=== PATIENT | male | born 1955 | race Caucasian/White ===

== ENCOUNTER 2024-04-23 14:05 | Outpatient (RCR) | payer MEDICARE, BC, SELFPAY | END 2024-08-21 23:59 | disposition home or self-care (01) | PROVIDERS: Visit Provider Orthopaedic Surgery | DX: M16.11 Unilateral primary osteoarthritis, right hip (principal); Z96.641 Presence of right artificial hip joint; M25.551 Pain in right hip; Z51.89 Encounter for other specified aftercare | CPT/HCPCS: 97110; 97162 ==

== ENCOUNTER 2024-04-24 09:47 | Outpatient (CLI) | payer MEDICARE, BC, SELFPAY | END 2024-04-24 09:48 | disposition home or self-care (01) | LOC: RAD 09:48 | PROVIDERS: Visit Provider Physician Assistant | DX: R01.1 Cardiac murmur, unspecified (principal); I35.0 Nonrheumatic aortic (valve) stenosis; I34.0 Nonrheumatic mitral (valve) insufficiency; I07.1 Rheumatic tricuspid insufficiency | CPT/HCPCS: 93306 ==

== ENCOUNTER 2024-04-30 06:58 | Day surgery (SDC) | payer MEDICARE, BC, SELFPAY ==
[2024-04-30] VITALS (15 sets, daily range): BP systolic 96–132; BP diastolic 53–84; PULSE 69–82; RESP 12–16; TEMP 36.3–37.1; O2SAT 92–96; BMI 38.0
--- OUTSIDE RECORDS SUMMARY | 2024-04-30 07:04 | XMS_ITS | Encounter Summary ---
Author Organization [facility] Address [address] [place] [address] Care Team Providers Care Roof Bolter Name Role Phone Claire Jimenez P.A.-C., P.A. Primary Care Provider Reason for Referral * Outpatient (Routine) - Closed Specialty Diagnoses / Procedures Referred By Lucinda franco Referred To Contact Diagnoses Preoperative Exam Procedures ECG 12 Lead Claire Jimenez MPAS, P.A.-C., P.A. [address] [place] [phone] [facility] Referral ID Status Reason Start Date Expiration Date Visits Re quested Visits Authorized [id number] Closed 04/15/2024 04/15/2025 1 1 Reason for Visit * Outpatient (Routine) - Closed Specialty Diagnoses / Procedures Referred By Lucinda franco Referred To Contact Diagnoses Preoperative Exam Procedures ECG 12 Lead Claire Jimenez MPAS, P.A.-C., P.A. [address] [place] [phone] [facility] Region Referral ID Status Reason Start Date Expiration Date Visits Re quested Visits Authorized [id number] Closed 04/15/2024 04/15/2025 1 1 Encounter Details Date Type Department Care Team (Latest Contact Info) Description 04/15/2024 4:40 PM CDT - 04/15/2024 11:59 PM CDT Hospital Encounter Department of Radiology in [place], [place] [address] [place] [phone] Claire Jimenez MPAS, P.A.-C., P.A. [address] [place] [phone] Preoperative Exam Discharge Disposition: Home or Self Care Social History Tobacco Use Types Packs/Day Years Used Date Smoking Tobacco: Never Smokeless Tobacco: Never Alcohol Use Standard Drinks/Week Comments Yes 2 (1 standard drink = 0.6 oz pur e alcohol) [facility] Utilities Answer Date Recorded In the past 12 months has [employer], oil, or water [employer] threatened to shut off services in your home? No 02/03/2024 Humiliation, Afraid, Rape, and Kick questionnair e Answer Date Recorded Within the last year, have y ou been afraid of your partner or ex-partner? No 10/27/2022 Within the last year, have y ou been humiliated or emotionally abused in other ways by your partner or ex-partner? No Within the last year, have y ou been kicked, hit, slapped, or otherwise physically hurt by your partner or ex-partner? No 10/27/2022 Within the last year, have y ou been raped or forced to have any kind of sexual activity by your partner or ex-partner? No 10/27/2022 Social Connection and Isolat ion Panel [NHANES] Answer Date Recorded In a typical week, how many times do you talk on the phone with family, friends, or neighbors? Three times a week 10/27/2022 How often do you get togethe r with friends or relatives? Once a week 10/27/2022 How often do you attend [facility] or adventism services? More than 4 times per year 10/27/2022 Do you belong to any clubs o r organizations such as samaritan groups, unions, fraternal or athletic groups, or school groups? Yes 10/27/2022 How often do you attend meet ings of the clubs or organizations you belong to? More than 4 times per year 10/27/2022 Are you , , di vorced, , never , or living with a partner? 10/27/2022 AUDIT-C Answer Date Recorded Q1: How often do you have a drink containing alc ohol? 2-4 times a month 10/27/2022 Q2: How many drinks containi ng alcohol do you have on a typical day when you are drinking? 1 or 2 10/27/2022 Q3: How often do you have si x or more drinks on one occasion? Never 10/27/2022 Overall Financial Resource Strain (CARDIA) Answe r Date Recorded How hard is it for you to pa y for the very basics like food, housing, medical care, and heating? Not hard at all 10/27/2022 PHQ-2 Answer Date Recorded PHQ-2 Score 2 04/09/2024 [facility] of Occupat ional Health - Occupational Stress Questionnaire Answer Date Recorded Do you feel stress - tense, restless, nervous, or anxious, or unable to sleep at night because your mind is troubled all the time - these days? To some extent 10/27/2022 Exercise Vital Sign Answer Date Recorde d On average, how many days pe r week do you engage in moderate to strenuous exercise (like a brisk walk)? 0 days 02/03/2024 On average, how many minutes do you engage in exercise at this level? 0 min 02/03/2024 Hunger Vital Sign Answer Date Recorded Within the past 12 months, y ou worried that your food would run out before you got the money to buy more. Never true 02/03/20 24 Within the past 12 months, t he food you bought just didn't last and you didn't have money to get more. Never true 02/03/2024 PRAPARE - Transportation Answer Date Re corded In the past 12 months, has l ack of transportation kept you from medical appointments or from getting medications? No 09/2023 In the past 12 months, has l ack of transportation kept you from meetings, work, or from getting things needed for daily living? No 02/03/2024 Nutrition Answer Date Recorded On average, how many serving s of fruits and vegetables do you eat per day (serving size is equal to 1 cup or approximately the size of a tennis ball)? 0-2 02/03/2024 Dental Answer Date Recorded Dental: Regular Dentist No 04/29/20 Employment Answer Date Recorded Employment status Employed and actively working without restrictions 02/03/2024 Housing Stability Answer Date Recorded What is your living situation today? I have a [facility] place to live 02/03/2024 Education Answer Date Recorded What is the highest level of school you have completed or the highest degree you have received? 12th grade 04/29/2022 Sex and Gender Information Value Date Recorded Sex Assigned at Male 04/29/2022 3:19 PM CDT Gender Identity Male 04/29/2022 3:19 PM CDT Sexual Orientation Straight 04/29/2022 3: 19 PM CDT documented as of this encounter Medications at Time of Discharge Medication Sig Dispensed Refills Start Date End Date calcium carbonate 650 mg calcium (1,625 mg) tablet Take 600 mg by mouth daily. cholecalciferol, vitamin D3, (cholecalciferol) 25 mcg (1,000 Unit) tablet Take 25 mcg by mouth daily. DME CPAPIndications:Apnea Sleep Obstructive DME Order 1 each 04/16/2024 rosuvastatin (Crestor) 10 mg tabletIndications:Hyperl ipidemia Take 1 tablet (10 mg total) by mouth daily. 90 tablet 3 04/16/2024 tamsulosin (FLOMAX) 0.4 mg 24 hr capsule Take 1 capsule (0.4 mg total) by mouth daily as needed (stent pain). 30 capsule 6 01/18/2024 UNABLE TO FIND Take 1 each by mouth daily. Med Name: RAMOS REYNA documented as of this encounter Plan of Treatment Upcoming Encounters Date Type Department Care Team (Latest Contact Info) Description 05/08/2024 4:00 PM CDT Office Visit Department of Family Medicine, [facility], in [place], [place] [address] [place] [phone] Claire Jimenez MPAS, P.A.-C., P.A. [address] [place] [phone] 05/10/2024 11:30 AM CDT Comprehensive Visit Department of Physical Medicine and Rehabilitation in [place] [address] [address] [place] [phone] Claire Jimenez MPAS, P.A.-C., P.A. [address] [place] [phone] Micaela Monae P.T. [address] [place] [phone] 07/10/2024 9:30 AM CUSTOMER SUPPORT ENGINEER Appointment Department of Cardiovascular Diseases in [place] [address] [address] [facility] [place] [phone] Claire Jimenez MPAS, P.A.-C., P.A. [address] [place] [phone] documented as of this encounter Procedures Procedure Name Priority Date/Time Associated Diagnosis Comments ECG Routine 04/15/2024 4:28 PM CDT Preoperative Exam documented in this encounter Results * ECG 12 Lead (04/15/2024 4:28 PM CDT) Ventricular Rate ECG/Min 82 BPM MUSE AZ Interval 198 ms MUSE QRSD Interval 82 ms MUSE QT Interval 388 ms MUSE QTC Interval 453 ms MUSE P Sapphire 69 degrees MUSE R Sapphire 31 degrees MUSE T Wave Sapphire 69 degrees MUSE 04/15/2024 4:28 PM CDT 04/15/2024 5:04 PM CDT Impressions MUSE - 04/15/2024 5:04 PM CDT Normal sinus rhythm Nonspecific ST and T wave abnormality No previous ECGs available Reviewed by DONTE Fink Narrative Procedure Note Juan Francisco Malik M.D., Ph.D. - 04/15/2024 IMPRESSION: Normal sinus rhythm Nonspecific ST and T wave abnormality No previous ECGs available Reviewed by DONTE Fink Claire PATEL P.A.-C., P.A. ECG ORDERABLES MUSE NA documented in this encounter Visit Diagnoses Diagnosis Preoperative Exam documented in this encounter Care Teams Roof Bolter Relationship Specialty Start Date End Date Claire Jimenez MPAS, P.A.Hebert., P.A. [address] [place] [phone] PCP - General Family Medicine 04/01/24 documented as of this encounter
--- OUTSIDE RECORDS SUMMARY | 2024-04-30 07:04 | XMS_ITS ---
Author Organization [facility] Address [address] [place] [address] Care Team Providers Care Optometric Assistant Name Role Phone Claire Jimenez, P.A.-C., P.A. Primary Care Provider Active Problems Problem Noted Date Diagnosed Date Stenosis Aortic Valve Acquired 04/29/2024 Overview (04/29/2024): 04/2024: new murmur heard on exam, echo confirmed mild aortic stenosis. 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 on 12/12/2022 Screening Cancer Colon 05/03/2022 Overview (05/03/2022): Added automatically from request for surgery [id number] Current Oncology Plans No current plan information found. Past Plans Hem/Onc Therapy Plan 1 Plan Name Start Date Discontinue Date Treatment Medications Discontinue Reason Plan Provider Leuprolide Acetate Every 24 Weeks 12/13/2022 03/24/2024 No medications scheduled. Amendment Change Michael Kingsley, TIMOTHY, C.N.P., D.N.P. Radiation Treatments * Plan Last Treated On Elapsed Days Fractions Treated Prescribed Fraction Dose Prescribed Total Dose [id number] 02 04/04/2023 36 26 of 26 270 cGy 7,020 cGy Reference Point Last Treated On Elapsed Days Session Dose Total Dose [id number] 04/04/2023 36 270 cGy 7,020 cGy Lifetime Dose Tracking * Chemical Lifetime Dose Automatic Entry Manual Entr y Radiation 33.8 mGy 33.8 mGy 0 mGy Fluoro Time 3.706 minutes 3.706 minutes 0 minutes Resolved Problems Problem Noted Date Diagnosed Date Resolved Date Tumor Prostate 10/27/2022 12/12/2022 Overview (10/27/2022): Added automatically from request for surgery [id number]
--- OUTSIDE RECORDS SUMMARY | 2024-04-30 07:04 | XMS_ITS | Encounter Summary ---
Author Organization [facility] Address [address] [place] [address] Care Team Providers Care Camper Assembler Name Role Phone No Contact, Pcp Primary Care Provider Unavailabl e Encounter Details Date Type Department Care Team (Late st Contact Info) Description 03/24/2024 Orders Only Department of Radiation Oncology in [place], [place] [address] [place] [phone] Demetri Dick M.D. [address] [place] [phone] Social History Tobacco Use Types Packs/Day Years Used Date Smoking Tobacco: Never Smokeless Tobacco: Never Alcohol Use Standard Drinks/Week Comments Yes 2 (1 standard drink = 0.6 oz pur e alcohol) [facility] Utilities Answer Date Recorded In the past 12 months has [facility] [employer], gas, oil, or water [employer] threatened to shut off services in your [...] week 10/27/2022 How often do you attend chur or jain services? More than 4 times per year 10/27/2022 Do you belong to any clubs o r organizations such as jewish groups, unions, fraternal or athletic groups, or [...] 10/27/2022 PHQ-2 Answer Date Recorded PHQ-2 Score 0 10/27/2022 [facility] of Occupat ional Health - Occupational Stress [...] Date Recorded Dental: Regular Dentist No 04/29/20 22 Employment Answer Date Recorded Employment status Employed and actively working without restrictions 02/03/2024 Housing Stability Answer Date Recorded What is your living situation today? I have a [facility] place to live 02/03/2024 Education Answer [...] PM CDT documented as of this encounter Plan of Treatment Upcoming Encounters Date Type Department Care Team (Latest Contact Info) Description 05/08/2024 4:00 PM CDT Office Visit Department of Family Medicine, [facility], in [place], [place] [address] [place] [phone] Claire Jimenez MPAS, P.A.-C., P.A. [address] [place] [phone] 05/10/2024 11:30 AM CDT Comprehensive Visit Department of Physical Medicine and Rehabilitation in [address] [phone] Claire Jimenez MPAS, P.A.-C., P.A. [address] [place] [phone] Micaela Monae P.T. [address] [place] [phone] 07/10/2024 9:30 AM POWERHOUSE HELPER Appointment Department of Cardiovascular Diseases in [address] [phone] Claire Jimenez MPAS, P.A.-C., P.A. [address] [place] [phone] documented as of this encounter Visit Diagnoses Not on filedocumented in this encounter Care Teams Camper Assembler Relationship Specialty Start Date End Date No Contact, Pcp PCP - General Family Medicine 07/31/19 03/31/24 documented as of this encounter
--- OUTSIDE RECORDS SUMMARY | 2024-04-30 07:04 | XMS_ITS | Encounter Summary ---
Author Organization [facility] Address [address] [place] [address] Care Team Providers Care Social Media Executive Name Role Phone Claire Jimenez P.A.-C., P.A. Primary Care Provider Reason for Visit * Reason Onset Date Comments Results 04/25/2024 ECG Encounter Details Date Type Department Care Team (Late st Contact Info) Description 04/25/2024 Clinical Communication Department of Family Medicine, [facility], in [place], [place] [address] [place] [phone] Claire Jimenez MPAS, P.A.-C., P.A. [address] [place] [phone] Results (ECG) Social History Tobacco Use Types Packs/Day Years Used Date Smoking Tobacco: Never Smokeless Tobacco: Never Alcohol Use Standard Drinks/Week Comments Yes 2 (1 standard drink = 0.6 oz pur e alcohol) [facility] Utilities Answer Date Recorded In the past 12 months has e electric, gas, oil, or water company threatened to shut off services in your [...] How often do you attend chur or sabianism services? More than 4 times per year 10/27/2022 Do you belong to any clubs o r organizations such as restorationist groups, unions, fraternal or athletic groups, or [...] Answer Date Recorded PHQ-2 Score 2 04/09/2024 [facility] [place] [facility] of Occupat ional Health - Occupational Stress [...] your living situation today? I have a [facility] place to live 02/03/2024 Education Answer [...] CDT Office Visit Department of Family Medicine, [facility], in [address] [phone] Claire Jimenez MPAS, P.A.-C., P.A. [address] [place] [address], [place] [phone] 05/10/2024 11:30 AM CDT Comprehensive Visit Department of Physical Medicine and Rehabilitation in [address] [place] [phone] Claire Jimenez MPAS, P.A.-C., P.A. [address] [place] [address], [place] [phone] Micaela Monae P.T. [address] [place] [phone] 07/10/2024 9:30 AM CONTINUOUS PILLOWCASE CUTTER Appointment Department of Cardiovascular Diseases in [address] [place] [phone] Claire Jimenez MPAS, P.A.-C., P.A. [address] [place] [phone] documented as of this encounter Visit Diagnoses Not on filedocumented in this encounter Care Teams Social Media Executive Relationship Specialty Start Date End Date Claire Jimenez MPAS, P.A.-C., P.A. [address] [place] [phone] PCP - General Family Medicine 04/01/24 documented as of this encounter
--- OUTSIDE RECORDS SUMMARY | 2024-04-30 07:04 | XMS_ITS | Encounter Summary ---
Author Organization [facility] Address [address] [place] [address] Care Team Providers Care Enforcement Safety Officer Name Role Phone Claire Jimenez P.A.-C., P.A. Primary Care Provider Encounter Details Date Type Department Care Team (Latest Contact Info) Description 04/15/2024 4:25 PM CDT - 04/15/2024 4:39 PM CDT Hospital Encounter Department of Laboratory Medicine in [place], [place] [address] [place] [phone] Claire Jimenez MPAS, P.A.-C., P.A. [address] [place] [phone] Preoperative Exam; Screening Lipid; Encounter For Screening For Cardiovascular Disorders; Screening Examination Diabetes Mellitus Discharge Disposition: Home or Self Care Social History Tobacco Use Types Packs/Day Years Used Date Smoking Tobacco: Never Smokeless Tobacco: Never Alcohol Use Standard Drinks/Week Comments Yes 2 (1 standard drink = 0.6 oz pur e alcohol) [facility] Utilities Answer Date Recorded In the past 12 months has [employer] electric, gas, oil, or water company threatened [...] week 10/27/2022 How often do you attend [facility] or sikh services? More than 4 times per year 10/27/2022 Do you belong to any clubs o r organizations such as jain groups, unions, fraternal or athletic groups, or [...] Answer Date Recorded PHQ-2 Score 2 04/09/2024 [facility] of Occupat ional Health - Occupational Stress [...] your living situation today? I have a [facility] place to live 02/03/2024 Education Answer [...] CDT Office Visit Department of Family Medicine, [facility], in [address] [phone] Claire Jimenez MPAS P.A.-C., P.A. [address] [place] [phone] 05/10/2024 11:30 AM CDT Comprehensive Visit Department of Physical Medicine and Rehabilitation in [address] [phone] Claire Jimenez MPAS, Yoel.A.-C., P.A. [address] [place] [phone] Micaela Monae P.T. [address] [place] [phone] 07/10/2024 9:30 AM BLOW MOLDER Appointment Department of Cardiovascular Diseases in [address] [phone] Claire Jimenez MPAS P.A.-C., P.A. [address] [place] [phone] documented as of this encounter Procedures Procedure Name Priority Date/Time Associated Diagnosis Comments LIPID PANEL, S Routine 04/15/2024 4:33 PM CDT Screening Lipid Encounter For Screening For Cardiovascular Disorders NT-PRO B-TYPE NATRIURETIC PEPTIDE (BNP), S Routine 04/15/2024 4:33 PM CDT Preoperative Exam CBC WITH DIFFERENTIAL, B Routine 04/15/2024 4:33 PM CDT Preoperative Exam HEMOGLOBIN A1C, B Routine 04/15/2024 4:3 3 PM CDT Screening Examination Diabetes Mellitus BASIC METABOLIC PANEL, S/P Routine 04/15/2024 4:33 PM CDT Preoperative Exam documented in this encounter Results * NT-Pro B-Type Natriuretic Peptide (BNP) (04/15/2024 4:33 PM CDT) NT-Pro BNP 89 <=540 pg/mL 04/15/2024 5:13 PM CDT [facility] Comment: NT-proBNP values less than 300 pg/mL have a 99% negative predictive value for excluding acute congestive heart failure. A cutoff of 1200 pg/mL for patients with an eGFR<60 yields a diagnostic sensitivity and specificity of 89% and 72% for acute congestive heart failure. A diagnostic NT-proBNP cutoff of 900 pg/mL has been suggested in adults 50-75 years of age in the absence of renal failure. Blood (Blood, Venous) 04/15/2024 4:33 PM CDT 04/15/2024 4:36 PM CDT Claire PATEL, P.A.-C., P.A. LAB BLOOD ADD-ON [facility] [address] [place] [address], [facility] [place] [address] [place] [phone] * (ABNORMAL) Hemoglobin A1c (04/15/2024 4:33 PM CDT) Hemoglobin A1c, B 6.0(H) 4.2 - 5.6 % 04/15/2024 5:01 PM CDT RDW Comment: Hemoglobin A1c values of 5.7-6.4 percent indicate an increased risk for developing diabetes mellitus. In diabetic patients, HbA1c goals should be discussed with healthcare provider. Blood (Blood, Venous) 04/15/2024 4:33 PM CDT 04/15/2024 4:36 PM CDT Claire PATEL, P.A.-C., P.A. LAB BLOOD ADD-ON [facility] [address] [place] [address], [facility] [place] [address] [place] [phone] * (ABNORMAL) Lipid Panel (04/15/2024 4:33 PM CDT) Triglycerides 333(H) mg/dL 04/15/2024 5:00 PM CDT RDW Comment: ----REFERENCE VALUE---- Normal: <150 mg/dL Borderline High: 150-199 mg/dL High: 200-499 mg/dL Very High: > or =500 mg/dL Cholesterol, Total 233(H) mg/dL 2023 5:00 PM CDT RDW Comment: ----REFERENCE VALUE---- Desirable: < 200 mg/dL Borderline High: 200 - 239 mg/dL High: > or = 240 mg/dL Cholesterol, LDL, Calculated 136(H) mg/dL 04/15/2024 5:00 PM CDT RDW Comment: ----REFERENCE VALUE---- Desirable: <100 mg/dL Above Desirable: 100-129 mg/dL Borderline High: 130-159 mg/dL High: 160-189 mg/dL Very High: >=190 mg/dL ----ADDITIONAL INFORMATION---- LDL cholesterol calculated using the Mcdermott/NIH equation. Cholesterol, HDL 37(L) >=40 mg/dL 04/15/20 5:00 PM CDT [facility] Cholesterol, Non-HDL, Calculated 196(H) mg/dL 04/15/2024 5:00 PM CDT [facility] Comment: ----REFERENCE VALUE---- Desirable: <130 mg/dL Above Desirable: 130-159 mg/dL Borderline High: 160-189 mg/dL High: 190-219 mg/dL Very High: > or =220 mg/dL Fasting (8 HR or more) No 04/15/2024 4:33 PM CDT [facility] Blood (Blood, Venous) 04/15/2024 4:33 PM CDT 04/15/2024 4:36 PM CDT Claire PATEL, P.A.-C., P.A. LAB BLOOD ADD-ON [facility] [address] [place] [address], [facility] [place] [address] [place] [phone] * Basic Metabolic Panel (04/15/2024 4:33 PM CDT) Potassium, P 4.5 3.6 - 5.2 mmol/L 04/15/2024 5:00 PM CDT [facility] Sodium, P 136 135 - 145 mmol/L 04/15/2024 5:00 PM CDT [facility] Chloride, P 100 98 - 107 mmol/L 04/15/2024 5:00 PM CDT [facility] Bicarbonate, P 25 22 - 29 mmol/L 04/15/2024 5:00 PM CDT [facility] Anion Gap, P 11 7 - 15 04/15/2024 5:00 PM CDT [facility] BUN (Blood Urea Nitrogen), P 18 8 - 24 mg/dL 04/15/2024 5:00 PM CDT [facility] Creatinine 1.16 0.74 - 1.35 mg/dL 04/15/2024 5:00 PM CDT [facility] Estimated GFR (eGFR) 68 >=60 mL/min/BSA 04/15/2024 5:00 PM CDT [facility] Comment: Estimated GFR calculated using the 2020 CKD_EPI creatinine equation. Calcium, Total, P 10.1 8.8 - 10.2 mg/dL 04/15/2024 5:00 PM CDT [facility] Glucose, P 98 70 - 140 mg/dL 04/15/2024 5:00 PM CDT [facility] Blood (Blood, Venous) 04/15/2024 4:33 PM CDT 04/15/2024 4:36 PM CDT Claire PATEL, P.A.-C., P.A. LAB BLOOD ADD-ON [facility] [address] [place] [address], [facility] [place] [address] [place] [address] * (ABNORMAL) CBC with Differential, Blood (04/15/2024 4:33 PM CDT) Hemoglobin 14.5 13.2 - 16.6 g/dL 04/15/2024 4:46 PM CDT [facility] Hematocrit 43.1 38.3 - 48.6 % 04/15/2024 4:46 PM CDT [facility] Erythrocytes 4.89 4.35 - 5.65 x10(12)/L 04/15/2024 4:46 PM CDT [facility] MCV 88.1 78.2 - 97.9 fL 04/15/2024 4:46 PM CDT [facility] RBC Distrib Width 13.0 11.8 - 14.5 % 04/15/2024 4:46 PM CDT [facility] Platelet Count 227 135 - 317 x10(9)/L 04/15/2024 4:46 PM CDT [facility] Leukocytes 5.4 3.4 - 9.6 x10(9)/L 04/15/2024 4:46 PM CDT [facility] Neutrophils 3.75 1.56 - 6.45 x10(9)/L 04/15/2024 4:46 PM CDT [facility] Lymphocytes 0.78(L) 0.95 - 3.07 x10(9)/L 04/15/2024 4:46 PM CDT [facility] Monocytes 0.65 0.26 - 0.81 x10(9)/L 04/15/2024 4:46 PM CDT [facility] Eosinophils 0.18 0.03 - 0.48 x10(9)/L 04/15/2024 4:46 PM CDT [facility] Basophils 0.04 0.01 - 0.08 x10(9)/L 04/15/2024 4:46 PM CDT [facility] Blood (Blood, Venous) 04/15/2024 4:33 PM CDT 04/15/2024 4:36 PM CDT Claire PATEL P.A.-C., P.A. LAB BLOOD ADD-ON [facility] [address] [place] [address], [facility] [place] [address] [place] [phone] documented in this encounter Visit Diagnoses Diagnosis Preoperative Exam Screening Lipid Encounter For Screening For Cardiovascular Disorders Screening Examination Diabetes Mellitus documented in this encounter Care Teams Enforcement Safety Officer Relationship Specialty Start Date End Date Claire Jimenez MPAS, P.A.-C., P.A. [address] [place] [address] [place] [phone] PCP - General Family Medicine 04/01/24 documented as of this encounter
--- OUTSIDE RECORDS SUMMARY | 2024-04-30 07:04 | XMS_ITS | Encounter Summary ---
Author Organization [facility] Address [address] [place] [address] Care Team Providers Care Interior Assemblies Installer Name Role Phone Claire Jimenez P.A.-C., P.A. Primary Care Provider Encounter Details Date Type Department Care Team (Late st Contact Info) Description 04/19/2024 Clinical Communication Department of Family Medicine, [facility], in [place], [place] [address] [place] [phone] Claire Jimenez MPAS, P.A.-C., P.A. [address] [place] [phone] Social History Tobacco Use Types Packs/Day Years Used Date Smoking Tobacco: Never Smokeless Tobacco: Never Alcohol Use Standard Drinks/Week Comments Yes 2 (1 standard drink = 0.6 oz pur e alcohol) [facility] Utilities Answer Date Recorded In the [...] 10/27/2022 How often do you attend chur ch or adventist services? More than 4 times per year 10/27/2022 Do you belong to any clubs o r organizations such as latter-day groups, unions, fraternal or athletic groups, or [...] Answer Date Recorded PHQ-2 Score 2 04/09/2024 [facility] of Occupat ional Health - [...] your living situation today? I have a [facility] place to live 02/03/2024 Education [...] PM CDT documented as of this encounter Miscellaneous Notes * Telephone Encounter - Linnea Mariano L.P.N. - 04/19/2024 1:17 PM CDT refaxed documented in this encounter Plan of Treatment Upcoming Encounters Date Type Department Care Team (Latest Contact Info) Description 05/08/2024 4:00 PM CDT Office Visit Department of Family Medicine, [facility], [facility] [address] [place] [phone] Claire Jimenez MPAS, P.A.-C., P.A. [address] [place] [phone] 05/10/2024 11:30 AM CDT Comprehensive Visit Department of Physical Medicine and Rehabilitation in [address] [place] [phone] Claire Jimenez MPAS, P.A.-C., P.A. [address] [place] [phone] Micaela Monae P.T. [address] [place] [phone] 07/10/2024 9:30 AM SELLING UNDERWRITER Appointment Department of Cardiovascular Diseases in [address] [place] [phone] Claire Jimenez MPAS, P.A.-C., P.A. [address] [place] [phone] documented as of this encounter Visit Diagnoses Not on filedocumented in this encounter Care Teams Interior Assemblies Installer Relationship Specialty Start Date End Date Claire Jimenez MPAS, P.A.-C., P.A. [address] [place] [phone] PCP - General Family Medicine 04/01/24 documented as of this encounter
--- OUTSIDE RECORDS SUMMARY | 2024-04-30 07:04 | XMS_ITS | Encounter Summary ---
Author Organization [facility] Address [address] [place] [address] Care Team Providers Care Drapery Counselor Name Role Phone Claire Jimenez, P.A.-C., P.A. Primary Care Provider Reason for Visit * Reason Onset Date Comments Follow-up Orders 04/17/2024 Pre-op for Righ t Hip Total Arthroplasty Encounter Details Date Type Department Care Team (Latest Contact Info) Description 04/17/2024 Clinical Communication Department of Family Medicine, [facility], in [place], [place] [address] [place] [phone] Laura Segundo, RDavidN. Follow-up Orders (Pre-op for Right Hip Total Arthroplasty) Social History Tobacco Use Types Packs/Day Years Used Date Smoking Tobacco: Never Smokeless Tobacco: Never Alcohol Use Standard Drinks/Week Comments Yes 2 (1 standard drink = 0.6 oz pur e alcohol) [facility] Utilities Answer Date Recorded In the past 12 months has th e electric, gas, oil, or water company [...] often do you attend chur ch or restoration services? More than 4 times per year 10/27/2022 Do you belong to any clubs o r organizations such as druze groups, unions, fraternal or athletic groups, or [...] Answer Date Recorded PHQ-2 Score 2 04/09/2024 [employer] [facility] of Occupat ional Health - Occupational Stress [...] your living situation today? I have a [facility] place to live 02/03/2024 Education Answer [...] encounter Miscellaneous Notes * Telephone Encounter - Laura Segundo, R.N. - 04/17/2024 8:43 AM CDT PLAN The following information was provided: Contacted [facility] (CASANDRA on file) operations scheduler for Dr. Hansen as patient is scheduled for right total hip arthroplasty on 04/30/24. Patient was in clinic on 04/15/24 for preop clearance and PCP found new diagnosis of heart murmur and recommends a echocardiogram for further evaluation before he can be cleared for surgery. RN let operations scheduler know that the patient is scheduledfor echocardiogram on 07/10/24 and it will be up to surgeon's discretion if wanting to proceed with planned surgery given his new heart murmur. RN will electronically fax 04/15/24 note to surgery team at: [phone] (done). Information/Education: not applicable The following references were used: provider Claire Jimenez PA-C * Telephone Encounter - Laura Segundo R.N. - 04/17/2024 8:38 AM CDT ----- Message from Claire Jimenez P.A.-C., P.A. sent at 04/16/2024 6:12 PM CDT ----- Hi, Patient has new diagnosis of heart murmur and I recommend a echocardiogram for further evaluation before he can be cleared for surgery. Would you be able to contact his surgical team with [facility] [place] to inform them. It will be up to surgeon's discretion if wanting to proceed with planned surgery given his new heart murmur, I believe it is mild aortic stenosis. No other concerns besides his new heart murmur for proceeding with surgery. But recommend heart ultrasound prior to surgery. Surgery Team: Dr. Yoni Lutz MD [facility] [place] and [facility] [place], [place] Thank you, Claire documented in this encounter Plan of Treatment Upcoming Encounters Date Type Department Care Team (Latest Contact Info) Description 05/08/2024 4:00 PM CDT Office Visit Department of Family Medicine, [facility], in [address] [phone] Claire Jimenez MPAS, PIzzy., P.A. [address] [place] [address], [place] [phone] 05/10/2024 11:30 AM CDT Comprehensive Visit Department of Physical Medicine and Rehabilitation in [address] [place] [phone] Claire Jimenez MPAS, P.A.-C., P.A. [address] [place] [address], [place] [phone] Micaela Monae P.T. [address] [place] [phone] 07/10/2024 9:30 AM BUSINESS DEVELOPER Appointment Department of Cardiovascular Diseases in [address] [place] [phone] Claire Jimenez MPAS, P.A.-C., P.A. [address] [place] [phone] documented as of this encounter Visit Diagnoses Not on filedocumented in this encounter Care Teams Drapery Counselor Relationship Specialty Start Date End Date Claire Jimenez MPAS, P.A.-C., P.A. [address] [place] [phone] PCP - General Family Medicine 04/01/24 documented as of this encounter
--- OUTSIDE RECORDS SUMMARY | 2024-04-30 07:04 | XMS_ITS | Encounter Summary ---
Author Organization [facility] Address [address] [place] [address] Care Team Providers Care Event Planning Manager Name Role Phone Claire Jimenez P.A.-C., P.A. Primary Care Provider Reason for Visit * Reason Onset Date Comments Communication 04/29/2024 Encounter Details Date Type Department Care Team (Late st Contact Info) Description 04/29/2024 Clinical Communication Department of Family Medicine, [facility], in [place], [place] [address] [place] [phone] Claire Jimenez MPAS, P.A.-C., P.A. [address] [place] [phone] Communication Social History Tobacco Use Types Packs/Day Years Used Date Smoking Tobacco: Never Smokeless Tobacco: Never Alcohol Use Standard Drinks/Week Comments Yes 2 (1 standard drink = 0.6 oz pur e alcohol) [facility] Utilities Answer Date Recorded In the [...] often do you attend chur ch or moravian services? More than 4 times per year 10/27/2022 Do you belong to any clubs o r organizations such as mandaeism groups, unions, fraternal or athletic groups, or [...] Answer Date Recorded PHQ-2 Score 2 04/09/2024 [facility] of Occupat ional Health - Occupational Stress [...] your living situation today? I have a [facility] place to live 02/03/2024 Education [...] encounter Miscellaneous Notes * Telephone Encounter - Mildred Mart L.P.N. - 04/29/2024 2:24 PM CDT This has been faxed as requested documented in this encounter Plan of Treatment Upcoming Encounters Date Type Department Care Team (Latest Contact Info) Description 05/08/2024 4:00 PM CDT Office Visit Department of Family Medicine, [facility], in [address] [place] [phone] Claire Jimenez MPAS, P.A.-C., P.A. [address] [place] [address], [place] [phone] 05/10/2024 11:30 AM CDT Comprehensive Visit Department of Physical Medicine and Rehabilitation in [address] [place] [phone] Claire Jimenez MPAS, P.A.-C., P.A. [address] [place] [phone] Micaela Monae P.T. [address] [place] [phone] 07/10/2024 9:30 AM TRAFFIC COUNTER Appointment Department of Cardiovascular Diseases in [address] [place] [phone] Claire Jimenez MPAS, P.A.-C., P.A. [address] [place] [phone] documented as of this encounter Visit Diagnoses Not on filedocumented in this encounter Care Teams Event Planning Manager Relationship Specialty Start Date End Date Claire Jimenez MPAS, P.A.-C., P.A. [address] [place] [phone] PCP - General Family Medicine 04/01/24 documented as of this encounter
--- OUTSIDE RECORDS SUMMARY | 2024-04-30 07:04 | XMS_ITS ---
Author Organization [facility] Address [address] [place] [address] Care Team Providers Care Herpetologist Name Role Phone Unavailable Unavailable Unavailable Surgery Details Not on file Complications Check Surgery Details section. Procedure Estimated Blood Loss Check Surgery Details section. Procedure Findings Check Surgery Details section. Procedure Specimens Taken Check Surgery Details section.
--- OUTSIDE RECORDS SUMMARY | 2024-04-30 07:04 | XMS_ITS | Referral Summary ---
Author Organization [facility] Address [address] [place] [address] Care Team Providers Care Animal Care Supervisor Name Role Phone Claire Jimenez P.A.-C., P.A. Primary Care Provider Source Comments Patient records contain information from all sites at [facility]. For routine questions regarding patient records, call [phone] during business hours, M-F 8:00 AM - 5:00 PM Central Time. Record requests for emergency care only can be directed to [phone] at any time.[facility] Encounters Date Type Department Care Team Description 04/29/2024 Clinical Communication Department of [facility], [facility], [address] [phone] Claire Jimenez MPAS, P.A.-C., P.A. Communication 04/25/2024 Clinical Communication Department of [facility], [facility], [address] [phone] Claire Jimenez MPAS, P.A.-C., P.A. Results (ECG) 04/19/2024 Clinical Communication Department of [facility], [facility], [address] [phone] Claire Jimenez MPAS, P.A.-C., P.A. 04/17/2024 Clinical Communication Department of [facility], [facility], [address] [phone] Laura Segundo R.N. Follow-up Orders (Pre-op for Right Hip Total Arthroplasty) 04/16/2024 Clinical Communication Department of [facility], [facility], [address] [phone] Claire Jimenez MPAS, P.A.-C., P.A. Order Request 04/15/2024 4:40 PM CDT - 04/15/2024 11:59 PM CDT Hospital Encounter Department of Radiology in [address] [phone] Claire Jimenez MPAS, P.A.-C., P.A. Preoperative Exam Discharge Disposition: Home or Self Care 04/15/2024 4:25 PM CDT - 04/15/2024 4:39 PM CDT Hospital Encounter Department of Laboratory Medicine in [address] [phone] Claire Jimenez MPAS, P.A.-C., P.A. Preoperative Exam; Screening Lipid; Encounter For Screening For Cardiovascular Disorders; Screening Examination Diabetes Mellitus Discharge Disposition: Home or Self Care 04/15/2024 2:15 PM CDT Office Visit Department of [facility], [address] [phone] Claire Jimenez MPAS, P.A.-C., P.A. Preoperative Exam (Primary Dx); Primary Osteoarthritis Hip Right; Apnea Sleep Obstructive; Murmur Heart; Primary Malignant Neoplasm Of Prostate (HCC); Hyperlipidemia; Encounter For Screening For Cardiovascular Disorders; PreDiabetes; Stenosis Aortic Valve Acquired Discharge Disposition: Home or Self Care 04/09/2024 Orders Only [facility] Claire Jimenez MPAS, Mike, P.A. 03/24/2024 Orders Only Department of Radiation Oncology in [place], [place] [address] [place] [phone] Demetri Dick M.D. 03/04/2024 Orders Only Department of Radiation Oncology in [place], [place] [address] [place] [phone] Michael Kingsley APRN, C.N.P., D.N.P. Primary Malignant Neoplasm Of Prostate (HCC) (Primary Dx) 03/04/2024 Orders Only Department of Radiation Oncology in [place], [place] [address] [place] [phone] Michael Kingsley APRN, C.N.P., D.N.P. Primary Malignant Neoplasm Of Prostate (HCC) (Primary Dx) 03/01/2024 9:12 AM CDT - 03/01/2024 11:59 PM CDT Hospital Encounter Department of Laboratory Medicine in [address] [phone] Michael Kingsley APRN, C.N.P., D.N.P. Primary Malignant Neoplasm Of Prostate (HCC) Discharge Disposition: Home or Self Care 02/29/2024 Orders Only Department of Radiation Oncology in [address] [phone] Michael Kingsley APRN, C.N.P., D.N.P. Primary Malignant Neoplasm Of Prostate (HCC) (Primary Dx) 02/27/2024 Clinical Communication Department of Radiation Oncology in [place], [place] [address] [place] [phone] Michael Kingsley APRN, C.N.P., D.N.P. 02/12/2024 Orders Only Department of Urology in [address] [phone] Ashlee Fitzpatrick R.N. 02/09/2024 1:25 PM CDT Ancillary Procedure Department of General Surgery 02/09/2024 1:01 PM CDT - 02/09/2024 2:04 PM CDT Surgery Outpatient Procedure Center in [place], [place] [address] [place] [phone] Sylvia Toscano D.O. EXCHANGE URETERAL STENT 02/09/2024 1:55 PM CDT Anesthesia Event Outpatient Procedure Center in [address] [phone] Niya Gastelum APRN, CRNA Dodd, Sarah E, M.D. 02/09/2024 12:20 PM CDT - 02/09/2024 4:32 PM CDT Hospital Encounter Outpatient Procedure Center in [address] [phone] Sylvia Toscano D.O. Discharge Disposition: Home or Self Care 02/08/2024 10:30 AM CDT Office Visit Department of Urology in [address] [phone] Nanda Fu P.A.-C. Obstruction Ureter (Primary Dx) 02/07/2024 12:15 PM CDT Clinical Communication Virtual Review in [address] [phone] Pre-visit Intake 01/30/2024 Clinical Communication Department of Urology in [address] [phone] Liz Ortez from Last 3 Months Allergies No known active allergies Medications Medication Sig Dispensed Refills Start Date End Date Status cholecalciferol, vitamin D3, (cholecalciferol) 25 mcg (1,000 Unit) tablet Take 25 mcg by mouth daily. Active calcium carbonate 650 mg calcium (1,625 mg) tablet Take 600 mg by mouth daily. Active UNABLE TO FIND Take 1 each by mouth daily. Med Name: RAMOS REYNA Active tamsulosin (FLOMAX) 0.4 mg 24 hr capsule Take 1 capsule (0.4 mg total) by mouth daily as needed (stent pain). 30 capsule 6 01/18/2024 Active DME CPAPIndications:Ap mata Sleep Obstructive DME Order 1 each 04/16/2024 Active rosuvastatin (Crestor) 10 mg tabletIndications: Hyperlipidemia Take 1 tablet (10 mg total) by mouth daily. 90 tablet 3 04/16/2024 Active tamsulosin (FLOMAX) 0.4 mg 24 hr capsule take 1 capsule by mouth every day 90 capsule 2 07/14/2023 04/15/2024 Discontinued (Therapy completed) albuterol 90 mcg/actuation inhalerIndications :Infection Respiratory Lower Inhale 2 puffs every 4 (four) hours as needed for wheezing. 18 g 09/03/2023 04/15/2024 Discontinued (Therapy completed) trospium (SANCTURA) 20 mg tablet Take 1 tablet (20 mg total) by mouth 2 (two) times a day as needed (Bladder spasms). 60 tablet 6 09/07/2023 04/15/2024 Discontinued (Therapy completed) Active Problems Problem Noted Date Diagnosed Date [...] (05/03/2022): Added automatically from request for surgery [id number] Resolved Problems Problem Noted Date Diagnosed Date Resolved Date Tumor Prostate 10/27/2022 12/12/2022 Overview (10/27/2022): Added automatically from request for surgery [id number] Immunizations Name Administration Dates Next Due Tdap 08/13/2012 Social History Tobacco Use Types Packs/Day Years Used Date Smoking Tobacco: Never Smokeless Tobacco: Never Alcohol Use Standard Drinks/Week Comments Yes 2 (1 standard drink = 0.6 oz pur e alcohol) [facility] Utilities Answer Date Recorded In [...] How often do you attend chur or mu-ism services? More than 4 times per year 10/27/2022 Do you belong to any clubs o r organizations such as advent groups, unions, fraternal or athletic groups, or [...] Answer Date Recorded PHQ-2 Score 2 04/09/2024 [facility] Occupat ional [facility] - Occupational Stress Questionnaire Answer Date Recorded [...] your living situation today? I have a [facility] place to live 02/03/2024 Education Answer Date Recorded What is the highest level of school you have completed or the highest degree you have received? 12th grade 04/29/2022 Sex and Gender Information Value Date Recorded Sex Assigned at Male 04/29/2022 3:19 PM CDT Gender Identity Male 04/29/2022 3:19 PM CDT Sexual Orientation Straight 04/29/2022 3: 19 PM CDT Last Filed Vital Signs Vital Sign Reading Time Taken Comments Blood Pressure 147/84 04/15/2024 2:25 PM CDT Pulse 78 04/15/2024 2:25 PM CDT Temperature 36.4 ??C (97.5 ??F) 04/15/2024 2:16 PM CD T Respiratory Rate 19 02/09/2024 4:10 PM CDT Oxygen Saturation 94% 02/09/2024 4:10 PM CDT Inhaled Oxygen Concentration - - Weight 122 kg (269 lb 10 oz) 04/15/2024 2:16 PM CDT Height 179.1 cm (5' 10.51) 04/15/2024 2:16 PM C DT Body Mass Index 38.13 04/15/2024 2:16 PM CDT Plan of Treatment Upcoming Encounters Date Type Department Care Team (Latest Contact Info) Description 05/08/2024 4:00 PM CDT Office Visit Department of Family Medicine, [facility], in [address] [phone] Claire Jimenez MPAS, P.Le.-C., P.A. [address] [place] [phone] 05/10/2024 11:30 AM CDT Comprehensive Visit Department of Physical Medicine and Rehabilitation in [address] [phone] Claire Jimenez MPAS, P.A.-C., P.A. [address] [place] [phone] Micaela Monae P.T. [address] [place] [phone] 07/10/2024 9:30 AM MANAGER BEHAVIORAL Appointment Department of Cardiovascular Diseases in [address] [place] [phone] TonyClaire AMANDA Shafer, P.A.-C., P.A. [address] [place] [phone] Medical Devices Implanted Type Area Cake Knocker Device Identifier Shelf Expiration Date Model / Serial / Lot Hardware E.G. Pins/Screws/ Rods Hardware e.g. pins/screws /rods Right: Hip Marker Tissue Biomarc Kv 1x5 - [id number] Implanted:Qt y: 4 on 02/09/2023 by Mayra Rodriguez M.D. at [facility] Imaging Marker Circumferen tial: Prostate [facility] [id number] 07/14/2027 [id number] / / [id number] Stnt Uret Ps Imj W/O Gw 7fx26 - [id number] Implanted:Qt y: 1 on 02/09/2024 by Sola Perez M.D., M.S. at [facility] Ureteral Stent Right: Ureter Coloplast [id number] 06/27/2025 [id number] / [id number] Explanted Type Area Cake Knocker Device Identifier Shelf Expiration Date Model / Serial / Lot Stnt Uret Inl 6fx26 - [id number] Implanted:Qty : 1 on 11/14/2022 by Sylvia Toscano D.O. at [facility] Explanted:Qty : 1 on 02/21/2023 by Sarah Hernandez M.D. at [facility] Ureteral Stent Right: Ureter [employer].Bard [id number] 04/19/2027 [id number] / / [id number] Stnt Uret Ps Imj W/O Gw 6fx26 - [id number] Implanted:Qty : 1 on 02/21/2023 by Sarah [facility] M.D. at [facility] Explanted:Qty : 1 on 09/07/2023 by Sia Duque M.D. at [facility] Ureteral Stent Right: Ureter Coloplast [id number] 09/28/2024 [facility] / / [id number] Stnt Uret Psh Imj W/O Gw 6fx26 - [id number] Implanted:Qty : 1 on 09/07/2023 by Sia Duque M.D. at [facility] Explanted:Qty : 1 on 02/09/2024 by Sola Perez M.D., M.S. at [facility] Post/[facility] Ureteral Stent Right: Ureter Coloplast [id number] 10/05/2024 [facility] / / [id number] Procedures Procedure Name Priority Date/Time Associated Diagnosis Comments NT-PRO B-TYPE NATRIURETIC PEPTIDE (BNP), S Routine 04/15/2024 4:33 PM CDT Preoperative Exam HEMOGLOBIN A1C, B Routine 04/15/2024 4:3 3 PM CDT Screening Examination Diabetes Mellitus LIPID PANEL, S Routine 04/15/2024 4:33 PM CDT Screening Lipid Encounter For Screening For Cardiovascular Disorders BASIC METABOLIC PANEL, S/P Routine 04/15/2024 4:33 PM CDT Preoperative Exam CBC WITH DIFFERENTIAL, B Routine 04/15/2024 4:33 PM CDT Preoperative Exam ECG Routine 04/15/2024 4:28 PM CDT Preoperative Exam PROSTATE-SPECIFIC AG (PSA) DIAGNOSTIC, S Routine 03/01/2024 9:17 AM CDT Primary Malignant Neoplasm Of Prostate (HCC) [place] FLUORO LESS THAN 1 HOUR RAD - Routine (most inpatients and all outpatients) 02/09/2024 3:21 PM CDT RETROGRADE PYELOGRAM 02/09/2024 1:45 PM CDT 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 SURGERY IMAGE EXAM Routine 02/09/2024 1: 25 PM CDT COLONOSCOPY 07/21/2022 11:07 AM MANAGER BEHAVIORAL from Last 3 Months or Most Recently Relevant to Health Maintenance Results * (ABNORMAL) Lipid Panel (04/15/2024 4:33 PM CDT) Triglycerides 333(H) mg/dL 04/15/2024 5:00 PM CDT [facility] Comment: ----REFERENCE VALUE---- Normal: <150 mg/dL Borderline High: 150-199 mg/dL High: 200-499 mg/dL Very High: > or =500 mg/dL Cholesterol, Total 233(H) mg/dL 2023 5:00 PM CDT [facility] Comment: ----REFERENCE VALUE---- Desirable: < 200 mg/dL Borderline High: 200 - 239 mg/dL High: > or = 240 mg/dL Cholesterol, LDL, Calculated 136(H) mg/dL 04/15/2024 5:00 PM CDT [facility] Comment: ----REFERENCE VALUE---- Desirable: <100 mg/dL Above [...] Claire PATEL P.A.-C., P.A. LAB BLOOD ADD-ON Performing Organization Address [facility]/ZIP Co de Phone Number [facility] [address] [address], [facility] [place] [address] * NT-Pro B-Type Natriuretic Peptide (BNP) (04/15/2024 [...] Claire PATEL P.A.-C., P.A. LAB BLOOD ADD-ON Performing Organization Address City/[facility]/ZIP Co de Phone Number [facility] [address] [address], [facility] [place] [address] * (ABNORMAL) CBC with Differential, Blood (04/15/2024 [...] Claire PATEL, P.A.-C., P.A. LAB BLOOD ADD-ON [facility] [address] [place], [place] [address], [facility] in [place] [address], [place] [phone] * (ABNORMAL) Hemoglobin A1c (04/15/2024 4:33 PM CDT) Hemoglobin A1c, B 6.0(H) 4.2 - 5.6 % 04/15/2024 5:01 PM CDT [facility] Comment: Hemoglobin A1c values of 5.7-6.4 percent indicate an increased risk for developing diabetes mellitus. In diabetic patients, HbA1c goals should be discussed with healthcare provider. Blood (Blood, Venous) 04/15/2024 4:33 PM CDT 04/15/2024 4:36 PM CDT Claire Hollis Tony PATEL, P.A.-C., P.A. LAB BLOOD ADD-ON [facility] [address] [place] [address], [facility] in [place] [address] [facility] [place] [address] * Basic Metabolic Panel (04/15/2024 4:33 PM [...] PM CDT 04/15/2024 4:36 PM CDT Claire Shafer Tony PATEL P.A.-C., P.A. LAB BLOOD ADD-ON Performing Organization Address City/[facility] Co de Phone Number [facility] [address] [place] [address], [facility] in [place] [address] [place] [address] * ECG 12 Lead (04/15/2024 4:28 PM CDT) Ventricular Rate ECG/Min [address] Interval 198 ms MUSE QRSD Interval 82 ms MUSE QT Interval 388 ms MUSE QTC Interval 453 ms MUSE P Davis 69 degrees MUSE R Davis 31 degrees MUSE T Wave Davis 69 degrees MUSE 04/15/2024 4:28 PM CDT [...] ECGs available Reviewed by DONTE Fink Claire Hollis Tony PATEL P.A.-C., P.A. ECG ORDERABLES Performing Organization Address City/[facility] Co de Phone Number MUSE NA * PSA (Prostate-Specific Antigen), Diagnostic (03/01/2024 9:17 AM CDT) Prostate-Specific Ag <0.10 <=6.5 ng/mL 03/01/2024 9:59 AM CDT [facility] Comment: ----ADDITIONAL INFORMATION---- The testing method is an electrochemiluminescence assay manufactured by [employer] and performed on the Modular or Tacos system. Values obtained with different assay methods or kits may be different and cannot be used interchangeably. Test results cannot be interpreted as absolute evidence for the presence or absence of malignant disease. Blood (Blood, Venous) 03/01/2024 9:17 AM CDT 03/01/2024 9:27 AM CDT Michael Kingsley APRN, C.N.P., D.N.P. LAB B LOOD ADD-ON Performing Organization Address [facility] de Phone Number [facility] [address] [place] [address], [facility] in [place] [address] [place] [phone] * [place] Fluoro Less Than 1 Hour (02/09/2024 3:21 PM CDT) Narrative [id number] - 02/09/2024 3:22 PM CDT This exam does not require a radiologist review or interpretation. Please refer to the patient's medical record on this date for clinical details. Nanda Fu P.A.-C. IMG FLUOROSCOPY PROCEDURES Performing Organization Address [facility] de Phone Number [phone] NA * BLADDER-Surgery Image Exam (02/09/2024 1:25 PM CDT) 02/09/2024 1:21 PM CDT Narrative IIMS - 02/09/2024 2:48 PM CDT This order has been created and auto-finalized to support the import of images acquired without order. The clinical documentation to support these images can be found on the encounter that produced images. Provider Not In System IMG NON RAD IMAGI NG PROCEDURES Performing Organization Address [facility] de Phone Number IIMS NA * COLONOSCOPY (07/21/2022 11:07 AM MANAGER BEHAVIORAL) Narrative Procedure Note Jass Macias M.D. - 07/21/2022 11:07 AM CST [facility] - Organ GI Patient Name: Breezy Paz Procedure Date: 07/21/2022 11:07 AM Date of : 1955 Age: 67 Gender: Male Procedure: Colonoscopy Providers: Jass Macias MD, Jose Rafael Wiseman (Ordering Provider) Referring Provider: Jose Rafael Wiseman Pre-op Diagnoses: Screening for colorectal malignant neoplasm Post-op Diagnoses: - Two 2 to 3 mm polyps in the descending colon, removed with a cold snare. Resected and retrieved. - Diverticulosis in the sigmoid colon. - The examination was otherwise normal on direct and retroflexionviews. Recommendation: - Repeat colonoscopy in 5 years because the bowel preparation was suboptimal and for surveillance. - Need additional prep. Findings: The perianal and digital rectal examinations were normal. Two sessile polyps were found in the descending colon. The polypswere 2 to 3 mm in size. These polyps were removed with a cold snare.Resection and retrieval were complete. Multiple small-mouthed diverticula were found in the sigmoid colon. The exam was otherwise without abnormality on direct and retroflexion views. Medicines: Monitored Anesthesia Care Estimated Blood Loss: Estimated blood loss: none. Complications: No immediate complications. Procedure Details: The patient was seen, evaluated, and history reviewed. Airway and heart and lung exams were performed and were satisfactory for plannedsedation care. The risks, benefits and alternatives for the procedure and sedation were discussed andinformed consent was obtained. A procedural pause was conducted in the presence of assisting personnelto verify the correct patient identity and procedureto be performed. Throughout the procedure, the patient's blood pressure, pulse, and oxygen saturations were monitored continuously. The Colonoscope was introduced under directvision through the anus and advanced to the ileocecal valve. The colonoscopy was performed without difficulty. The patient tolerated the procedure well. The quality of the bowel preparation was evaluated using the BBPS (Lamar BowelPreparation Scale) with scores of: Right Colon = 2 (minoramount of residual staining, small fragments of stool and/or opaque liquid, but mucosa seen well), Transverse Colon = 2 (minor amount of residual staining, small fragments of stool and/or opaque liquid, but mucosa seen well) and Left Colon = 2 (minor amount of residual staining, smallfragments of stool and/or opaque liquid, but mucosa seen well). The total BBPS score equals 6. The qualityof the bowel preparation was fair. Sedation: FLACO Macias MD 07/21/2022 11:09:11 AM This report has been signed electronically. Number of Addenda: 0 Note Initiated On: 07/21/2022 11:07 AM Jose Rafael PATEL, P.A.-C., P.A. GI PROCEDURE ORDERABLES from Last 3 Months or Most Recently Relevant to Health Maintenance Advance Directives For more information, please contact: [phone] Documents on File Type Date Recorded Patient Nailing Machine Feeder Expl anation Advance Directives 03/13/2023 1:42 PM Abel HUDSONOA/ADVOCATE/AGENT/ COMPUTER ENGINEERING TECHNICIAN/SURROG ATE * Full Code (Latest Code Status on File) Date Activated Date Inactivated Comments 11/14/2022 7:04 AM 11/14/2022 1:06 PM Question Answer Comments Full Code: Not Discussed Due to: Patient not available * Full Code Date Activated Date Inactivated Comments 07/21/2022 11:42 AM 07/21/2022 1:46 PM Question Answer Comments Full Code: Discussed Healthcare Agents on File Name Relationship Healthcare Agent Relationship Communication Abel Gilmore Health Care Agent [email or web address] [email or web address] First Alternate Health Care Agent Care Teams Animal Care Supervisor Relationship Specialty Start Date End Date Claire Jimenez MPAS, PDrea.AdelaidaC., P.A. [address] [place] [phone] PCP - General Family Medicine 04/01/24
--- OUTSIDE RECORDS SUMMARY | 2024-04-30 07:04 | XMS_ITS | Encounter Summary ---
Author Organization [facility] Address [address] [place] [address] Care Team Providers Care Security Operations Center Analyst Name Role Phone Claire Jimenez P.A.-C., P.A. Primary Care Provider Reason for Referral * Outpatient (Routine) - Authorized Specialty Diagnoses / Procedures Referred By Lucinda t Referred To Contact Cardiovascular Diseases Diagnoses Murmur Heart Claire Jimenez MPAS, P.A.-C., P.A. [address] [place] [address] [facility] [address] [place] [address] Referral ID Status Reason Start Date Expiration Date Visits Requested Visits Authorized [id number] Authorized Patient Preference 04/18/2024 10/18/2025 1 1 Reason for Visit * Reason Onset Date Comments Order Request 04/16/2024 Encounter Details Date Type Department Care Team (Late st Contact Info) Description 04/16/2024 Clinical Communication Department of Family Medicine, [facility], in [address] [place] [phone] Claire Jimenez MPAS, P.A.-C., P.A. [address] [facility] [place] [phone] Order Request Social History Tobacco Use Types Packs/Day Years Used Date Smoking Tobacco: Never Smokeless Tobacco: Never Alcohol Use Standard Drinks/Week Comments Yes 2 (1 standard drink = 0.6 oz pur e alcohol) [facility] Utilities Answer Date Recorded In the past [...] often do you attend chur ch or caodaism services? More than 4 times per year 10/27/2022 Do you belong to any clubs o r organizations such as rastafari groups, unions, fraternal or athletic groups, or [...] Answer Date Recorded PHQ-2 Score 2 04/09/2024 [facility] of Occupat ional Health - Occupational Stress [...] encounter Miscellaneous Notes * Telephone Encounter - Sylvia Montiel L.P.N. - 04/18/2024 6:32 PM CDT Routed echocardiogram referral to number provided. No current orders for US. * Telephone Encounter - Heydi Walker L.P.NDavid - 04/18/2024 11:01 AM CDT Routed to fax number given. documented in this encounter Plan of Treatment Upcoming Encounters Date Type Department Care Team (Latest Contact Info) Description 05/08/2024 4:00 PM CDT Office Visit Department of Family Medicine, [facility], in [address] [phone] Claire Jimenez MPAS, P.A.-C., P.A. [address] [place] [phone] 05/10/2024 11:30 AM CDT Comprehensive Visit Department of Physical Medicine and Rehabilitation in [address] [phone] Claire Jimenez MPAS, P.A.-C., P.A. [address] [place] [phone] Micaela Monae P.T. [address] [place] [phone] 07/10/2024 9:30 AM SHIPPER RECEIVER Appointment Department of Cardiovascular Diseases in [place], [place] [address] [place] [phone] Claire Jimenez MPAS, P.A.-C., P.A. [address] [place] [phone] documented as of this encounter Visit Diagnoses Diagnosis Murmur Heart- Primary documented in this encounter Care Teams Security Operations Center Analyst Relationship Specialty Start Date End Date Claire Jimenez MPAS, P.A.-C., P.A. [address] [place] [phone] PCP - General Family Medicine 04/01/24 documented as of this encounter
--- OUTSIDE RECORDS SUMMARY | 2024-04-30 07:04 | XMS_ITS | Encounter Summary ---
Author Organization [facility] Address [address] [place] [address] Care Team Providers Care Trench Shovel Operator Name Role Phone Claire Jimenez P.A.-C., P.A. Primary Care Provider Reason for Referral * Outpatient (Routine) - Authorized Specialty Diagnoses / Procedures Referred By Contac t Referred To Contact Claire Jimenez MPAS, P.A.-C., P.A. [address] [place] [address] [facility] Region Referral ID Status Reason Start Date Expiration Date V isits Requested Visits Authorized [id number] Authorized 04/09/2024 10/09/2025 1 1 Scheduling Instructions Nurse AWV Do not schedule prior to due date to ensure insurance coverage Visit: Medicare Annual Wellness Never done. Encounter Details Date Type Department Care Team (Late st Contact Info) Description 04/09/2024 Orders Only [facility] Claire Jimenez MPAS, P.A.-C., P.A. [address] [place] [phone] Social History Tobacco Use Types Packs/Day Years Used Date Smoking Tobacco: Never Smokeless Tobacco: Never Alcohol Use Standard Drinks/Week Comments Yes 2 (1 standard drink = 0.6 oz pur e alcohol) [facility] Utilities Answer Date Recorded In the past [...] How often do you attend chur or mormonism services? More than 4 times per year 10/27/2022 Do you belong to any clubs o r organizations such as hindu groups, unions, fraternal or athletic groups, or [...] [facility] [place] [facility] - Occupational Stress Questionnaire Answer Date Recorded [...] Department of Family Medicine, [facility], in [address] [phone] Claire Jimenez MPAS P.A.-C., P.A. [address] [place] [phone] 05/10/2024 11:30 AM CDT Comprehensive Visit Department of Physical Medicine and Rehabilitation in [address] [phone] Claire Jimenez MPAS, P.A.-C., P.A. [address] [place] [phone] Micaela Monae P.T. [address] [place] [phone] 07/10/2024 9:30 AM APPLICATION PERFORMANCE ENGINEER Appointment Department of Cardiovascular Diseases in [address] [phone] Claire Jimenez MPAS P.A.-C., P.A. [address] [place] [phone] Scheduled Referrals Name Type Priority Associated Diagnoses Orde r Schedule Primary Care nurse visit (clinic) - [facility] Region; Medicare Annual Wellness Outpatient Referral Routine Expected: 05/07/2024, Expires: 10/06/2024 documented as of this encounter Visit Diagnoses Not on filedocumented in this encounter Care Teams Trench Shovel Operator Relationship Specialty Start Date End Date Claire Jimenez MPAS, PIzzy., P.A. [address] [place] [phone] PCP - General Family Medicine 04/01/24 documented as of this encounter
--- OUTSIDE RECORDS SUMMARY | 2024-04-30 07:04 | XMS_ITS | Encounter Summary ---
Author Organization [facility] Address [address] [place] [address] Care Team Providers Care Health Information Assistant Name Role Phone Claire Jimenez P.A.-C., P.A. Primary Care Provider Reason for Referral * Outpatient (Routine) - Closed Specialty Diagnoses / Procedures Referred By Lucinda franco Referred To Contact Diagnoses Preoperative Exam Procedures ECG 12 Lead Claire Jimenez MPAS, P.A.-C., P.A. [address] [place] [phone] [facility] Region Referral ID Status Reason Start Date Expiration Date Visits Re quested Visits Authorized [id number] Closed 04/15/2024 04/15/2025 1 1 Reason for Visit * Reason Comments Pre-op Exam Hip surgery * Appointment Request (Routine) - Closed Specialty Diagnoses / Procedures Referred By Lucinda franco Referred To Contact Family Medicine Referral ID Status Reason Start Date Expiration Date Visits Re quested Visits Authorized [id number] Closed 04/01/2024 04/01/2025 1 1 Encounter Details Date Type Department Care Team (Latest Contact Info) Description 04/15/2024 2:15 PM CDT Office Visit Department of Family Medicine, [facility], in [place], [place] [address] [place] [phone] Claire Jimenez MPAS, PDrea.-C., P.A. [address] [place] [phone] Preoperative Exam (Primary Dx); Primary Osteoarthritis Hip Right; Apnea Sleep Obstructive; Murmur Heart; Primary Malignant Neoplasm Of Prostate (HCC); Hyperlipidemia; Encounter For Screening For Cardiovascular Disorders; PreDiabetes; Stenosis Aortic Valve Acquired Discharge Disposition: Home or Self Care Social History Tobacco Use Types Packs/Day Years Used Date Smoking Tobacco: Never Smokeless Tobacco: Never Alcohol Use Standard Drinks/Week Comments Yes 2 (1 standard drink = 0.6 oz pur e alcohol) [facility] [employer] Answer Date Recorded In the past 12 months has [employer], oil, or water [employer] threatened to shut off services in your [...] week 10/27/2022 How often do you attend [facility] or orthodox services? More than 4 times per year 10/27/2022 Do you belong to any clubs o r organizations such as restorationism groups, unions, fraternal or athletic groups, or [...] Answer Date Recorded PHQ-2 Score 2 04/09/2024 [facility] of Occupat ional [facility] - Occupational Stress Questionnaire Answer [...] your living situation today? I have a [facility] to live 02/03/2024 Education [...] PM CDT documented as of this encounter Last Filed Vital Signs Vital Sign Reading Time Taken Comments Blood Pressure 147/84 04/15/2024 2:25 PM CDT Pulse 78 04/15/2024 2:25 PM CDT Temperature 36.4 ??C (97.5 ??F) 04/15/2024 2:16 PM CD T Respiratory Rate - - Oxygen Saturation - - Inhaled Oxygen Concentration - - Weight 122 kg (269 lb 10 oz) 04/15/2024 2:16 PM CDT Height 179.1 cm (5' 10.51) 04/15/2024 2:16 PM C DT Body Mass Index 38.13 04/15/2024 2:16 PM CDT documented in this encounter Patient Instructions * Patient Instructions* Claire Jimenez P.A.-Bouchra., P.A. - 04/15/2024 2:15 PM CDT BLOOD WORK TODAY EKG AT RADIOLOGY TODAY SCHEDULE HEART ULTRASOUND LOOK INTO CPAP - CORNER HOME MEDICAL MEDICATIONS: - CAN TAKE TAMSULOSIN DAY OF PROCEDURE IF TAKING ASPIRIN/NSAIDs: Stop aspirin/NSAIDs (ibuprofen/ aleve) 1 week before procedure and resume 1 day after the procedure unless instructed otherwise. IF TAKING SUPPLEMENTS: Stop all supplements 1 week prior to procedure and may resume 1 day afterthe procedure unless instructed otherwise. VACCINES: - DUE FOR TETANUS SHOT AT A PHARMACY Thank you for allowing me to participate in your care. Please take medication as prescribed. Returnto the clinic/ER if symptoms worsen or fail to improve; or if they change. Please complete your health maintenance, or discuss this with your primary care provider and receive your annual exam if notdone so already! Please call the clinic at [phone] or send portal message if future questions or concerns arise. Claire Jimenez P.A.-C., P.A. [address] [place] [address] [facility] DR. YONI LUTZ MD [address] [place] [address] documented in this encounter Progress Notes * Claire Jimenez MPAS, P.A.-C., P.A. - 04/15/2024 2:15 PM CDT SUBJECTIVE Breezy Paz [phone] DATE OF SURGERY: 04/30/2024 Surgeon: Dr. Yoni Lutz MD [facility] [place], [place] DATE OF EXAM: 04/15/24 TYPE OF SURGERY: Right Hip Total Arthroplasty CHIEF COMPLAINT/REASON FOR VISIT Preoperative consultation. HISTORY OF PRESENT ILLNESS Breezy Paz is a pleasant 69 y.o. male, with a history of right hip osteoarthritis, sleepapnea, hx of malignant neoplasm of prostate, hydronephrosis with ureteral stricture/stent, and Goutthat presents to the clinic today for comprehensive preoperative exam. Patient is a Jehovah Witness and signed advanced directive concerning blood products REVIEW OF SYSTEMS There is no history of difficulty with anesthesia, bleeding tendencies, blood clots, congestive heart failure, heart valve disease, heart arrhythmias, chest pain or dyspnea. The patient is able to climb a flight of stairs without any chest pain, dyspnea or extreme fatigue. Patient denies any recentillness. No fevers or signs of upper respiratory tract infection. Review of systems is otherwise negative with the exceptions of the positives/negatives listed above. MEDICAL HISTORY Patient Active Problem List Diagnosis Screening Cancer Colon Primary Malignant Neoplasm Of Prostate (HCC) Hydronephrosis With Ureteral Stricture Not Elsewhere Classified Obstruction Ureter Apnea Sleep Obstructive Gout Osteoarthritis SURGICAL HISTORY Past Surgical History: Procedure Laterality Date BIOPSY TRANSPERINEAL PROSTATE N/A 11/14/2022 Procedure: BIOPSY TRANSPERINEAL PROSTATE.; Surgeon: Sylvia Toscano D.O.; Location: [facility] OR COLONOSCOPY N/A 07/21/2022 Polyps. Procedure: COLONOSCOPY-a; Surgeon: Jass Macias M.D.; Location: [facility] CYSTOSCOPY RIGID N/A 11/14/2022 Procedure: CYSTOSCOPY RIGID.; Surgeon: Sylvia Toscano D.O.; Location: [facility] OR CYSTOURETHROSCOPY WITH PLACEMENT URETERAL STENT Right 11/14/2022 Procedure: CYSTOURETHROSCOPY WITH PLACEMENT URETERAL STENT; Surgeon: Sylvia Toscano D.O.; Location: [facility] OR EXCHANGE URETERAL STENT Right 02/21/2023 Procedure: EXCHANGE URETERAL STENT; Surgeon: Sylvia Toscano D.O.; Location: [facility] OR EXCHANGE URETERAL STENT Right 09/07/2023 Procedure: EXCHANGE URETERAL STENT, Kim.; Surgeon: Michael Molina M.D.; Location: [facility] OR EXCHANGE URETERAL STENT Right 02/09/2024 Procedure: EXCHANGE URETERAL STENT; Surgeon: Sylvia Toscano D.O.; Location: [facility] OR OTHER SURGICAL HISTORY 2007 Plate placed on right hip RETROGRADE PYELOGRAM Right 11/14/2022 Procedure: RETROGRADE PYELOGRAM.; Surgeon: Sylvia Toscano D.O.; Location: [facility] OR RETROGRADE PYELOGRAM Right 09/07/2023 Procedure: RETROGRADE PYELOGRAM; Surgeon: Michael Molina M.D.; Location: [facility] OR RETROGRADE PYELOGRAM Right 02/09/2024 Procedure: RETROGRADE PYELOGRAM; Surgeon: Sylvia Toscano D.O.; Location: [facility] OR ALLERGIES/CONTRAINDICATIONS No Known Allergies CURRENT MEDICATIONS Current Outpatient Medications on File Prior to Visit Medication Sig Dispense Refill calcium carbonate 650 mg calcium (1,625 mg) tablet Take 600 mg by mouth daily. cholecalciferol, vitamin D3, (cholecalciferol) 25 mcg (1,000 Unit) tablet Take 25 mcg by mouth daily. tamsulosin (FLOMAX) 0.4 mg 24 hr capsule Take 1 capsule (0.4 mg total) by mouth daily as needed (stent pain). 30 capsule 6 UNABLE TO FIND Take 1 each by mouth daily. Med Name: RAMOS REYNA [DISCONTINUED] albuterol 90 mcg/actuation inhaler Inhale 2 puffs every 4 (four) hours as needed forwheezing. 18 g 0 [DISCONTINUED] tamsulosin (FLOMAX) 0.4 mg 24 hr capsule take 1 capsule by mouth every day 90 capsule 2 [DISCONTINUED] trospium (SANCTURA) 20 mg tablet Take 1 tablet (20 mg total) by mouth 2 (two) times a day as needed (Bladder spasms). 60 tablet 6 No current facility-administered medications on file prior to visit. SOCIAL HISTORY Social History Social History Narrative Not on file FAMILY HISTORY No family history of difficulty with anesthesia, bleeding tendencies or blood clotting disorders. OBJECTIVE VITAL SIGNS Vitals: 04/15/24 1425 BP: 147/84 Pulse: 78 Temp: Stop Bang (WILLA) Total Score: PHYSICAL EXAMINATION General: Awake, alert and oriented x3, comfortable. Affect normal. HEENT: Pupils equal, round, reactive to light. Extraocular movements intact. Conjunctivae not injected. External auditory canals are clear. Nasopharynx without erythema. No tonsillar hypertrophy or exudate. Mucous membranes are moist. Dentition and gums intact. Neck supple without lymphadenopathy. M allampati score IV Heart: Regular rate and rhythm. Systolic murmur heard over the right sternal border Lungs: Clear to auscultation bilaterally. Extremities: Warm and well perfused. Mild edema bilateral extremities without pitting. Skin: No erythema or rashes. No open sores or ulcers. DIAGNOSTICS Recent Results (from the past 72 hour(s)) CBC with Differential, Blood Collection Time: 04/15/24 4:33 PM Result Value Hemoglobin 14.5 Hematocrit 43.1 Erythrocytes 4.89 MCV 88.1 RBC Distrib Width 13.0 Platelet Count 227 Leukocytes 5.4 Neutrophils 3.75 Lymphocytes 0.78 (L) Monocytes 0.65 Eosinophils 0.18 Basophils 0.04 Basic Metabolic Panel Collection Time: 04/15/24 4:33 PM Result Value Potassium, P 4.5 Sodium, P 136 Chloride, P 100 Bicarbonate, P 25 Anion Gap, P 11 BUN (Blood Urea Nitrogen), P 18 Creatinine 1.16 Estimated GFR (eGFR) 68 Calcium, Total, P 10.1 Glucose, P 98 Lipid Panel Collection Time: 04/15/24 4:33 PM Result Value Triglycerides 333 (H) Cholesterol, Total 233 (H) Cholesterol, LDL, Calculated 136 (H) Cholesterol, HDL 37 (L) Cholesterol, Non-HDL, Calculated 196 (H) Fasting (8 HR or more) No Hemoglobin A1c Collection Time: 04/15/24 4:33 PM Result Value Hemoglobin A1c, B 6.0 (H) NT-Pro B-Type Natriuretic Peptide (BNP) Collection Time: 04/15/24 4:33 PM Result Value NT-Pro BNP 89 ASSESSMENT / PLAN IMPRESSION/REPORT/PLAN: #1 Preoperative Exam - CBC with Differential, Blood; Future; Expected date: 04/15/2024 - Basic Metabolic Panel; Future; Expected date: 04/15/2024 - ECG 12 Lead; Future; Expected date: 04/15/2024 - NT-Pro B-Type Natriuretic Peptide (BNP); Future; Expected date: 04/15/2024 #2 Primary Osteoarthritis Hip Right - CBC, BMP, Pro-BNP, and EKG normal - new systolic heart murmur heard over right sternal border - cannot approve patient for planned surgery until we obtain echocardiogram of new heart murmur heard on exam - my team will reach out to surgeon for additional advice, pending surgeon's advice if he still wants to proceed with planned hip replacement given new heart murmur heard on exam Avoid NSAIDS and supplements 1 week prior to surgery Can take Flomax day of surgery CASANDRA form completed to contact surgeon's team concerning pre-op exam Patient is a Jehovah Witness and signed advanced directive concerning blood products #3 Apnea Sleep Obstructive - DME Medical Justification: CPAP - DME CPAP; DME Order, DME No Print - patient notes his CPAP stopped working November 2023 and has not been using it the last several months - new prescription ordered and faxed to [facility] in [place] - sleep study on 05/05/2004 showed mild sleep apnea, sleep study document in document viewer to review #4 Murmur Heart - Echo Transthoracic (TTE); Future; Expected date: 04/15/2024 -new murmur heard over right sternal border - believe aortic stenosis - I recommend heart US before patient can be cleared for surgery - my team will reach out to surgeon for additional advice, pending surgeon's advice if he still wants to proceed with planned hip replacement given new heart murmur heard on exam #5 Primary Malignant Neoplasm Of Prostate (HCC) -continues to follow with urology with stent replacement every 6 months #6 Hyperlipidemia #7 Encounter For Screening For Cardiovascular Disorders - LDL 136 - recommend starting on statin - recommend start stain Crestor 10mg and recheck labs of lipid/ hepatic function in 3 months The 10-year ASCVD risk score (Emma GUTIÉRREZ, et al., 2019) is: 27.3% Values used to calculate the score: Age: 69 years Sex: Male Is Non- : No Diabetic: No Tobacco smoker: No Systolic Blood Pressure: 147 mmHg Is BP treated: No HDL Cholesterol: 37 mg/dL Total Cholesterol: 233 mg/dL #8 Prediabetes - Hemoglobin A1c; Future; Expected date: 04/15/2024 - prediabetes with hemoglobin A1C at 6.0% - lifestyle changes and recheck in 1 year Other orders - Lipid Panel; Future; Expected date: 04/15/2024 *Addendum: - Patient completed echocardiogram due to new diagnosis of heart murmur at [facility] (results available on document viewer for review) - EF of 52% - It noted mild aortic stenosis and they recommend repeat echo in 3 to 5 years - patient is cleared for planned surgery due to above echocardiogram results and based on my physical evaluation at patient's appointment Patient's questions were answered and they voiced understanding of the diagnoses and treatment plan. Patient/caregiver was instructed to contact the clinic if symptoms fail to improve as discussed, worsen, or change. Patient/caregiver was in agreement with the care plan and all questions were answered. Patient left in no acute distress. Patient informed to call the clinic or send portal message if future questions or concerns arise. Appreciate Breezy Paz letting me be a part of their care today. Claire Jimenez P.A.-C., P.A. documented in this encounter Plan of Treatment Upcoming Encounters Date Type Department Care Team (Latest Contact Info) Description 05/08/2024 4:00 PM CDT Office Visit Department of Family Medicine, [facility], in [address] [place] [phone] Claire Jimenez MPAS, P.A.-C., P.A. [address] [place] [phone] 05/10/2024 11:30 AM CDT Comprehensive Visit Department of Physical Medicine and Rehabilitation in [address] [place] [phone] Claire Jimenez MPAS, P.Le.-C., P.A. [address] [place] [phone] Micaela Monae P.T. [address] [place] [phone] 07/10/2024 9:30 AM PLACEMENT OFFICER Appointment Department of Cardiovascular Diseases in [address] [place] [phone] Claire Jimenez MPAS, P.A.-C., P.A. [address] [place] [phone] Scheduled Orders Name Type Priority Associated Diagnoses Orde r Schedule Lipid Panel Lab Routine Hyperlipidemia Expected: 07/17/2024 (Approximate), Expires: 04/16/2025 Hepatic Function Panel Lab Routine Hyperlipidemia Expected: 07/17/2024 (Approximate), Expires: 04/16/2025 documented as of this encounter Results * NT-Pro B-Type Natriuretic [...] 4:33 PM CDT 04/15/2024 4:36 PM CDT Joslyn Henry.Hebert., P.A. LAB BLOOD ADD-ON Performing Organization Address [facility] de Phone Number [facility] [address] [place] [id number], [facility] in [address] [phone] * (ABNORMAL) Hemoglobin A1c (04/15/2024 4:33 PM CDT) Hemoglobin A1c, B 6.0(H) 4.2 - 5.6 % 04/15/2024 5:01 PM CDT RDW[facility] Comment: Hemoglobin A1c values of 5.7-6.4 percent indicate an increased risk for developing diabetes mellitus. In diabetic patients, HbA1c goals should be discussed with healthcare provider. Blood (Blood, Venous) 04/15/2024 4:33 PM CDT 04/15/2024 4:36 PM CDT Joslyn Henry.AdelaidaC., P.A. LAB BLOOD ADD-ON Performing Organization Address [facility] Co de Phone Number [facility] [address] [place] [phone], [facility] in [address] [phone] * (ABNORMAL) Lipid Panel (04/15/2024 4:33 PM [...] Claire PATEL, P.A.-C., P.A. LAB BLOOD ADD-ON [facility] [address] [place] [address], [facility] in [place] [address] [place] [address] * Basic Metabolic Panel (04/15/2024 4:33 PM [...] Claire PATEL, P.A.-C., P.A. LAB BLOOD ADD-ON [facility] [address] [place] [address], [facility] in [place] [address] [phone] * (ABNORMAL) CBC with Differential, Blood (04/15/2024 [...] Claire PATEL, P.A.-C., P.A. LAB BLOOD ADD-ON [facility] [address] [address], [facility] in [place] [address] [phone] * ECG 12 Lead (04/15/2024 4:28 PM CDT) Ventricular Rate ECG/Min 82 BPM MUSE VT Interval 198 ms MUSE QRSD Interval 82 ms MUSE QT Interval 388 ms MUSE QTC Interval 453 ms MUSE P [place] 69 degrees MUSE R [place] 31 degrees MUSE T Wave [place] 69 degrees MUSE 04/15/2024 4:28 PM CDT [...] in this encounter Visit Diagnoses Diagnosis Preoperative Exam- Primary Primary Osteoarthritis Hip Right Apnea Sleep Obstructive Murmur Heart Primary Malignant Neoplasm Of Prostate (HCC) Hyperlipidemia Encounter For Screening For Cardiovascular Disorders PreDiabetes Stenosis Aortic Valve Acquired Preoperative Exam documented in this encounter Care Teams Health Information Assistant Relationship Specialty Start Date End Date Claire Jimenez MPAS, P.A.-C., P.A. [address] [place] [phone] PCP - General Family Medicine 04/01/24 documented as of this encounter
--- OUTSIDE RECORDS SUMMARY | 2024-04-30 07:04 | XMS_ITS | Clinical Summary ---
Author Organization [facility] Address [address] [place] [address] Care Team Providers Care Marketing Assistant Manager Name Role Phone Claire Jimenez, P.A.-C., P.A. Primary Care Provider Source Comments Patient records contain information from all sites at [facility]. For routine questions regarding patient records, call [phone] during business hours, M-F 8:00 AM - 5:00 PM Central Time. Record requests for emergency care only can be directed to [phone] at any time.[facility] Allergies No known active allergies Medications Medication Sig Dispensed Refills Start Date End Date Status cholecalciferol, vitamin D3, (cholecalciferol) 25 mcg (1,000 Unit) tablet Take 25 mcg by mouth daily. Active calcium carbonate 650 mg calcium (1,625 mg) tablet Take 600 mg by mouth daily. Active UNABLE TO FIND Take 1 each by mouth daily. Med Name: BEASLEY MARIBELL Active tamsulosin (FLOMAX) 0.4 mg 24 hr [...] (05/03/2022): Added automatically from request for surgery [id number] Resolved Problems Problem Noted Date Diagnosed Date Resolved Date Tumor Prostate 10/27/2022 12/12/2022 Overview (10/27/2022): Added automatically from request for surgery [id number] Encounters Date Type Department Care Team Description 04/29/2024 Clinical Communication Department of Family Medicine, [facility], in [place], [place] [address] [place] [phone] Claire Jimenez MPAS, P.A.-C., P.A. Communication 04/25/2024 Clinical Communication Department of [facility], [facility], [address] [place] [address] Claire Jimenez MPAS, P.A.-C., P.A. Results (ECG) 04/19/2024 Clinical Communication Department of [facility], [facility], in [address] [place] [address] Claire Jimenez MPAS, P.A.-C., P.A. 04/17/2024 Clinical Communication Department of [facility], [facility], [address] [place] [phone] Laura Segundo, RToshia. Follow-up Orders (Pre-op for Right Hip Total Arthroplasty) 04/16/2024 Clinical Communication Department of [facility], [facility], in [address] [place] [address] Claire Jimenez MPAS, P.A.-C., P.A. Order Request 04/15/2024 4:40 PM CDT - 04/15/2024 11:59 PM CDT Hospital Encounter Department of Radiology in [address] [place] [phone] Claire Jimenez MPAS, P.A.-C., P.A. Preoperative Exam Discharge Disposition: Home or Self Care 04/15/2024 4:25 PM CDT - 04/15/2024 4:39 PM CDT Hospital Encounter Department of Laboratory Medicine in [address] [place] [phone] Claire Jimenez MPAS, P.A.-C., P.A. Preoperative Exam; Screening Lipid; Encounter For Screening For Cardiovascular Disorders; Screening Examination Diabetes Mellitus Discharge Disposition: Home or Self Care 04/15/2024 2:15 PM CDT Office Visit Department of Family Medicine, [facility], in [address] [phone] Claire Jimenez MPAS, P.A.AdelaidaC., P.A. Preoperative Exam (Primary Dx); Primary Osteoarthritis Hip Right; Apnea Sleep Obstructive; Murmur Heart; Primary Malignant Neoplasm Of Prostate (HCC); Hyperlipidemia; Encounter For Screening For Cardiovascular Disorders; PreDiabetes; Stenosis Aortic Valve Acquired Discharge Disposition: Home or Self Care 04/09/2024 Orders Only [facility] Claire Jimenez MPAS PDrea.AdelaidaC., P.A. 03/24/2024 Orders Only Department of Radiation Oncology in [place], [place] [address] [place] [phone] Demetri Dick M.D. 03/04/2024 Orders Only Department of Radiation Oncology in [place], [place] [address] [place] [phone] Michael Kingsley APRN C.N.P., D.N.P. Primary Malignant Neoplasm Of Prostate (HCC) (Primary Dx) 03/04/2024 Orders Only Department of Radiation Oncology in [place], [place] [address] [place] [phone] Michael Kingsley APRN, C.N.P., D.N.P. Primary Malignant Neoplasm Of Prostate (HCC) (Primary Dx) 03/01/2024 9:12 AM CDT - 03/01/2024 11:59 PM CDT Hospital Encounter Department of Laboratory Medicine in [address] [phone] Michael Kingsley APRN, C.N.P., D.N.P. Primary Malignant Neoplasm Of Prostate (HCC) Discharge Disposition: Home or Self Care 02/29/2024 Orders Only Department of Radiation Oncology in [place], [place] [address] [place] [address] Michael Kingsley APRN, C.N.P., D.N.P. Primary Malignant Neoplasm Of Prostate (HCC) (Primary Dx) 02/27/2024 Clinical Communication Department of Radiation Oncology in [address] [phone] Michael Kingsley APRN, C.N.P., D.N.P. 02/12/2024 Orders Only Department of Urology in [address] [phone] Ashlee Fitzpatrick R.N. 02/09/2024 1:55 PM CDT Anesthesia Event Outpatient Procedure Center in [address] [phone] Niya Gastelum APRN, CRNA Dodd, Sarah E, M.D. 02/09/2024 1:25 PM CDT Ancillary Procedure Department of General Surgery 02/09/2024 1:01 PM CDT - 02/09/2024 2:04 PM CDT Surgery Outpatient Procedure Center in [address] [phone] Sylvia Toscano D.O. EXCHANGE URETERAL STENT 02/09/2024 12:20 PM CDT - 02/09/2024 4:32 PM CDT Hospital Encounter Outpatient Procedure Center in [address] [phone] Sylvia Toscano D.O. Discharge Disposition: Home or Self Care 02/08/2024 10:30 AM CDT Office Visit Department of Urology in [address] [phone] Nanda Fu P.A.-C. Obstruction Ureter (Primary Dx) 02/07/2024 12:15 PM CDT Clinical Communication Virtual Review in [address] [phone] Pre-visit Intake 01/30/2024 Clinical Communication Department of Urology in [address] [phone] Liz Ortez from Last 3 Months Immunizations Name Administration Dates Next Due Tdap 08/13/2012 Family History Medical History Relation Name Comments Coronary artery disease Father Marcin Diabetes Father Marcin Kidney disease Father Marcin Other cancer Father Marcin Bladder cancer Relation Name Status Comments Father Marcin Social History Tobacco Use Types Packs/Day Years Used Date Smoking Tobacco: Never Smokeless Tobacco: Never Alcohol Use Standard Drinks/Week Comments Yes 2 (1 standard drink = 0.6 oz pur e alcohol) [facility] Utilities Answer Date Recorded In the past 12 months has e [facility], [employer], oil, or water moziy threatened to shut off services in your [...] week 10/27/2022 How often do you attend [facility] or jehovah's witness services? More than 4 times per year 10/27/2022 Do you belong to any clubs o r organizations such as hinduism groups, unions, fraternal or athletic groups, or [...] Answer Date Recorded PHQ-2 Score 2 04/09/2024 [facility] - Occupational Stress Questionnaire Answer [...] your living situation today? I have a [facility] place to live 02/03/2024 Education Answer Date [...] CDT Office Visit Department of Family Medicine, [facility], in [address] [phone] Claire Jimenez MPAS, P.A.-C., P.A. [address] [place] [address] 05/10/2024 11:30 AM CDT Comprehensive Visit Department of Physical Medicine and Rehabilitation in [address] [phone] Claire Jimenez MPAS, P.A.-C., P.A. 1 [place] [address] Micaela Monae P.T. [address] [place] [phone] 07/10/2024 9:30 AM REINSURANCE CLAIM ANALYST Appointment Department of Cardiovascular Diseases in [place], [place] [address] [facility] [place] [address] Claire Jimenez MPAS, P.A.-C., P.A. [address] [facility] [place] [address] Health Maintenance Due Date Last Done Comments CT Colonography 1955 Cologuard 1955 Hepatitis C Screening 1955 Visit: Medicare Annual Wellness 1954 Pneumococcal vaccine (65+ years) (1 of 2 - PCV) 02/26/1960 Zoster Vaccines (1 of 2) 1973 DTaP,Tdap,and Td Vaccines (2 - Td or Tdap) 08/13/2022 08/13/2012 COVID-19 Vaccine ( - season) 2023 08/12/2021, 11/04/2020, 09/24/2020 Influenza Vaccine (#1) 2024 05/19/2021 Fasting Glucose for Diabetes Screening 04/15/2025 04/15/2024, 04/15/2024, 08/11/2023, Additional history exists Visit: Annual, age 65+ (or Medicare and <65) 04/15/2025 04/15/2024 Colonoscopy 07/21/2027 07/21/2022 Colorectal Cancer Surveillance 07/21/2027 Lipid (Cholesterol) Screening 04/15/2029 04/15/2024, 05/05/2022 Fall Risk Screen (Annual) Completed 02/09/2024 Depression Screening (Annual PHQ-2) Completed 04/15/2024, 04/09/2024 HPV Vaccines Aged Out No longer eligi ble based on patient's age to complete this topic Medical Devices Implanted Type Area Brace Maker Device Identifier Shelf Expiration Date Model / Serial / Lot Hardware E.G. Pins/Screws/ Rods Hardware e.g. pins/screws /rods Right: Hip Marker Tissue Biom[employer] Kv 1x5 - [id number] Implanted:Qt y: 4 on 02/09/2023 by Mayra Rodriguez M.D. at [facility] Imaging Marker Circumferen tial: [facility] [id number] 07/14/2027 [id number] / / [id number] Stnt Uret Psh Imj W/O Gw 7fx26 - [id number] Implanted:Qt y: 1 on 02/09/2024 by Sola Perez M.D., M.S. at [facility] Ureteral Stent Right: Ureter Coloplast [id number] 06/27/2025 [facility] / [id number] Explanted Type Area Brace Maker Device Identifier Shelf Expiration Date Model / Serial / Lot Stnt Uret Inl 6fx26 - [id number] Implanted:Qty : 1 on 11/14/2022 by Sylvia Toscano D.O. at [facility] Explanted:Qty : 1 on 02/21/2023 by Sarah Hernanedz M.D. at [facility] Ureteral Stent Right: Ureter [employer] [id number] 04/19/2027 [id number] / / [id number] Stnt Uret Psh Imj W/O Gw 6fx26 - [id number] Implanted:Qty : 1 on 02/21/2023 by Sarah Hernandez M.D. at [facility] Explanted:Qty : 1 on 09/07/2023 by Sia Duque M.D. at [facility] Ureteral Stent Right: Ureter Coloplast [id number] 09/28/2024 [facility] / / [id number] Stnt Uret Psh Imj W/O Gw 6fx26 - [id number] Implanted:Qty : 1 on 09/07/2023 by Sia Duque M.D. at [facility] Explanted:Qty : 1 on 02/09/2024 by Sola Perez M.D., M.S. at [facility] Ureteral Stent Right: Ureter Coloplast [id number] 10/05/2024 [facility] / / [id number] Procedures Procedure Name Priority Date/Time Associated Diagnosis [...] Elsewhere Classified Special Needs Nanda Fu Primary. SURGERY IMAGE EXAM Routine 02/09/2024 1: 25 PM CDT COLONOSCOPY 07/21/2022 11:07 AM REINSURANCE CLAIM ANALYST from Last 3 Months or Most Recently [...] Claire PATEL, P.A.-C., P.A. LAB BLOOD ADD-ON [facility] [address] [address], [facility] [place] [address] [phone] * NT-Pro B-Type Natriuretic Peptide (BNP) (04/15/2024 4:33 PM CDT) Pathologist [facility] NT-Pro BNP 89 <=540 pg/mL 04/15/2024 5:13 [...] Claire PATEL, P.A.-C., P.A. LAB BLOOD ADD-ON [facility] [address] [place] [address], [facility] [place] [address] [place] [phone] * (ABNORMAL) CBC with Differential, Blood (04/15/2024 4:33 PM CDT) [facility] Hemoglobin 14.5 13.2 - 16.6 g/dL 04/15/2024 [...] PM CDT 04/15/2024 4:36 PM CDT Joslyn Herny.AdelaidaC., P.A. LAB BLOOD ADD-ON [facility] [address] [place] [address], [facility] in [address] [phone] * (ABNORMAL) Hemoglobin A1c (04/15/2024 4:33 PM [...] CDT Joslyn Henry.AdelaidaC., P.A. LAB BLOOD ADD-ON [facility] [address] [place] [address], [facility] [place] [address] [address] * Basic Metabolic Panel (04/15/2024 4:33 PM [...] Claire PATEL, P.A.-C., P.A. LAB BLOOD ADD-ON [facility] [address] [place] [address], [place] [facility] [place] [address] [place] [address] * ECG 12 Lead (04/15/2024 4:28 PM CDT) Ventricular Rate ECG/Min 82 BPM MUSE AL Interval 198 ms MUSE QRSD Interval 82 ms MUSE QT Interval 388 ms MUSE QTC Interval 453 ms MUSE P [place] 69 degrees MUSE R [place] 31 degrees MUSE T Wave [place] 69 degrees MUSE 04/15/2024 4:28 PM CDT [...] ECGs available Reviewed by DONTE Fink Claire PATEL, PDrea.-Bouchra., P.A. ECG ORDERABLES MUSE NA * PSA (Prostate-Specific Antigen), Diagnostic (03/01/2024 9:17 AM CDT) Prostate-Specific Ag <0.10 <=6.5 ng/mL 03/01/2024 9:[address] Comment: ----ADDITIONAL INFORMATION---- The testing method is [...] CDT 03/01/2024 9:27 AM CDT Michael Kingsley APRNZoila, Saulo LAB B LOOD ADD-ON Performing Organization Address [facility] de Phone Number [facility] [address] [place] [address], [facility] [place] [address] [place] [address] * FL Fluoro Less Than 1 Hour (02/09/2024 3:21 PM CDT) Narrative [id number] - 02/09/2024 3:22 PM CDT This exam does not require a radiologist review or interpretation. Please refer to the patient's medical record on this date for clinical details. Nanda Fu P.A.-C. IMG FLUOROSCOPY PROCEDURES Performing Organization Address [facility] de Phone Number [id number] NA * BLADDER-Surgery Image Exam (02/09/2024 1:25 [...] RAD IMAGI NG PROCEDURES Performing Organization Address [facility] de Phone Number IIMS NA * COLONOSCOPY (07/21/2022 11:07 AM REINSURANCE CLAIM ANALYST) Narrative Procedure Note Jass Macias M.D. - 07/21/2022 11:[address] [facility] [place] [facility] Patient Name: Breezy Paz Procedure Date: [...] bowel preparation was evaluated using the BBPS (Lincoln BowelPreparation Scale) with scores of: Right Colon [...] Initiated On: 07/21/2022 11:07 AM Jose Rafael PATEL P.A.-C., P.A. GI PROCEDURE ORDERABLES from Last 3 Months or Most Recently Relevant to Health Maintenance Advance Directives For more information, please contact: [phone] Documents on File Type Date Recorded Patient Financial Services Auditor Expl anation Advance Directives 03/13/2023 1:42 PM Abel Jones Yessi Akbar HCPOA/ADVOCATE/AGENT/ HUMAN RESOURCES COORDINATOR/SURROG ATE * Full Code (Latest Code Status on File) Date Activated Date Inactivated Comments 11/14/2022 7:04 AM 11/14/2022 1:06 PM Question Answer Comments Full Code: Not Discussed Due to: Patient not available * Full Code Date Activated Date Inactivated Comments 07/21/2022 11:42 AM 07/21/2022 1:46 PM Question Answer Comments Full Code: Discussed Healthcare Agents on File Name Relationship Healthcare Agent Relationship Communication Abel Paz Son Health Care Agent [email or web address] [employer] Alternate Health Care Agent Care Teams Marketing Assistant Manager Relationship Specialty Start Date End Date Claire Jimenez MPAS, P.A.-C., P.A. [address] [address] PCP - General Family Medicine 04/01/24
--- OUTSIDE RECORDS SUMMARY | 2024-04-30 07:05 | XMS_ITS | Encounter Summary ---
Author Organization [facility] Address [address] [place] [address] Care Team Providers Care Transmitter Supervisor Name Role Phone No Contact, Pcp Primary Care Provider Unavailabl e Encounter Details Date Type Department Care Team (Late st Contact Info) Description 02/09/2024 1:01 PM CDT - 02/09/2024 2:04 PM CDT Surgery Outpatient [facility] Center in [place], [place] [address] [place] [phone] Sylvia Toscano D.O. [address] [place] [phone] EXCHANGE URETERAL STENT Social History Tobacco Use Types Packs/Day Years Used Date Smoking Tobacco: Never Smokeless Tobacco: Never Alcohol Use Standard Drinks/Week Comments Yes 2 (1 standard drink = 0.6 oz pur e alcohol) [facility] Utilities Answer Date Recorded In the past [...] How often do you attend chur or muslim services? More than 4 times per year 10/27/2022 Do you belong to any clubs o r organizations such as jehovah's witness groups, unions, fraternal or athletic groups, or [...] Answer Date Recorded PHQ-2 Score 0 10/27/2022 [facility] [place] [place] of Occupat ional Health - Occupational Stress [...] your living situation today? I have a [facility] place to live 02/03/2024 Education Answer [...] Sign Reading Time Taken Comments Blood Pressure 142/96 02/09/2024 1:23 PM CDT Pulse 86 02/09/2024 1:23 PM CDT Temperature 36.6 ??C (97.9 ??F) 02/09/2024 1:23 PM CD T Respiratory Rate 17 02/09/2024 1:23 PM CDT Oxygen Saturation 95% 02/09/2024 1:23 PM CDT Inhaled Oxygen Concentration - - Weight 121 kg (265 lb 14 oz) 02/09/2024 1:23 PM CDT Height 179.5 cm (5' 10.67) 02/09/2024 1:23 PM C DT Body Mass Index 37.43 02/09/2024 1:23 PM CDT documented in this encounter Medications at Time of Discharge [...] by mouth daily. Med Name: RAMOS REYNA cefdinir (OMNICEF) 300 mg capsule Take 1 capsule (300 mg total) by mouth every 12 (twelve) hours for 3 doses. 3 capsule 02/08/2024 02/10/2024 albuterol 90 mcg/actuation inhalerIndications:Infe ction Respiratory Lower Inhale 2 puffs every 4 (four) hours as needed for wheezing. 18 g 09/03/2023 04/15/2024 tamsulosin (FLOMAX) 0.4 mg 24 hr capsule take 1 capsule by mouth every day 90 capsule 2 07/14/2023 04/15/2024 trospium (SANCTURA) 20 mg tablet Take 1 tablet (20 mg total) by mouth 2 (two) times a day as needed (Bladder spasms). 60 tablet 6 09/07/2023 04/15/2024 documented as of this encounter OR Notes * Op Note - Sola Perez M.D., M.S. 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 Findings 1. Limited cystoscopy showed normal anterior urethra, coapted sphincter, high riding and fixed bladder neck, normal bladder mucosa where seen with no evidence of stones within the bladder. 2. Right ureteral noted to be emanating from the right ureteral orifice with moderate stone encrustation. 3. Retrograde pyelogram showed tortuous ureter, moderate hydronephrosis, which appeared stable to increased from prior. 4. Right ureteral stent exchange, upsized diameter to 7 Fr x 26 cm. Note there is excess length to the stent and stent length could likely be shortened at next exchange. Plan: - Next stent exchange in 5-6 months to be coordinated by primary team. Consider reducing length of stent at next exchange. Complications None Operative Note Narrative After appropriate patient identification and verification of informed consent, the patient was brought into the OR and placed under monitored anesthesia care. The patient was then prepped and draped in the standard sterile fashion in the dorsal lithotomy position. After surgical pause and confirmation of antibiotic administration, we proceeded with a cystoscopy. The bladder neck was very high riding and fixed. No tumors or lesions concerning for malignancy were seen. A stent was noted to be emanating from the right ureteral orifice with moderate encrustation. The right ureteral orifice was cannulated with a sensor tip wire, this was advanced until resistance was met in the mid-ureter. Due to ureteral tortuosity, the wire was unable to be manipulated beyond the mid-ureter. A tigertail ureteral catheter was advanced over the wire to aid in straightening the ureter, and with gentle manipulation the wire was advanced into the renal pelvis. Using stent graspers the distal end of the right stent was grasped and the old stent was removed. Next, the cystoscope was backloaded over the wire, and the tigertail ureteral catheter was advancedover the wire past the area of tortuosity. A retrograde pyelogram was performed which showed dilated proximal ureter, moderate hydronephrosis, no obvious filling defects. The wire was replaced, and a 7 Yoruba by 26 cm Imajin stent was deployed in the standard fashion with good proximal curl seen on fluoroscopy and good distal curl seen in the bladder. The bladder was drained at the conclusion of procedure. The patient was awoken from anesthesia and transferred to the recovery room in stable condition. Sola Perez M.D., M.S. documented in this encounter Plan of Treatment Upcoming Encounters Date Type Department Care Team (Latest Contact Info) Description 05/08/2024 4:00 PM CDT Office Visit Department of Family Medicine, [facility], in [address] [place] [phone] Claire Jimenez MPAS, P.A.-C., P.A. [address] [place] [phone] 05/10/2024 11:30 AM CDT Comprehensive Visit Department of Physical Medicine and Rehabilitation in [address] [place] [phone] Claire Jimenez MPAS, P.A.-C., P.A. [address] [place] [phone] Micaela Monae P.T. [address] [place] [phone] 07/10/2024 9:30 AM BOAT TENDER Appointment Department of Cardiovascular Diseases in [address] [phone] Claire Jimenez MPAS, P.A.-C., P.A. [address] [place] [phone] documented as of this encounter Procedures Procedure Name Priority Date/Time Associated Diagnosis Comments FL FLUORO LESS THAN 1 HOUR RAD - Routine (most inpatients and all outpatients) 02/09/2024 3:21 PM CDT RETROGRADE PYELOGRAM 02/09/2024 1:45 PM CDT 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 EXCHANGE URETERAL STENT 02/09/2024 1:45 PM CDT Hydronephrosis With Ureteral Stricture Not Elsewhere Classified Special Needs Nanda Bernabe. documented in this encounter Results * FL Fluoro Less Than 1 Hour (02/09/2024 3:21 PM CDT) Narrative [id number] - 02/09/2024 3:22 PM CDT This exam does not require a radiologist review or interpretation. Please refer to the patient's medical record on this date for clinical details. Nanda Fu P.A.-C. IMG FLUOROSCOPY PROCEDURES [id number] NA documented in this encounter Visit Diagnoses Diagnosis Hydronephrosis With Ureteral Stricture Not Elsewhere Classified- Primary Hydronephrosis With Ureteral Stricture Not Elsewhere Classified documented in this encounter Admitting Diagnoses Diagnosis Hydronephrosis With Ureteral Stricture Not Elsewhere Classified documented in this encounter Administered Medications Inactive Administered Medications - up to 3 most recent administrations Medication Order MAR Action Action Date Dose Rate Site acetaminophen tablet 1,000 mg (TYLENOL) 1,000 mg, oral, Once, On Mon02/09/24 at 1330, For 1 dose, Pre-Op, PreOp give in preprocedural area. Given 02/09/2024 1:18 PM CDT 1,000 mg chlorhexidine 0.12 % mouthwash 15 mL (PERIDEX) 15 mL, swish & spit, Once as needed, Chlorhexidine mouthwash (Peridex) should be given if patient did not complete oral care, if completion is greater than 4 hours prior to surgery or procedure start time and they do not have the opportunity to brush their teeth now (or at this time)., Starting on Mon02/09/24 at 1310, For 1 dose, Pre-Op, Instruct patient to swish entire content of Chlorhexidine 0.12% mouthwash (PERIDEX) 15 mL cup for 30 seconds, then spit, swish & spit. If patient is at risk for aspiration, apply Chlorhexidine 0.12% mouthwash to a swab and gently swab the patient's teeth and gums. Ensure swab is not oversaturated. iohexoL 300 mg iodine/mL solution (OMNIPAQUE) As needed, Starting on Mon02/09/24 at 1432, Intra-Op Given 02/09/2024 2:32 PM CDT 10 mL Right Ureter Lactated Ringer's 20 mL/hr, intravenous, Continuous, Starting on Mon02/09/24 at 1330 New Bag 02/09/2024 2:41 PM CDT Rate/Dose Verify 02/09/2024 1:55 PM CDT 20 mL/h r New Bag 02/09/2024 1:19 PM CDT 20 mL/hr 20 mL/hr sodium chloride 0.9 % injection 10 mL 10 mL, intravenous, As needed, line care, Starting on Mon02/09/24 at 1310, Pre- Op, Peripheral Intravenous Catheter and Rapid Infusion Catheter, prior to blood sampling, post blood transfusion or post blood sampling sodium chloride 0.9 % injection 3 mL 3 mL, intravenous, As needed, line care, Starting on Mon02/09/24 at 1310, Pre-Op, Prior to and following infusion and between multiple consecutive infusions: sodium chloride 0.9 % injection sodium chloride 0.9 % injection 3 mL 3 mL, intravenous, Every 12 hours scheduled, First dose on Mon02/09/24 at 2100, Pre-Op, Peripheral Intravenous Catheter and Rapid Infusion Catheter, when no infusion to maintain patency documented in this encounter Active and Recently Administered Medications Times are shown in CDT. Scheduled Medication Order 02/07/2024 02/08/2024 02/09/2024 acetaminophen tablet 1,000 mg (TYLENOL) 1,000 mg, oral, Once, On Mon02/09/24 at 1330, For 1 dose, Pre-Op 1330 (Due) acetaminophen tablet 1,000 mg (TYLENOL) (COMPLETED) 1,000 mg, oral, Once, On Mon02/09/24 at 1330, For 1 dose, Pre-Op, PreOp give in preprocedural area. 1318 (Given - Provid er: Christina Moore R.N.) ceFAZolin injection 3 g (ANCEF) (COMPLETED) 3 g, intravenous, Once, On Mon02/09/24 at 1330, For 1 dose, Intra-Op, If needed, reconstitute vial per package insert instructions. See IVAG for administration guidelines., Drug Monitoring Program: Pharmacist to adjust medication dosing based on indication and drug clearance factors., Indications: Prophylaxis, surgical 1409 (Given - Provid er: Niya Gastelum, PRINCIPAL STATISTICAL PROGRAMMER, DIRECTOR OF MARKETING ANALYTICS) lidocaine HCL 2 % topical jelly 1 Application (GLYDO) 1 Application, urethral, Once, On Mon02/09/24 at 1330, For 1 dose, Intra-Op 1330 (Due) sodium chloride 0.9 % injection 3 mL 3 mL, intravenous, Every 12 hours scheduled, First dose on Mon02/09/24 at 2100, Pre-Op, Peripheral Intravenous Catheter and Rapid Infusion Catheter, when no infusion to maintain patency sodium chloride 0.9 % injection 3 mL 3 mL, intravenous, Every 12 hours scheduled, First dose on Mon02/09/24 at 2100, Pre-Op, Peripheral Intravenous Catheter and Rapid Infusion Catheter, when no infusion to maintain patency Continuous Medication Order 02/07/2024 02/08/2024 02/09/2024 Lactated Ringer's 20 mL/hr, intravenous, Continuous, Starting on Mon02/09/24 at 1330 1319 (New Bag - Prov ider: Christina Moore RDavidNDavid)1355 (Rate/Dose Verify - Provider: Niya Gastelum APRN, CRNA)1440 (Paused - Provider: Niya Gastelum APRN, CRNA - Comment: Switch to gravity)1441 (New Bag - Provider: Niya Gastelum APRN, CRNA)1627 (Stopped - Provider: Lourdes Gregory R.N.) PRN Medication Order 02/07/2024 02/08/2024 02/09/2024 chlorhexidine 0.12 % mouthwash 15 mL (PERIDEX) 15 mL, swish & spit, Once as needed, Chlorhexidine mouthwash (Peridex) should be given if patient did not complete oral care, if completion is greater than 4 hours prior to surgery or procedure start time and they do not have the opportunity to brush their teeth now (or at this time)., Starting on Mon02/09/24 at 1310, For 1 dose, Pre-Op, Instruct patient to swish entire content of Chlorhexidine 0.12% mouthwash (PERIDEX) 15 mL cup for 30 seconds, then spit, swish & spit. If patient is at risk for aspiration, apply Chlorhexidine 0.12% mouthwash to a swab and gently swab the patient's teeth and gums. Ensure swab is not oversaturated. iohexoL 300 mg iodine/mL solution (OMNIPAQUE) (CANCELED) As needed, Starting on Mon02/09/24 at 1432, Intra-Op 1432 (Given - Provid er: Sola Perez M.D., M.S.) sodium chloride 0.9 % injection 10 mL 10 mL, intravenous, As needed, line care, Starting on Mon02/09/24 at 1310, Pre-Op, Peripheral Intravenous Catheter and Rapid Infusion Catheter, prior to blood sampling, post blood transfusion or post blood sampling sodium chloride 0.9 % injection 10 mL 10 mL, intravenous, As needed, line care, Starting on Mon02/09/24 at 1310, Pre-Op, Peripheral Intravenous Catheter and Rapid Infusion Catheter, prior to blood sampling, post blood transfusion or post blood sampling sodium chloride 0.9 % injection 3 mL 3 mL, intravenous, As needed, line care, Starting on Mon02/09/24 at 1310, Pre-Op, Prior to and following infusion and between multiple consecutive infusions: sodium chloride 0.9 % injection sodium chloride 0.9 % injection 3 mL 3 mL, intravenous, As needed, line care, Starting on Mon02/09/24 at 1310, Pre-Op, Prior to and following infusion and between multiple consecutive infusions: sodium chloride 0.9 % injection documented in this encounter Care Teams Transmitter Supervisor Relationship Specialty Start Date End Date No Contact, Pcp PCP - General Family Medicine 07/31/19 03/31/24 documented as of this encounter
--- OUTSIDE RECORDS SUMMARY | 2024-04-30 07:05 | XMS_ITS | Encounter Summary ---
Author Organization [facility] Address [address] [place] [address] Care Team Providers Care Director Of Science Name Role Phone No Contact, Pcp Primary Care Provider Unavailabl e Encounter Details Date Type Department Care Team (Late st Contact Info) Description 02/29/2024 Orders Only Department of Radiation Oncology in [place], [place] [address] [place] [phone] Michael Kingsley, TIMOTHY, C.N.P., D.N.P. [address] [place] [phone] Primary Malignant Neoplasm Of Prostate (HCC) (Primary Dx) Social History Tobacco Use Types Packs/Day Years Used Date Smoking Tobacco: Never Smokeless Tobacco: Never Alcohol Use Standard Drinks/Week Comments Yes 2 (1 standard drink = 0.6 oz pur e alcohol) [facility] Utilities Answer Date Recorded In the [...] How often do you attend chur or confucianism services? More than 4 times per year 10/27/2022 Do you belong to any clubs o r organizations such as faith groups, unions, fraternal or athletic groups, or [...] Answer Date Recorded PHQ-2 Score 0 10/27/2022 [facility] [place] of Occupat ional Health - Occupational Stress [...] your living situation today? I [facility] [employer] [facility] to [facility] 02/03/2024 Education Answer Date [...] CDT Office Visit Department of Family Medicine, [facility], in [place], [place] [address] [place] [phone] Claire Jimenez MPAS, P.A.-C., P.A. [address] [place] [phone] 05/10/2024 11:30 AM CDT Comprehensive Visit Department of Physical Medicine and Rehabilitation in [address] [place] [phone] Claire Jimenez MPAS, P.A.-C., P.A. [address] [place] [phone] Micaela Monae P.T. [address] [place] [phone] 07/10/2024 9:30 AM TECHNICAL SUPPORT CONSULTANT Appointment Department of Cardiovascular Diseases in [address] [phone] Claire Jimenez MPAS, P.A.-C., P.A. [address] [place] [phone] documented as of this encounter Results * PSA (Prostate-Specific Antigen), Diagnostic (03/01/2024 9:17 AM CDT) [facility] Prostate-Specific Ag <0.10 <=6.5 ng/mL 03/01/2024 9:59 [...] AM CDT Michael Kingsley APRN, C.N.P., D.N.P. [facility] [address] [place] [address], [facility] in [place] [address] [place] [phone] documented in this encounter Visit Diagnoses Diagnosis Primary Malignant Neoplasm Of Prostate (HCC)- Primary documented in this encounter Care Teams Director Of Science Relationship Specialty Start Date End Date No Contact, Pcp PCP - General Family Medicine 07/31/19 03/31/24 documented as of this encounter
--- OUTSIDE RECORDS SUMMARY | 2024-04-30 07:05 | XMS_ITS | Encounter Summary ---
Author Organization [facility] Address [address] [place] [address] Care Team Providers Care Filler Mixer Name Role Phone No Contact, Pcp Primary Care Provider Unavailabl e Reason for Referral * Outpatient (Routine) - Closed Specialty Diagnoses / Procedures Referred By Lucinda franco Referred To Contact Urology Nanda Fu P.A.-C. [address] [place] [phone] [facility] Referral ID Status Reason Start Date Expiration Date Visits Re quested Visits Authorized [id number] Closed 01/18/2024 07/19/2025 1 1 Scheduling Instructions Add on my schedule at 10:30 February 07. Encounter Details Date Type Department Care Team (Late st Contact Info) Description 01/18/2024 Orders Only Department of Urology in [place], [place] [address] [place] [phone] Nanda Fu P.A.-C. 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 More than 4 times per year 10/27/2022 Do you belong to any clubs o r organizations such as yarsani groups, unions, fraternal or athletic groups, or [...] Answer Date Recorded PHQ-2 Score 0 10/27/2022 [facility] [place] of Occupat ional Health - Occupational Stress [...] Medicine, [facility], in [address] [place] [phone] Claire Jimenez MPAS P.A.-C., P.A. [address] [place] [phone] 05/10/2024 11:30 AM CDT Comprehensive Visit Department of Physical Medicine and Rehabilitation in [address] [phone] Claire Jimenez MPAS, P.A.-C., P.A. [address] [place] [phone] Micaela Monae P.T. [address] [place] [phone] 07/10/2024 9:30 AM UNIFIED COMMUNICATIONS ENGINEER Appointment Department of Cardiovascular Diseases in [address] [phone] Claire Jimenez MPAS P.A.-C., P.A. [address] [place] [phone] Scheduled Referrals Name Type Priority Associated Diagnoses Orde r Schedule Urology office visit (clinic) Outpatient Referral Routine Expected: 02/08/2024, Expires: 04/19/2025 documented as of this encounter Results * Bacterial Culture, Aerobic + Susceptibility, Urine (01/26/2024 8:15 AM CDT) Urine Culture No growth after 1 day of incubation. 01/27/2024 10:08 AM CDT ECLR Urine (Urine, Midstream) 01/26/2024 8:15 AM CDT 01/26/2024 2:29 PM CDT Comment:Specimen Source Site : Urine Nanda Fu P.A.-C. LAB MICROBIOLOGY - GENERAL ORDERABLES [facility] [address] [place] [address], [facility] in [address] [address] documented in this encounter Visit Diagnoses Diagnosis Hydronephrosis With Ureteral Stricture Not Elsewhere Classified- Primary documented in this encounter Care Teams Filler Mixer Relationship Specialty Start Date End Date No Contact, Pcp PCP - General Family Medicine 07/31/19 03/31/24 documented as of this encounter
--- OUTSIDE RECORDS SUMMARY | 2024-04-30 07:05 | XMS_ITS | Encounter Summary ---
Author Organization [facility] Address [address] [place] [address] Care Team Providers Care Solar Sales Estimator Name Role Phone No Contact, Pcp Primary Care Provider Unavailabl e Reason for Visit * Reason Onset Date Comments Pre-visit Intake 02/07/2024 Encounter Details Date Type Department Care Team (Latest Contact Info) Description 02/07/2024 12:15 PM CDT Clinical Communication Virtual Review in [place], [place] [address] [place] [phone] Pre-visit Intake Social History Tobacco Use Types Packs/Day Years Used Date Smoking Tobacco: Never Smokeless Tobacco: Never Alcohol Use Standard Drinks/Week Comments Yes 2 (1 standard drink = 0.6 oz pur e alcohol) [facility] Utilities Answer Date Recorded In the past 12 months has [employer], gas, oil, or water [employer] threatened to shut off services in your [...] How often do you attend chur or voodoo services? More than 4 times per year 10/27/2022 Do you belong to any clubs o r organizations such as orthodoxy groups, unions, fraternal or athletic groups, or [...] Answer Date Recorded PHQ-2 Score 0 10/27/2022 [facility] [place] of Occupat ional Health - Occupational Stress [...] living situation today? I have a [facility] place to live 02/03/2024 Education Answer [...] CDT Office Visit Department of Family Medicine, [facility], in [address] [phone] Claire Jimenez MPAS, P.A.-C., P.A. [address] [place] [phone] 05/10/2024 11:30 AM CDT Comprehensive Visit Department of Physical Medicine and Rehabilitation in [address] [place] [phone] Claire Jimenez MPAS, P.A.-C., P.A. [address] [place] [phone] Micaela Monae P.T. [address] [place] [phone] 07/10/2024 9:30 AM BRAINER Appointment Department of Cardiovascular Diseases in [address] [place] [phone] Claire Jimenez MPAS, P.A.-C., P.A. [address] [place] [phone] documented as of this encounter Visit Diagnoses Not on filedocumented in this encounter Care Teams Solar Sales Estimator Relationship Specialty Start Date End Date No Contact, Pcp PCP - General Family Medicine 07/31/19 03/31/24 documented as of this encounter
--- OUTSIDE RECORDS SUMMARY | 2024-04-30 07:05 | XMS_ITS | Encounter Summary ---
Author Organization [facility] Address [address] [place] [address] Care Team Providers Care Metal Stud Framer Name Role Phone No Contact, Pcp Primary Care Provider Unavailabl e Encounter Details Date Type Department Care Team (Late st Contact Info) Description 01/30/2024 Clinical Communication Department of Urology in [place], [place] [address] [place] [phone] Liz Ortez Social History Tobacco Use Types Packs/Day Years Used Date Smoking Tobacco: Never Smokeless Tobacco: Never Alcohol Use Standard Drinks/Week Comments Yes 2 (1 standard drink = 0.6 oz pur e alcohol) [facility] Utilities Answer Date Recorded In the past 12 months has [facility] [employer], gas, oil, or water [facility] threatened to shut off services in your [...] How often do you attend chur or tenriism services? More than 4 times per year 10/27/2022 Do you belong to any clubs o r organizations such as judaism groups, unions, fraternal or athletic groups, or [...] Answer Date Recorded PHQ-2 Score 0 10/27/2022 [facility] of Occupat ional Health - [...] your living situation today? I have a [facility] place to live 02/03/2024 Education [...] CDT Office Visit Department of Family Medicine, [facility], in [address] [phone] Claire Jimenez MPAS, P.A.-C., P.A. [address] [place] [phone] 05/10/2024 11:30 AM CDT Comprehensive Visit Department of Physical Medicine and Rehabilitation in [address] [phone] Claire Jimenez MPAS, P.A.-C., P.A. [address] [place] [phone] Micaela Monae P.T. [address] [place] [phone] 07/10/2024 9:30 AM WOMEN'S SWIM COACH Appointment Department of Cardiovascular Diseases in [place], [place] [address] [place] [phone] Claire Jimenez MPAS, P.A.-C., P.A. [address] [place] [phone] documented as of this encounter Visit Diagnoses Not on filedocumented in this encounter Care Teams Metal Stud Framer Relationship Specialty Start Date End Date No Contact, Pcp PCP - General Family Medicine 07/31/19 03/31/24 documented as of this encounter
--- OUTSIDE RECORDS SUMMARY | 2024-04-30 07:05 | XMS_ITS | Encounter Summary ---
Author Organization [facility] Address [address] [place] [address] Care Team Providers Care Supervisor Fur Floor Worker Name Role Phone No Contact, Pcp Primary Care Provider Unavailabl e Encounter Details Date Type Department Care Team (Latest Contact Info) Description 01/26/2024 8:04 AM CDT - 01/26/2024 11:59 PM CDT Hospital Encounter Department of Laboratory Medicine in [place], [place] [address] [place] [phone] Nanda Fu, PDavidADavid-C. [address] [place] [phone] Hydronephrosis With Ureteral Stricture Not Elsewhere Classified Discharge Disposition: Home or Self Care Social History Tobacco Use Types Packs/Day Years Used Date Smoking Tobacco: Never Smokeless Tobacco: Never Alcohol Use Standard Drinks/Week Comments Yes 2 (1 standard drink = 0.6 oz pur e alcohol) Humiliation, Afraid, Rape, and Kick questionnair e [...] How often do you attend chur or shinto services? More than 4 times per year 10/27/2022 Do you belong to any clubs o r organizations such as jainism groups, unions, fraternal or athletic groups, or [...] Answer Date Recorded PHQ-2 Score 0 10/27/2022 [facility] of Occupat ional Health - Occupational Stress [...] to strenuous exercise (like a brisk walk)? 1 day 10/27/2022 On average, how many minutes do you engage in exercise at this level? 10 min 10/27/2022 Hunger Vital Sign Answer Date Recorded Within the past 12 months, y ou worried that your food would run out before you got the money to buy more. Never true 10/27/19 Within the past 12 months, t he food you bought just didn't last and you didn't have money to get more. Never true 10/27/2022 PRAPARE - Transportation Answer Date Re corded In the past 12 months, has l ack of transportation kept you from medical appointments or from getting medications? No 10/06 In the past 12 months, has l ack of transportation kept you from meetings, work, or from getting things needed for daily living? No 10/27/2022 Housing Stability Vital Sign Answer Anthony e Recorded In the last 12 months, was t here a time when you were not able to pay the mortgage or rent on time? No 10/27/2022 In the last 12 months, how many places have you lived? 1 10/27/2022 In the last 12 months, was t here a time when you did not have a steady place to sleep or slept in a longterm (including now)? No 10/27/2022 Nutrition Answer Date Recorded Nutrition: EVOO Fat Source No 10/27 On average, how many serving s of fruits and vegetables do you eat per day (serving size is equal to 1 cup or approximately the size of a tennis ball)? 2-3 10/27/2022 Dental Answer Date Recorded Dental: Regular Dentist No 04/29/20 Employment Answer Date Recorded Employment status Employed and actively working without restrictions 10/27/2022 Education Answer Date Recorded What is the [...] by mouth daily. Med Name: RAMOS REYNA albuterol 90 mcg/actuation inhalerIndications:Infe ction Respiratory Lower [...] 09/07/2023 04/15/2024 documented as of this encounter Plan of Treatment Upcoming Encounters Date Type Department Care Team (Latest Contact Info) Description 05/08/2024 4:00 PM CDT Office Visit Department of Family Medicine, [facility], in [address] [phone] Claire Jimenez MPAS, P.A.-C., P.A. [address] [place] [phone] 05/10/2024 11:30 AM CDT Comprehensive Visit Department of Physical Medicine and Rehabilitation in [address] [phone] Claire Jimenez MPAS, P.A.-C., P.A. [address] [place] [phone] Micaela Monae P.T. [address] [place] [phone] 07/10/2024 9:30 AM OCCUPATIONAL HEALTH NURSING DIRECTOR Appointment Department of Cardiovascular Diseases in [place], [place] [address] [place] [phone] Claire Jimenez MPAS, PIzzy., P.A. [address] [place] [phone] documented as of this encounter Procedures Procedure Name Priority Date/Time Associated Diagnosis Comments BACTERIAL CULTURE, AEROBIC + SUSC, URINE Routine 01/26/2024 8:15 AM CDT Hydronephrosis With Ureteral Stricture Not Elsewhere Classified documented in this encounter Results * Bacterial Culture, Aerobic + Susceptibility, Urine (01/26/2024 8:15 AM CDT) Urine Culture No growth after 1 day of incubation. 01/27/2024 10:08 AM CDT ECLR Urine (Urine, Midstream) 01/26/2024 8:15 AM CDT 01/26/2024 2:29 PM CDT Comment:Specimen Source Site : Urine Nanda Fu P.A.-C. LAB MICROBIOLOGY - GENERAL ORDERABLES [facility] [address] [place] [address], [facility] ECLR [facility] in [address] [phone] documented in this encounter Visit Diagnoses Diagnosis Hydronephrosis With Ureteral Stricture Not Elsewhere Classified documented in this encounter Care Teams Supervisor Fur Floor Worker Relationship Specialty Start Date End Date No Contact, Pcp PCP - General Family Medicine 07/31/19 03/31/24 documented as of this encounter
--- OUTSIDE RECORDS SUMMARY | 2024-04-30 07:05 | XMS_ITS | Encounter Summary ---
Author Organization [facility] Address [address] [place] [phone] Care Team Providers Care Ekg Manager Name Role Phone No Contact, Pcp Primary Care Provider Unavailabl e Encounter Details Date Type Department Care Team (Late st Contact Info) Description 02/27/2024 Clinical Communication Department of Radiation Oncology in [place], [place] [address] [place] [phone] Michael Kingsley, TIMOTHY, C.N.P., D.N.P. [address] [place] [phone] Social History Tobacco Use Types Packs/Day Years Used Date Smoking Tobacco: Never Smokeless Tobacco: Never Alcohol Use Standard Drinks/Week Comments Yes 2 (1 standard drink = 0.6 oz pur e alcohol) [facility] Utilities Answer Date Recorded In the [...] How often do you attend chur or christian services? More than 4 times per year 10/27/2022 Do you belong to any clubs o r organizations such as scientology groups, unions, fraternal or athletic groups, or [...] Answer Date Recorded PHQ-2 Score 0 10/27/2022 [facility] of Occupat ional Health - Occupational Stress [...] your living situation today? I have a [facility] place to live 02/03/2024 Education Answer [...] of Family Medicine, [facility], in [place], [place] [address] [place] [phone] Claire Jimenez, CRISTOBALS, P.A.-C., P.A. [address] [place] [phone] 05/10/2024 11:30 AM CDT Comprehensive Visit Department of Physical Medicine and Rehabilitation in [address] [phone] Claire Jimenez MPAS, P.A.-C., P.A. [address] [place] [phone] Micaela Monae P.T. [address] [place] [phone] 07/10/2024 9:30 AM ROCK MASON APPRENTICE Appointment Department of Cardiovascular Diseases in [address] [phone] Claire Jimenez MPAS, P.A.Hebert., P.A. [address] [place] [phone] documented as of this encounter Visit Diagnoses Not on filedocumented in this encounter Care Teams Ekg Manager Relationship Specialty Start Date End Date No Contact, Pcp PCP - General Family Medicine 07/31/19 03/31/24 documented as of this encounter
--- OUTSIDE RECORDS SUMMARY | 2024-04-30 07:05 | XMS_ITS | Encounter Summary ---
Author Organization [facility] Address [address] [place] [address] Care Team Providers Care Peoplesoft Business Analyst Name Role Phone No Contact, Pcp Primary Care Provider Unavailabl e Encounter Details Date Type Department Care Team (Late st Contact Info) Description 02/09/2024 1:55 PM CDT Anesthesia Event Outpatient Procedure Center in [place], [place] [address] [place] [phone] Niya Gastelum APRN, JC [address] [place] [phone] Amy Carranza M.D. [address] [place] [phone] Anesthesia Record Procedure Summary Procedure Name Responsible Anesthesiologist Anesthesia Start Time Anesthesia Stop Time EXCHANGE URETERAL STENT (Right) Niya Gastelum APRN, PICKLING OPERATOR 02/09/24 1355 02/09/24 1454 Events Date Time Event Comment 02/09/2024 1355 An Start Machine/Equipme nt Checked Infection Precautions Followed Procedure/Site Verified NPO Status Verified Supine Standard ASA Monitors Applied 1401 Turnover to Proceduralist 1423 Proc Start 1440 Proc Fin 1442 Turnover to ANE Staff 1449 an stop data 1454 An End I completed my handoff to the receiving staff during which we 1. Identified the patient 2. Identified the responsible provider 3. Reviewed the pertinent medical history 4. Discussed the surgical course 5. Reviewed intra-op anesthesia management and issues during anesthesia 6. Set expectations for post-procedure period 7. Allowed opportunity for questions and acknowledgement of understanding. Meds Name Total fentanyl injection 50 mcg/mL 50 mcg lidocaine 2% (mg) injection 100 mg ondansetron PF 4 mg/2 mL injection 4 mg propofol 10 mg/mL injection 170 mg propofol 10 mg/mL infusion 388.94 mg ceFAZolin injection 3 g (ANCEF) 3 g Lactated Ringer's 1,000 mL * Agents No agents on file. * Blood No blood administrations on file. Lines, Drains, and Airways Type Details Placement Removal Peripheral IV Placement Date: 03/27; Placement Time: 131; Catheter Size: 22 G; Orientation: Left; Location: Hand; Site Prep: Chlorhexidine (Preferred); Technique: Anatomical landmarks; Inserted by: Christina MCCOY; Insertion Attempts: 1; Removal Date: 02/09/24; Removal Time: 162; Removal Reason: Patient discharged 02/09/24 1317 by Christina Moore, R.N. 02/09/24 1626 by Lourdes Gregory R.N. documented in this encounter Social History Tobacco Use Types Packs/Day Years Used Date Smoking Tobacco: Never Smokeless Tobacco: Never Alcohol Use Standard Drinks/Week Comments Yes 2 (1 standard drink = 0.6 oz pur e alcohol) [facility] Utilities Answer Date Recorded In the past 12 months has [facility] [employer], [employer], oil, or water [employer] threatened to shut off services in your [...] How often do you attend chur or orthodox services? More than 4 times per year 10/27/2022 Do you belong to any clubs o r organizations such as christian groups, unions, fraternal or athletic groups, or [...] Answer Date Recorded PHQ-2 Score 0 10/27/2022 [facility] of Occupat ionid Health - Occupational Stress Questionnaire Answer Date [...] your living situation today? I have a [facility] place to live 02/03/2024 Education Answer Date Recorded What is the highest level of school you have completed or the highest degree you have received? 12th grade 04/29/2022 Sex and Gender Information Value Date Recorded Sex Assigned at Male 04/29/2022 3:19 PM CDT Gender Identity Male 04/29/2022 3:19 PM CDT Sexual Orientation Straight 04/29/2022 3: 19 PM CDT documented as of this encounter OR Notes * Anesthesia Postprocedure Evaluation - Niya Gastelum APRN, CRNA - 02/09/2024 2:54 PM CDT Patient: Breezy Paz Procedure Summary Date: 02/09/24 Room / Location: [place] [address] [place] [address] / [facility] in [place], [place] Anesthesia Start: 1355 Anesthesia Stop: 1454 Procedures: EXCHANGE URETERAL STENT (Right) RETROGRADE PYELOGRAM (Right) Diagnosis: Hydronephrosis With Ureteral Stricture Not Elsewhere Classified (Hydronephrosis, Ureteral Stricture Not Elsewhere Classified [N13.1].) Surgeons: Sylvia Toscano D.O. Responsible Provider: Niya Gastelum APRN, CRNA Anesthesia Type: MAC ASA Status: 2 Anesthesia Type: MAC Last vitals Vitals Value Taken Time BP Temp Pulse 86 02/09/24 1454 Resp 12 02/09/24 1454 SpO2 95 % 02/09/24 1454 Vitals shown include unfiled device data. Please reference Vitals flowsheet for most recent vital signs. Anesthesia Post Evaluation Patient Disposition: dismissal Cardiovascular status: hemodynamics (HR & BP) acceptable Respiratory status: patent airway with spontaneous effort Temperature: normothermic Oxygen requirements: room air Level of consciousness: awake Pain score: pain adequately controlled and/or at baseline Post Op nausea/vomiting: none Hydration status: euvolemic * Anesthesia Preprocedure Evaluation - Amy Carranza M.D. - 02/09/2024 1:41 PM CDT Preprocedure Anesthesia & H&P Assessment Procedure Summary Date/Time: 02/09/24 1301 Procedure: EXCHANGE URETERAL STENT, Imajin 6x26. (Right) Diagnosis: Hydronephrosis With Ureteral Stricture Not Elsewhere Classified [N13.1] Pre-op diagnosis: Hydronephrosis, Ureteral Stricture Not Elsewhere Classified [N13.1]. Location: [place] [address] / [facility] in [place], [place] Surgeons: Sylvia Toscano D.O. Pertinent components of the patient's history including current problem list, medical history, surgical history, family history, social history, medications and allergies were reviewed. Present illness and pre-op diagnosis were confirmed. The planned surgery / procedure was verified with the patient / legal guardian. The patient's general health condition remains unchanged RELEVANT COMORBID CONDITIONS ONC (+) Primary Malignant Neoplasm Of Prostate (HCC) OBJECTIVE PHYSICAL EXAMINATION Airway (HEENT) Mallampati: III TM Distance: >3 FB Neck ROM: Full Mouth Opening: >3 cm Cardiovascular Cardiovascular Assessment: cardiovascular normal Pulmonary Pulmonary Assessment: Non labored General / Constitutional General State of Health:: calm Neurological Neurologic Assessment: alert and alert and oriented x 3 Dental Dental Assessment: dentition intact ASSESSMENT / PLAN ANESTHESIA PLAN ASA: 2 Anesthesia Plan: MAC Patient seen and allergies reviewed, anesthesia plan and risks discussed directly with patient /legal guardian or through an interpreter and translator. Risks/Benefits/Alternatives of Blood transfusion discussed with patient / legal guardian, includingan opportunity to ask questions and/or decline some or all transfusion therapies. The patient / legal guardian consented to the use of all blood products, as deemed medically necessary Approval to Proceed: approved for anesthesia documented in this encounter Plan of Treatment Upcoming Encounters Date Type Department Care Team (Latest Contact Info) Description 05/08/2024 4:00 PM CDT Office Visit Department of Family Medicine, [facility], in [address] [place] [phone] Claire Jimenez MPAS, P.A.-C., P.A. [address] [place] [phone] 05/10/2024 11:30 AM CDT Comprehensive Visit Department of Physical Medicine and Rehabilitation in [address] [phone] Claire Jimenez MPAS, P.A.AdelaidaC., P.A. [address] [place] [phone] Micaela Monae P.T. [address] [place] [phone] 07/10/2024 9:30 AM ASSET PROTECTION MANAGER Appointment Department of Cardiovascular Diseases in [address] [phone] Claire Jimenez MPAS, P.A.-C., P.A. [address] [place] [phone] documented as of this encounter Visit Diagnoses Not on filedocumented in this encounter Administered Medications Inactive Administered Medications - up to 3 most recent administrations Medication Order MAR Action Action Date Dose Rate Site ceFAZolin injection 3 g (ANCEF) 3 g, intravenous, Once, On Mon02/09/24 at 1330, For 1 dose, Intra-Op, If needed, reconstitute vial per package insert instructions. See IVAG for administration guidelines., Drug Monitoring Program: Pharmacist to adjust medication dosing based on indication and drug clearance factors., Indications: Prophylaxis, surgical Given 02/09/2024 2:09 PM CDT 3 g fentaNYL injection (SUBLIMAZE) intravenous, As needed, Starting on Mon02/09/24 at 1359, Anesthesia Intra-op Given 02/09/2024 1:59 PM CDT 50 mcg Lactated Ringer's 20 mL/hr, intravenous, Continuous, Starting on Mon02/09/24 at 1330 New Bag 02/09/2024 2:41 PM CDT Rate/Dose Verify 02/09/2024 1:55 PM CDT 20 mL/h r New Bag 02/09/2024 1:19 PM CDT 20 mL/hr 20 mL/hr lidocaine (PF) (cardiac) injection intravenous, As needed, Starting on Mon02/09/24 at 1358, Anesthesia Intra-op Given 02/09/2024 1:59 PM CDT 40 mg Given 02/09/2024 1:58 PM CDT 60 mg ondansetron (PF) injection (ZOFRAN) intravenous, As needed, Starting on Mon02/09/24 at 1357, Anesthesia Intra-op Given 02/09/2024 1:57 PM CDT 4 mg propofol 10 mg/mL infusion (DIPRIVAN) intravenous, Continuous Infusion: Per Instructions PRN, Starting on Mon02/09/24 at 1401, Anesthesia Intra-op Rate/Dose Change 02/09/2024 2:24 PM CDT 100 mcg/kg/min 72.36 mL/hr New Bag 02/09/2024 2:01 PM CDT 75 mcg/kg/min 54.27 mL/h r propofoL injection (DIPRIVAN) intravenous, As needed, Starting on Mon02/09/24 at 1405, Anesthesia Intra-op Given 02/09/2024 2:24 PM CDT 20 mg Given 02/09/2024 2:05 PM CDT 50 mg Given 02/09/2024 2:00 PM CDT 50 mg documented in this encounter Care Teams Peoplesoft Business Analyst Relationship Specialty Start Date End Date No Contact, Pcp PCP - General Family Medicine 07/31/19 03/31/24 documented as of this encounter
--- OUTSIDE RECORDS SUMMARY | 2024-04-30 07:05 | XMS_ITS | Encounter Summary ---
Author Organization [facility] Address [address] [place] [address] Care Team Providers Care Game And Fish Protector Name Role Phone No Contact, Pcp Primary Care Provider Unavailabl e Encounter Details Date Type Department Care Team (Late st Contact Info) Description 02/09/2024 1:25 PM CDT Ancillary Procedure Department of General Surgery Social History Tobacco Use Types Packs/Day Years Used Date Smoking Tobacco: Never Smokeless Tobacco: Never Alcohol Use Standard Drinks/Week Comments Yes 2 (1 standard drink = 0.6 oz pur e alcohol) [facility] Utilities Answer Date Recorded In the past 12 months has [facility] electric, gas, oil, or water [employer] threatened to shut off services in your [...] often do you attend chur ch or anglican services? More than 4 times per year 10/27/2022 Do you belong to any clubs o r organizations such as taoism groups, unions, fraternal or athletic groups, or [...] Answer Date Recorded PHQ-2 Score 0 10/27/2022 [facility] Questionnaire Answer Date Recorded [...] your living situation today? I have a [facility] place to live 02/03/2024 Education Answer [...] CDT Office Visit Department of Family Medicine, [facility], in [address] [phone] Claire Jimenez MPAS, P.A.-C., P.A. [address] [place] [phone] 05/10/2024 11:30 AM CDT Comprehensive Visit Department of Physical Medicine and Rehabilitation in [address] [phone] Claire Jimenez MPAS P.A.-C., P.A. 701 [place] [phone] Micaela Monae P.T. [address] [place] [phone] 07/10/2024 9:30 AM FALL INTERNSHIP Appointment Department of Cardiovascular Diseases in [place], [place] [address] [place] [phone] Claire Jimenez MPAS, Mike, P.A. [address] [place] [phone] documented as of this encounter Procedures Procedure Name Priority Date/Time Associated Diagnosis Comments SURGERY IMAGE EXAM Routine 02/09/2024 1: 25 PM CDT documented in this encounter Results * BLADDER-Surgery Image Exam (02/09/2024 1:25 PM CDT) 02/09/2024 1:21 PM CDT Narrative [facility] - 02/09/2024 2:48 PM CDT This order has been created and auto-finalized to support the import of images acquired without order. The clinical documentation to support these images can be found on the encounter that produced images. Provider Not In System IMG NON RAD IMAGI NG PROCEDURES [facility] NA documented in this encounter Visit Diagnoses Not on filedocumented in this encounter Care Teams Game And Fish Protector Relationship Specialty Start Date End Date No Contact, Pcp PCP - General Family Medicine 07/31/19 03/31/24 documented as of this encounter
--- OUTSIDE RECORDS SUMMARY | 2024-04-30 07:05 | XMS_ITS | Encounter Summary ---
Author Organization [facility] Address [address] [place] [address] Care Team Providers Care Legal Specialist Name Role Phone No Contact, Pcp Primary Care Provider Unavailabl e Reason for Visit * Reason Onset Date Comments Appt Request 01/18/2024 Encounter Details Date Type Department Care Team (Late st Contact Info) Description 01/18/2024 Clinical Communication Department of Urology in [place], [place] [address] [place] [phone] Nanda Fu, P.A.-C. [address] [place] [phone] Appt Request Social History Tobacco Use Types Packs/Day Years Used Date Smoking Tobacco: Never Smokeless Tobacco: Never Alcohol Use Standard Drinks/Week Comments Yes 2 (1 standard drink = 0.6 oz pur e alcohol) [facility] Utilities Answer Date Recorded In [...] How often do you attend chur or roman catholic services? More than 4 times per year [...] Answer Date Recorded PHQ-2 Score 0 10/27/2022 [facility] [place] of Occupat ional Health - Occupational Stress [...] your living situation today? I have a [facility] place to live 02/03/2024 Education Answer [...] CDT Office Visit Department of Family Medicine, [facility], in [place], [place] [address] [place] [phone] Claire Jimenez MPAS, P.A.-C., P.A. 701 [place] [phone] 05/10/2024 11:30 AM CDT Comprehensive Visit Department of Physical Medicine and Rehabilitation in [address] [place] [phone] Claire Jimenez MPAS, P.A.-C., P.A. [address] [place] [phone] Micaela Monae P.T. [address] [place] [phone] 07/10/2024 9:30 AM WATER REGISTRAR Appointment Department of Cardiovascular Diseases in [address] [phone] Claire Jimenez MPAS, P.A.-C., P.A. [address] [place] [phone] documented as of this encounter Visit Diagnoses Not on filedocumented in this encounter Care Teams Legal Specialist Relationship Specialty Start Date End Date No Contact, Pcp PCP - General Family Medicine 07/31/19 03/31/24 documented as of this encounter
--- OUTSIDE RECORDS SUMMARY | 2024-04-30 07:05 | XMS_ITS | Encounter Summary ---
Author Organization [facility] Address [address] [place] [address] Care Team Providers Care Spice Blender Name Role Phone No Contact, Pcp Primary Care Provider Unavailabl e Reason for Visit * Outpatient (Routine) - Closed Specialty Diagnoses / Procedures Referred By Lucinda franco Referred To Contact Urology Nanda Fu P.A.-C. [address] [place] [phone] [facility] Referral ID Status Reason Start Date Expiration Date Visits Re quested Visits Authorized [id number] Closed 01/18/2024 07/19/2025 1 1 Encounter Details Date Type Department Care Team (Late st Contact Info) Description 02/08/2024 10:30 AM CDT Office Visit Department of Urology in [place], [place] [address] [place] [phone] Nanda Fu P.A.-Bouchra. [address] [place] [phone] Obstruction Ureter (Primary Dx) Social History Tobacco Use Types Packs/Day Years Used Date Smoking Tobacco: Never Smokeless Tobacco: Never Alcohol Use Standard Drinks/Week Comments Yes 2 (1 standard drink = 0.6 oz pur e alcohol) [facility] Utilities Answer Date Recorded In the past 12 months has th e electric, gas, oil, or water [employer] threatened to shut off services in your [...] often do you attend chur ch or advent services? More than 4 times per year 10/27/2022 Do you belong to any clubs o r organizations such as caodaism groups, unions, fraternal or athletic groups, or [...] Answer Date Recorded PHQ-2 Score 0 10/27/2022 [facility] - Occupational Stress Questionnaire Answer Date [...] living situation today? I have a [facility] place to live 02/03/2024 Education [...] PM CDT documented as of this encounter Progress Notes * Nanda Fu P.A.-C. - 02/08/2024 10:30 AM CDT SUBJECTIVE REFERRAL SOURCE: The patient is being seen in consultation at the request of Nanda Fu P.A.-C. 200 [place] [phone] CHIEF COMPLAINT / REASON FOR VISIT Patient of Dr. Cruz seen on my calendar. Ureteral stricture recheck. HISTORY OF PRESENT ILLNESS Mr. Paz is a pleasant 68 y.o. male who presents today for right ureteral obstruction. He hasa history of elevated PSA. He underwent prostate biopsy as well as stent placement for hydronephrosis November 14, 2022. He had a retrograde pyelogram completed that showed a distal ureteral obstruction. His biopsy showed [place] 3 + 4 adenocarcinoma of the prostate. There was concern for invasion to the bladder. He did meet with Dr. Cody who had recommended radiation therapy given the extent of theprostate cancer. The following portions of the patient's history were reviewed and updated as appropriate: allergies, current medications, family history, medical history, social history, surgical history and problemlist. REVIEW OF SYSTEMS OBJECTIVE PHYSICAL EXAMINATION Constitutional: He is oriented to person, place, and time. Adult male in no acute distress. Neurological: He is alert and oriented to person, place, and time. Psychiatric: He has a normal mood and affect. His behavior is normal. ASSESSMENT / PLAN #1 Ureteral obstruction #2 Prostate cancer I had the pleasure of meeting with Mr. Paz in clinic today. We discussed his procedure in great detail. We discussed risks including bleeding, infection, and risk of damage to surrounding tissue. We discussed risks of anesthesia including heart attack, stroke, blood clots, or . I informed him of the healthcare team, risk of exposure of the healthcare team, and risk of blood transfusion. He is in understanding of these risks. He has declined blood transfusion but has signed consent form for the procedure. We discussed the checklist for the surgical patient. We discussed fasting instructions, medication instructions and report location. Urine culture was negative. I have given xin dose of antibiotics to start tonight. He was cleared by anesthesia. All questions answered at this time. He will call with further questions. Discussed the risks, benefits, alternatives, and the necessity of other members of the healthcare team participating in the procedure. All questions answered and consent given. Nanda Fu P.A.-C. 02/08/2024 10:22 AM CDT documented in this encounter Plan of Treatment Upcoming Encounters Date Type Department Care Team (Latest Contact Info) Description 05/08/2024 4:00 PM CDT Office Visit Department of Family Medicine, [facility], in [address] [place] [phone] Claire Jimenez MPAS, P.A.-C., P.A. [address] [place] [phone] 05/10/2024 11:30 AM CDT Comprehensive Visit Department of Physical Medicine and Rehabilitation in [address] [place] [phone] Claire Jimenez MPAS, P.A.-C., P.A. [address] [place] [phone] Micaela Monae P.T. [address] [place] [phone] 07/10/2024 9:30 AM DUCTFIXING PLUMBER Appointment Department of Cardiovascular Diseases in [address] [place] [phone] Claire Jimenez MPAS, P.A.-C., P.A. [address] [place] [phone] documented as of this encounter Visit Diagnoses Diagnosis Obstruction Ureter- Primary documented in this encounter Care Teams Spice Blender Relationship Specialty Start Date End Date No Contact, Pcp PCP - General Family Medicine 07/31/19 03/31/24 documented as of this encounter
--- OUTSIDE RECORDS SUMMARY | 2024-04-30 07:05 | XMS_ITS | Encounter Summary ---
Author Organization [facility] Address [address] [place] [address] Care Team Providers Care Blade Grinder Name Role Phone No Contact, Pcp Primary Care Provider Unavailabl e Encounter Details Date Type Department Care Team (Late st Contact Info) Description 03/04/2024 Orders Only Department of Radiation Oncology in [place], [place] [address] [place] [phone] Michael Kingsley, TIMOTHY, C.N.P., D.N.P. [address] [place] [phone] Primary Malignant Neoplasm Of Prostate (HCC) (Primary Dx) Social History Tobacco Use Types Packs/Day Years Used Date Smoking Tobacco: Never Smokeless Tobacco: Never Alcohol Use Standard Drinks/Week Comments Yes 2 (1 standard drink = 0.6 oz pur e alcohol) [facility] Utilities Answer Date Recorded In the [...] Answer Date Recorded PHQ-2 Score 0 10/27/2022 [facility] [place] of Occupat ional Health - Occupational Stress [...] your living situation today? I have a [facility] place to live 02/03/2024 Education Answer [...] CDT Office Visit Department of Family Medicine, [facility], in [place], [place] 701 [place] [phone] Claire Jimenez MPAS, P.A.-C., P.A. 701 [place] [phone] 05/10/2024 11:30 AM CDT Comprehensive Visit Department of Physical Medicine and Rehabilitation in [address] [place] [phone] Claire Jimenez MPAS, P.A.-C., P.A. [address] [place] [phone] Micaela Monae P.T. [address] [place] [phone] 07/10/2024 9:30 AM TESTER/LIFT TRUCKER Appointment Department of Cardiovascular Diseases in [address] [place] [phone] Claire Jimenez MPAS, P.A.-C., P.A. [address] [place] [phone] Scheduled Orders Name Type Priority Associated Diagnoses Orde r Schedule PSA (Prostate-Specific Antigen), Diagnostic Lab Routine Primary Malignant Neoplasm Of Prostate (HCC) Expected: 09/04/2024, Expires: 06/04/2025 documented as of this encounter Visit Diagnoses Diagnosis Primary Malignant Neoplasm Of Prostate (HCC)- Primary documented in this encounter Care Teams Blade Grinder Relationship Specialty Start Date End Date No Contact, Pcp PCP - General Family Medicine 07/31/19 03/31/24 documented as of this encounter
--- OUTSIDE RECORDS SUMMARY | 2024-04-30 07:05 | XMS_ITS | Encounter Summary ---
Author Organization [facility] Address [address] [place] [address] Care Team Providers Care Factory Focus Technician Name Role Phone No Contact, Pcp Primary Care Provider Unavailabl e Encounter Details Date Type Department Care Team (Latest Contact Info) Description 02/09/2024 12:20 PM CDT - 02/09/2024 4:32 PM CDT Hospital Encounter Outpatient Procedure Center in [place], [place] [address] [place] [phone] Sylvia Toscano D.O. [address] [place] [phone] Discharge Disposition: Home or Self Care Social History Tobacco Use Types Packs/Day Years Used Date Smoking Tobacco: Never Smokeless Tobacco: Never Alcohol Use Standard Drinks/Week Comments Yes 2 (1 standard drink = 0.6 oz pur e alcohol) [facility] Utilities Answer Date Recorded In the past [...] How often do you attend chur or advent services? More than 4 times per year 10/27/2022 Do you belong to any clubs o r organizations such as congregational groups, unions, fraternal or athletic groups, or [...] Answer Date Recorded PHQ-2 Score 0 10/27/2022 [facility] [place] of Occupat ional Health - Occupational Stress [...] your living situation today? I have a [facility] place to live 02/03/2024 Education Answer Date [...] Sign Reading Time Taken Comments Blood Pressure 132/84 02/09/2024 4:00 PM CDT Pulse 86 02/09/2024 4:10 PM CDT Temperature 36.5 ??C (97.7 ??F) 02/09/2024 2:54 PM CD T Respiratory Rate 19 02/09/2024 [...] each by mouth daily. Med Name: RAMOS ERYNA cefdinir (OMNICEF) 300 mg capsule Take 1 [...] Hydronephrosis With Ureteral Stricture Not Elsewhere Classified Financial Business Analyst A educational program assistant actively participated and was necessary for one [...] The wire was replaced, and a 7 Bruneian by 26 cm Imajin stent was deployed [...] CDT Office Visit Department of Family Medicine, [facility], in [address] [place] [phone] Claire Jimenez MPAS, P.A.-C., P.A. [address] [place] [phone] 05/10/2024 11:30 AM CDT Comprehensive Visit Department of Physical Medicine and Rehabilitation in [address] [place] [phone] Claire Jimenez MPAS, P.A.-C., P.A. [address] [place] [phone] Micaela Monae P.T. [address] [place] [phone] 07/10/2024 9:30 AM BALL ASSEMBLER Appointment Department of Cardiovascular Diseases in [address] [place] [phone] Claire Jimenez MPAS, P.A.-C., P.A. [address] [place] [phone] documented as of this encounter Procedures Procedure [...] Elsewhere Classified Special Needs Nanda Fu Primary. documented in this encounter Results * FL Fluoro Less Than 1 Hour (02/09/2024 3:21 PM CDT) Narrative [id number] - 02/09/2024 3:22 PM CDT This exam does not require a radiologist review or interpretation. Please refer to the patient's medical record on this date for clinical details. Nanda Fu P.A.-C. IMSimone FLUOROSCOPY PROCEDURES [id number] NA documented in this encounter Visit Diagnoses Diagnosis Hydronephrosis With Ureteral Stricture Not Elsewhere Classified- Primary documented in this encounter Admitting Diagnoses Diagnosis [...] and gums. Ensure swab is not oversaturated. Lactated Ringer's 20 mL/hr, intravenous, Continuous, Starting [...] 1409 (Given - Provid er: Niya Gastelum, COKE LOADER, LIGHT COIL WINDER) lidocaine HCL 2 % topical jelly 1 [...] (Rate/Dose Verify - Provider: Niya Gastelum APRN, JC)1440 (Paused - Provider: Niya Gastelum APRN, CRNA - Comment: Switch to gravity)1441 (New Bag - Provider: Niya Gastelum APRN, JC)1627 (Stopped - Provider: Lourdes Gregory R.N.) PRN [...] injection documented in this encounter Care Teams Factory Focus Technician Relationship Specialty Start Date End Date No Contact, Pcp PCP - General Family Medicine 07/31/19 03/31/24 documented as of this encounter
--- OUTSIDE RECORDS SUMMARY | 2024-04-30 07:05 | XMS_ITS | Encounter Summary ---
Author Organization [facility] Address [address] [place] [address] Care Team Providers Care Imcu Nurse Name Role Phone No Contact, Pcp Primary Care Provider Unavailabl e Encounter Details Date Type Department Care Team (Latest Contact Info) Description 03/01/2024 9:12 AM CDT - 03/01/2024 11:59 PM CDT Hospital Encounter Department of Laboratory Medicine in [place], [place] [address] [place] [phone] Michael Kingsley, TIMOTHY, C.N.P., D.N.P. [address] [place] [phone] Primary Malignant Neoplasm Of Prostate (HCC) Discharge Disposition: Home or Self Care Social History Tobacco Use Types Packs/Day Years Used Date Smoking Tobacco: Never Smokeless Tobacco: Never Alcohol Use Standard Drinks/Week Comments Yes 2 (1 standard drink = 0.6 oz pur e alcohol) [facility] Utilities Answer Date Recorded In the past [...] often do you attend chur ch or voodoo services? More than 4 times per year 10/27/2022 Do you belong to any clubs o r organizations such as islam groups, unions, fraternal or athletic groups, or [...] Answer Date Recorded PHQ-2 Score 0 10/27/2022 [facility] [place] of Occupat ional Health - Occupational Stress [...] your living situation today? I have a [facility] place to live 02/03/2024 Education Answer [...] CDT Office Visit Department of Family Medicine, [facility], in [address] [phone] Claire Jimenez MPAS, P.A.-C., P.A. [address] [place] [phone] 05/10/2024 11:30 AM CDT Comprehensive Visit Department of Physical Medicine and Rehabilitation in [address] [phone] Claire Jimenez MPAS, P.A.-C., P.A. [address] [place] [phone] Micaela Monae P.T. [address] [place] [phone] 07/10/2024 9:30 AM EARLY CHILDHOOD SPECIAL EDUCATOR Appointment Department of Cardiovascular Diseases in [address] [phone] Claire Jimenez MPAS, P.A.-Demetri, P.A. [address] [facility] [place], [place] [phone] documented as of this encounter Procedures Procedure Name Priority Date/Time Associated Diagnosis Comments PROSTATE-SPECIFIC AG (PSA) DIAGNOSTIC, S Routine 03/01/2024 9:17 AM CDT Primary Malignant Neoplasm Of Prostate (HCC) documented in this encounter Results * PSA (Prostate-Specific Antigen), Diagnostic (03/01/2024 9:17 AM CDT) Prostate-Specific Ag <0.10 <=6.5 ng/mL 03/01/2024 9:59 AM CDT RDWG Comment: ----ADDITIONAL INFORMATION---- The testing method is an electrochemiluminescence assay manufactured by [employer] and performed on the Modular or Tacos system. Values obtained with different assay methods or kits may be different and cannot be used interchangeably. Test results cannot be interpreted as absolute evidence for the presence or absence of malignant disease. Blood (Blood, Venous) 03/01/2024 9:17 AM CDT 03/01/2024 9:27 AM CDT Michael Kingsley APRN C.N.P., D.N.P. LAB B LOOD ADD-ON [facility] [address] [place] [address], [facility] RDWG [facility] in [place] [address] [place] [phone] documented in this encounter Visit Diagnoses Diagnosis Primary Malignant Neoplasm Of Prostate (HCC) documented in this encounter Care Teams Imcu Nurse Relationship Specialty Start Date End Date No Contact, Pcp PCP - General Family Medicine 07/31/19 03/31/24 documented as of this encounter
--- OUTSIDE RECORDS SUMMARY | 2024-04-30 07:05 | XMS_ITS | Encounter Summary ---
Author Organization [facility] Address [address] [place] [address] Care Team Providers Care Crew Clerk Name Role Phone No Contact, Pcp Primary Care Provider Unavailabl e Encounter Details Date Type Department Care Team (Late st Contact Info) Description 03/04/2024 Orders Only Department of Radiation Oncology in [place], [place] [address] [place] [phone] Michael Kingsley, TIMOTHY, C.N.P., D.N.P. [address] [place] [address] Primary Malignant Neoplasm Of Prostate (HCC) (Primary Dx) Social History Tobacco Use Types Packs/Day Years Used Date Smoking Tobacco: Never Smokeless Tobacco: Never Alcohol Use Standard Drinks/Week Comments Yes 2 (1 standard drink = 0.6 oz pur e alcohol) [facility] Utilities Answer Date Recorded In the [...] How often do you attend chur or sikhism services? More than 4 times per year 10/27/2022 Do you belong to any clubs o r organizations such as lutheran groups, unions, fraternal or athletic groups, or [...] Answer Date Recorded PHQ-2 Score 0 10/27/2022 [facility] [place] of Occupat ional Health - Occupational Stress [...] your living situation today? I have a [facility] place to live 02/03/2024 Education Answer Date [...] Office Visit Department of Family Medicine, [facility], in [place], [place] [address] [place] [address] Claire Jimenez MPAS, P.A.-C., P.A. 701 [place] [phone] 05/10/2024 11:30 AM CDT Comprehensive Visit Department of Physical Medicine and Rehabilitation in [address] [place] [phone] Claire Jimenez MPAS, P.A.-C., P.A. [address] [place] [phone] Micaela oMnae P.T. [address] [place] [phone] 07/10/2024 9:30 AM GRANITE WORKER Appointment Department of Cardiovascular Diseases in [address] [phone] Claire Jimenez MPAS, P.A.-C., P.A. [address] [place] [phone] documented as of this encounter Visit Diagnoses Diagnosis Primary Malignant Neoplasm Of Prostate (HCC)- Primary documented in this encounter Care Teams Crew Clerk Relationship Specialty Start Date End Date No Contact, Pcp PCP - General Family Medicine 07/31/19 03/31/24 documented as of this encounter
--- OUTSIDE RECORDS SUMMARY | 2024-04-30 07:05 | XMS_ITS | Encounter Summary ---
Author Organization [facility] Address [address] [place] [address] Care Team Providers Care Review Coordinator Name Role Phone No Contact, Pcp Primary Care Provider Unavailabl e Encounter Details Date Type Department Care Team (Late st Contact Info) Description 02/12/2024 Orders Only Department of Urology in [place], [place] [address] [place] [phone] Ashlee Fitzpatrick, RDavidN. [address] [place] [phone] Social History Tobacco Use Types Packs/Day Years Used Date Smoking Tobacco: Never Smokeless Tobacco: Never Alcohol Use Standard Drinks/Week Comments Yes 2 (1 standard drink = 0.6 oz pur e alcohol) [facility] Utilities Answer Date Recorded In the past 12 months has e [employer], gas, oil, or water [employer] threatened to shut off services in your [...] often do you attend chur ch or sikhism services? More than 4 times [...] Answer Date Recorded PHQ-2 Score 0 10/27/2022 [facility] of Occupat ional Health - [...] living situation today? I have a [facility] place to live 02/03/2024 Education Answer [...] CDT Office Visit Department of Family Medicine, [facility], in [place], [place] [address] [place] [phone] Claire Jimenez, CRISTOBALS, P.A.-C., P.A. [address] [place] [phone] 05/10/2024 11:30 AM CDT Comprehensive Visit Department of Physical Medicine and Rehabilitation in [place], [place] [address] [place] [address], [place] [phone] Claire Jimenez MPAS, P.A.-C., P.A. [address] [place] [phone] Micaela Monae P.T. [address] [place] [phone] 07/10/2024 9:30 AM BRAILLE TYPIST Appointment Department of Cardiovascular Diseases in [address] [phone] Claire Jimenez MPAS, P.A.-C., P.A. [address] [place] [phone] documented as of this encounter Visit Diagnoses Not on filedocumented in this encounter Care Teams Review Coordinator Relationship Specialty Start Date End Date No Contact, Pcp PCP - General Family Medicine 07/31/19 03/31/24 documented as of this encounter
[2024-04-30] MEDS: CELECOXIB 200 MG CAPSULE PO (07:30)
[2024-04-30] MEDS: OXYCODONE (CR) 10 MG TAB.ER.12H PO (07:30)
[2024-04-30] MEDS: ACETAMINOPHEN 500 MG TABLET 1000 MG PO (07:30)
[2024-04-30] MEDS: SODIUM CHLORIDE 0.9 % (FLUSH) 10 ML SYRINGE IVF (08:00)
[2024-04-30] MEDS: LACTATED RINGERS 1000 ML 1,000 ML 100 ML IV ×2 (08:00→09:08)
--- NOTE | 2024-04-30 08:24 | SUR.PREOP ---
TIME?OUT:?0825 PT/RN/MDA?VERIFICATION?OF?SURGICAL?SITE,?PROCEDURE,?AND?CONSENT OBTAINED?PRIOR?TO?INVASIVE?PROCEDURE.
[2024-04-30] MEDS: MIDAZOLAM HCL 1 MG/ML inj IVP (08:25)
[2024-04-30] MEDS: fentaNYL 100 MCG/2 ML inj IVP (08:25)
--- NOTE | 2024-04-30 08:45 | CRLHL7_ITS ---
For Patients: As a result of the Cures Act, medical imaging exams and procedure reports are released immediately into your electronic medical record. You may view this report before your referring provider. If you have questions, please contact your health care provider. INDICATION: Right total hip arthroplasty. TECHNIQUE: Single spot image of the right hip submitted. 10.1 seconds fluoro time provided. No radiologist involvement. FINDINGS: Image taken during surgery. Dictated by Piotr aGrcia MD @ 05/01/2024 10:13:29 AM (Electronically Signed)
[2024-04-30] MEDS: CEFAZOLIN 2 GM INJ IVP (09:01)
[2024-04-30] MEDS: TRANEXAMIC ACID 100 MG/ML INJ 1000 MG IV (09:09)
[2024-04-30] MEDS: LACTATED RINGERS 1000 ML 1,000 ML 35 ML IV (09:47)
--- NOTE | 2024-04-30 10:13 | P.NB_ITS ---
Nerve Block Nerve Block Time Seen by Provider: 08:00 Date Seen: 04/30/24 Type of block requested by surgeon for post-operative analgesia: KATHERIN/LFCN Side: right Time out performed: Yes Verification of patient name: Yes Verification of date of : Yes Site marking: site marked Name of person performing procedure: Raghavendra Martinez Continuous monitoring Was continuous monitoring of O2 sat, B/P, grocery associate, recorded every 15 minutes?: Yes Procedure Checklist: sterile prep, needles and gloves Ultrasound guided. Images saved: Yes Medications given in 5ml increments after negative aspiration: Ropivicaine %: 0.5 mL: 30 Needle gauge: 21 Decadron (mg): 10 Precedex (mcg): 25 Patient tolerated procedure well: Yes Additional comments: Injected in 5ml increments after negative aspiration. Block Charges Block Charge (with Pro Fee): Other Periph Nerve Block Use of Ultrasound Machine for Block: Yes- US Guidance/pain block
[2024-04-30] MEDS: BUPIVACAINE 0.25% 30 ML INJECTION (10:40)
--- NOTE | 2024-04-30 11:15 | PM.ORPRC ---
Procedure Note Date of procedure: 04/30/24 Procedure: PREOPERATIVE DIAGNOSIS: Right hip retained hardware, posttraumatic arthritis POSTOPERATIVE DIAGNOSIS: Right hip retained hardware, posttraumatic arthritis NAME OF OPERATION: Right hip partial hardware removal deep SURGEON: Yoni Lutz MD PLAYER DEVELOPMENT EXECUTIVE: RADHA Collins, Geovanna Felix PA-C ANESTHESIA: General ESTIMATED BLOOD LOSS: 50 mL COMPLICATIONS: None SPECIMENS: None DRAINS: None PREOPERATIVE ANTIBIOTICS: Ancef 3 g INDICATIONS: The patient is a 69-year-old male who sustained an intertrochanteric fracture in 2007 treated with a dynamic hip screw. He has gone on to develop posttraumatic arthritis. He presents today for hardware removal and total hip arthroplasty.. The risks, benefits and expected outcomes were discussed in detail. These included but were not limited to: Infection, bleeding, injury to blood vessel or nerve, venous thromboembolism. All questions were answered to their satisfaction. Use of an refinery operator assistant was necessary for patient positioning and safety, soft tissue retraction and closure, dressing application, and transfer of the patient to and from the hospital bed to the fracture table. PROCEDURE: General anesthesia was administered. The patient was placed supine on the on the Newman table. The lower extremity was prepped and draped in the usual sterile fashion. The previously placed incision was utilized. Subcutaneous dissection was taken with electrocautery to the ITB band. The ITB was divided in line with its fibers. The fascia over the vastus lateralis was sharply divided. Blunt dissection was carried to the plate which was exposed with a Abdullahi elevator. There was bone overgrowing the anterior edge of the plate which was resected with the osteotome. We removed the 2 screws in the shaft fragment uneventfully. We then went to remove the lag screw. In doing so we realized that the screwdriver that was available was not the correct one for this implant. It was felt that the implant, based on x-ray, was a standard Weston captured hip screw. The one in the patient is a newer version, that uses a specifically designed screwdriver that was unavailable for today's case. Therefore, we elected to discontinue the case, obtain the correct screwdriver and come back a different day. The wound was irrigated with normal saline. The wound was infiltrated with 0.25% Marcaine without epinephrine. The ITB band was closed with an 0 Vicryl. Subcutaneous tissues with a 2-0 Vicryl, skin with a 3-0 Monocryl and glue. The patient tolerated the procedure well. There were no apparent complications. They were carefully transferred to the hospital bed and taken to the postanesthesia care unit in satisfactory condition. PLAN: The patient will be discharged home. He may weightbear as tolerates. He will follow-up in the office next week for wound check.
--- NOTE | 2024-04-30 12:46 | W.ANESCHARGE ---
Anesthesia Charges Start Date/Time Anesthesia Start Date: 04/30/24 Anesthesia Start Time: 08:37 Stop Date/Time Anesthesia Stop Date: 04/30/24 Anesthesia Stop Time: 11:06
[2024-04-30] MEDS: OxyCODONE/APAP 5-325 TABLET 1 TAB PO (13:10)
== END 2024-04-30 13:20 | disposition home or self-care (01) ==
LOC: OR 07:01 → MEDSURG 07:08 → OR 11:14
PROVIDERS: Visit Provider Orthopaedic Surgery
PROC: (CPT 27130; principal; 2024-04-30 08:45)
DX: M16.51 Unilateral post-traumatic osteoarthritis, right hip (principal); S72.141S Displaced intertrochanteric fracture of right femur, sequela; T84.84XA Pain due to internal orthopedic prosthetic devices, implants and grafts, initial encounter; R73.03 Prediabetes; G89.18 Other acute postprocedural pain
CPT/HCPCS: 20680; 01210; 36415; 64450; 73501; 76942; 86850; 86900; 86901; A9270; J0330; J0665; J0690; J1100; J1630; J2250; J2371; J2405; J2704; J2795; J3010; J3490; J7120

== ENCOUNTER 2024-05-15 09:49 | Day surgery (SDC) | payer MEDICARE, BC, SELFPAY ==
[2024-05-15] VITALS (19 sets, daily range): BP systolic 105–144; BP diastolic 55–85; PULSE 71–92; RESP 10–18; TEMP 36.2–37.3; O2SAT 7–98; BMI 38.0
--- OUTSIDE RECORDS SUMMARY | 2024-05-15 09:53 | XMS_ITS ---
Author Organization [facility] Address [address] [place] [address] Care Team Providers Care Tick Eradicator Name Role Phone Unavailable Unavailable Unavailable Surgery Details Not on file Complications Check Surgery Details section. Procedure Estimated Blood Loss Check Surgery Details section. Procedure Findings Check Surgery Details section. Procedure Specimens Taken Check Surgery Details section.
--- OUTSIDE RECORDS SUMMARY | 2024-05-15 09:53 | XMS_ITS | Encounter Summary ---
Author Organization [facility] Address [address] [place] [address] Care Team Providers Care Stagecraft Professor Name Role Phone Claire Jimenez, PDrea.-Bouchra., P.A. Primary Care Provider Encounter Details Date Type Department Care Team (Late st Contact Info) Description 05/08/2024 Orders Only Department of Pediatrics in [place], [place] [address] [place] [phone] Shania Christensen R.N. [address] [place] [phone] Social History Tobacco Use Types Packs/Day Years Used Date Smoking Tobacco: Never Smokeless Tobacco: Never Alcohol Use Standard Drinks/Week Comments Yes 2 (1 standard drink = 0.6 oz pur e alcohol) [facility] Utilities Answer Date Recorded In the past 12 months has e electric, gas, oil, or water company threatened to shut off services in your home? No 02/03/2024 Humiliation, Afraid, Rape, and Kick questionnair e Answer Date Recorded Within the last year, have y ou been afraid of your partner or ex-partner? No 05/08/2024 Within the last year, have y ou been humiliated or emotionally abused in other ways by your partner or ex-partner? No Within the last year, have y ou been kicked, hit, slapped, or otherwise physically hurt by your partner or ex-partner? No 05/08/2024 Within the last year, have y ou been raped or forced to have any kind of sexual activity by your partner or ex-partner? No 05/08/2024 Social Connection and Isolat ion Panel [NHANES] [...] any clubs o r organizations such as mormonism groups, unions, fraternal or athletic groups, or [...] PHQ-2 Answer Date Recorded PHQ-2 Score 0 05/01/2024 [facility] of Occupat ional Health - Occupational Stress [...] Department Care Team (Latest Contact Info) Description 05/24/2024 10:00 AM CDT Comprehensive Visit Department of Physical Medicine and Rehabilitation in [place], [place] [address] [place] [phone] Racheal Terry APRN, C.N.P., D.N.P. [address] [place] [phone] Jazmyne Venegas P.T. [address] [place] [phone] 06/25/2024 9:10 AM CDT Appointment Department of Laboratory Medicine in [address] [phone] Laly Carrasco, TIMOTHY, C.N.P., D.N.P. [address] [place] [phone] 07/09/2024 8:00 AM JAVA ARCHITECT Hospital Encounter Outpatient Procedure Center in [place], [place] [address] [place] [phone] Eric Pineda M.D. [address] [place] [phone] 07/09/2024 8:00 AM JAVA ARCHITECT - 07/09/2024 8:54 AM JAVA ARCHITECT Surgery Outpatient Procedure Center in [place], [place] [address] [place] [phone] Eric Pineda M.D. [address] [place] [phone] EXCHANGE URETERAL STENT Scheduled Procedures Name Priority Associated Diagnoses Date/Ti me EXCHANGE URETERAL STENT Obstruction Ureter 07/09/2024 8:00 AM JAVA ARCHITECT documented as of this encounter Visit Diagnoses Not on filedocumented in this encounter Care Teams Stagecraft Professor Relationship Specialty Start Date End Date Claire Jimenez MPAS, P.A.-C., P.A. [address] [place] [phone] PCP - General Family Medicine 04/01/24 documented as of this encounter
--- OUTSIDE RECORDS SUMMARY | 2024-05-15 09:53 | XMS_ITS | Encounter Summary ---
Author Organization [facility] Address [address] [place] [address] Care Team Providers Care Water Resources Technical Officer Name Role Phone Claire Jimenez P.A.-C., P.A. Primary Care Provider Reason for Visit * Reason Onset Date Comments Communication 04/29/2024 Encounter Details Date Type Department Care Team (Late st Contact Info) Description 04/29/2024 Clinical Communication Department of Family Medicine, [facility], in [place], [place] [address] [place] [phone] Claire Jimenez MPAS, P.A.-C., P.A. [address] [place] [phone] Communication Social History Tobacco Use Types Packs/Day Years Used Date Smoking Tobacco: Never Smokeless Tobacco: Never Alcohol Use Standard Drinks/Week Comments Yes 2 (1 standard drink = 0.6 oz pur e alcohol) [facility] Utilities Answer Date Recorded In the [...] often do you attend chur ch or synagogue services? More than 4 times per year 10/27/2022 Do you belong to any clubs o r organizations such as anabaptist groups, unions, fraternal or athletic groups, or [...] Answer Date Recorded PHQ-2 Score 2 04/09/2024 [facility] of Occupat ional Health - Occupational Stress [...] your living situation today? I have a [facility] place to live 02/03/2024 Education [...] Department of Physical Medicine and Rehabilitation in [address] [phone] Racheal Terry APRN, C.N.P., D.N.P. [address] [place] [phone] Jazmyne Venegas P.T. [address] [place] [phone] 06/25/2024 9:10 AM CDT Appointment Department of Laboratory Medicine in [address] [phone] Laly Carrasco APRN, C.N.P., D.N.P. [address] [place] [phone] 07/09/2024 8:00 AM AIRFIELD DEFENCE GUARD Hospital Encounter Outpatient Procedure Center in [place], [place] [address] [place] [phone] Eric Pineda M.D. [address] [place] [phone] 07/09/2024 8:00 AM AIRFIELD DEFENCE GUARD - 07/09/2024 8:54 AM AIRFIELD DEFENCE GUARD Surgery Outpatient Procedure Center in [place], [place] [address] [place] [phone] Eric Pineda M.D. [address] [place] [phone] EXCHANGE URETERAL STENT Scheduled Procedures Name Priority Associated Diagnoses Date/Ti me EXCHANGE URETERAL STENT Obstruction Ureter 07/09/2024 8:00 AM AIRFIELD DEFENCE GUARD documented as of this encounter Visit Diagnoses Not on filedocumented in this encounter Care Teams Water Resources Technical Officer Relationship Specialty Start Date End Date Claire Jimenez MPAS, PGarrick-C., P.A. [address] [place] [phone] PCP - General Family Medicine 04/01/24 documented as of this encounter
--- OUTSIDE RECORDS SUMMARY | 2024-05-15 09:53 | XMS_ITS ---
Author Organization [facility] Address [address] [place] [address] Care Team Providers Care Drywall Metal Stud Worker Name Role Phone Claire Jimenez, P.A.-C., P.A. Primary Care Provider Active Problems Problem Noted Date Diagnosed Date Presence Of Other Specified Functional Implants 05/08/2024 Stenosis Aortic Valve Acquired 04/29/2024 Overview (04/29/2024): 04/2024: new murmur heard on exam, echo confirmed mild aortic stenosis. Repeat echo in 3 years to monitor Hyperlipidemia 04/16/2024 PreDiabetes 04/16/2024 Gout 08/15/2023 Primary Osteoarthritis Hip Right 08/15/2023 Apnea Sleep Obstructive 08/01/2023 Obstruction Ureter 02/15/2023 Hydronephrosis With Ureteral Stricture Not Elsewhere Classified 02/14/2023 Primary Malignant Neoplasm Of Prostate Cancer Staging:Clinical stage from 11/14/2022:Stage IIIB(cT4, cN0, cM0, PSA: 8.4, Grade Group: 2) - Signed by Michael Kingsley APRN, C.N.P., D.N.P. on 12/12/2022 Screening Cancer Colon 05/03/2022 Overview (05/03/2022): Added automatically from request for surgery [id number] Current Oncology Plans No current plan information found. Past Plans Hem/Onc Therapy Plan 1 Plan Name Start Date Discontinue Date Treatment Medications Discontinue Reason Plan Provider Leuprolide Acetate Every 24 Weeks 12/13/2022 03/24/2024 No medications scheduled. Amendment Change Michael Kingsley, TIMOTHY, C.N.P., D.N.P. Radiation Treatments * Plan Last Treated On Elapsed Days Fractions Treated Prescribed Fraction Dose Prescribed Total Dose [id number] 02 04/04/2023 36 26 of 26 270 cGy 7,020 cGy Reference Point Last Treated On Elapsed Days Session Dose Total Dose [id number] 04/04/2023 36 270 cGy 7,020 cGy Lifetime Dose Tracking * Chemical Lifetime Dose Automatic Entry Manual Entr y Radiation 33.8 mGy 33.8 mGy 0 mGy Fluoro Time 3.706 minutes 3.706 minutes 0 minutes Resolved Problems Problem Noted Date Diagnosed Date Resolved Date Tumor Prostate 10/27/2022 12/12/2022 Overview (10/27/2022): Added automatically from request for surgery [id number]
--- OUTSIDE RECORDS SUMMARY | 2024-05-15 09:53 | XMS_ITS | Clinical Summary ---
Author Organization [facility] Address [address] [place] [address] Care Team Providers Care Terminal Block Assembler Name Role Phone Claire Jimenez, P.A.-C., P.A. Primary Care Provider Source Comments Patient records contain information from all sites at [facility]. For routine questions regarding patient records, call [phone] during business hours, M-F 8:00 AM - 5:00 PM Central Time. Record requests for emergency care only can be directed to [phone] at any time.[facility] Allergies No known active allergies Medications [...] mouth daily. 90 tablet 3 04/16/2024 Active oxyCODONE-acetamin ophen (Percocet) 5-325 mg per tablet Take 1-2 tablets by mouth. Every 4-6 hours for pain 04/30/2024 05/08/2024 Discontinued (Therapy completed) albuterol 90 mcg/actuation inhaler Inhale 2 puffs. 03/25/2024 05/08/2024 Discontinued (Therapy completed) Active Problems Problem Noted [...] (05/03/2022): Added automatically from request for surgery [id number] Resolved Problems Problem Noted Date Diagnosed Date Resolved Date Tumor Prostate 10/27/2022 12/12/2022 Overview (10/27/2022): Added automatically from request for surgery [id number] Encounters Date Type Department Care Team Description 05/10/2024 Documentation Preoperative Evaluation Center in [place], [place] [address] [place] [address] Chitra Bateman APRN, C.N.P., M.S.N. 05/08/2024 4:00 PM CDT Telemedicine Department of Family Medicine, [facility], in [address] [place] [phone] Claire Jimenez MPAS, P.A.-C., P.A. Padmini Myrick, Key. Annual Medicare Examination Return (Primary Dx) Discharge Disposition: Home or Self Care 05/08/2024 Orders Only Department of Pediatrics in [address] [phone] Shania Christensen R.N. 04/29/2024 Clinical Communication Department of [facility], in [address] [phone] Claire Jiemnez MPAS, P.A.-C., P.A. Communication 04/25/2024 Clinical Communication Department of [facility], [facility], [address] [phone] Claire Jimenez MPAS, P.A.-C., P.A. Results (ECG) 04/19/2024 Clinical Communication Department of [facility], [facility], in [address] [phone] Claire Jimenez MPAS, P.A.-C., P.A. 04/17/2024 Clinical Communication Department of [facility], in [address] [phone] Laura Segundo, R.N. Follow-up Orders (Pre-op for Right Hip Total Arthroplasty) 04/16/2024 Clinical Communication Department of [facility], [facility], in [address] [phone] Claire Jimenez MPAS, P.A.-C., P.A. Order Request 04/15/2024 4:40 PM CDT - 04/15/2024 11:59 PM CDT Hospital Encounter Department of Radiology in [address] [phone] Claire Jimenez MPAS, P.A.-C., P.A. Preoperative Exam Discharge Disposition: Home or Self Care 04/15/2024 4:25 PM CDT - 04/15/2024 4:39 PM CDT Hospital Encounter Department of Laboratory Medicine in [address] [phone] Claire Jimenez MPAS, P.A.-C., P.A. Preoperative Exam; Screening Lipid; Encounter For Screening For Cardiovascular Disorders; Screening Examination Diabetes Mellitus Discharge Disposition: Home or Self Care 04/15/2024 2:15 PM CDT Office Visit Department of Family Medicine, [facility], in [address] [phone] Claire Jimenez MPAS, P.A.-C., P.A. Preoperative Exam (Primary Dx); Primary Osteoarthritis Hip Right; Apnea Sleep Obstructive; Murmur Heart; Primary Malignant Neoplasm Of Prostate (HCC); Hyperlipidemia; Encounter For Screening For Cardiovascular Disorders; PreDiabetes; Stenosis Aortic Valve Acquired Discharge Disposition: Home or Self Care 04/09/2024 Orders Only [facility] Claire Jimenez MPAS, P.A.-CDavid, P.A. 03/24/2024 Orders Only Department of Radiation Oncology in [place], [place] [address] [place] [address] Demetri Dick M.D. 03/04/2024 Orders Only Department of Radiation Oncology in [place], [place] [address] [place] [address] Michael Kingsley APRN, C.N.P., D.N.P. Primary Malignant Neoplasm Of Prostate (HCC) (Primary Dx) 03/04/2024 Orders Only Department of Radiation Oncology in [place], [place] [address] [place] [address] Michael Kingsley APRN C.N.P., D.N.P. Primary Malignant Neoplasm Of Prostate (HCC) (Primary Dx) 03/01/2024 9:12 AM CDT - 03/01/2024 11:59 PM CDT Hospital Encounter Department of Laboratory Medicine in [place], [place] [address] Michael Kingsley APRN C.N.P., D.N.P. Primary Malignant Neoplasm Of Prostate (HCC) Discharge Disposition: Home or Self Care 02/29/2024 Orders Only Department of Radiation Oncology in [place], [place] [address] [place] [address] Michael Kingsley APRN, C.N.P., D.N.P. Primary Malignant Neoplasm Of Prostate (HCC) (Primary Dx) 02/27/2024 Clinical Communication Department of Radiation Oncology in [place], [place] [address] [place] [address] Michael Kingsley APRN, C.N.P., D.N.P. from Last 3 Months Immunizations Name Administration Dates Next Due Influenza, Quadrivalent, Adjuvanted, Preservativ e Free 05/19/2021 Tdap 08/13/2012 Family History Medical History Relation [...] drink = 0.6 oz pur e alcohol) [facility] Utilities Answer Date Recorded In the past 12 months has f f [facility] [employer], [employer], or water User [employer] threatened to shut off services in your [...] How often do you attend chur or religion services? More than 4 times per year [...] Answer Date Recorded PHQ-2 Score 0 05/01/2024 [facility] of Occupat ional Health - Occupational Stress [...] your living situation today? I have a [facility] place to live 02/03/2024 Education Answer [...] of Physical Medicine and Rehabilitation in [address] [phone] Racheal Terry APRN, C.N.P., D.N.P. [address] [place] [phone] Jazmyne Venegas P.T. [address] [place] [phone] 06/25/2024 9:10 AM CDT Appointment Department of Laboratory Medicine in [address] [phone] Laly Carrasco APRN, C.N.P., D.N.P. [address] [place] [phone] 07/09/2024 8:00 AM [facility] Hospital Encounter Outpatient Procedure Center in [place], [place] [address] [place] [phone] Eric Pineda M.D. [address] [place] [phone] 07/09/2024 8:00 AM WEBBING SUPERVISOR - 07/09/2024 8:54 AM [facility] Surgery Outpatient Procedure Center in [place], [place] [address] [place] [phone] Eric Pineda M.D. [address] [place] [phone] EXCHANGE URETERAL STENT Scheduled Procedures Name Priority Associated Diagnoses Date/Ti me EXCHANGE URETERAL STENT Obstruction Ureter 07/09/2024 8:00 AM WEBBING SUPERVISOR Health Maintenance Due Date Last Done Comments CT Colonography 1955 Cologuard 1955 Hepatitis C Screening 1955 Pneumococcal vaccine (65+ years) (1 of 2 - PCV) 02/26/1960 Zoster Vaccines (1 of 2) 1973 DTaP,Tdap,and Td Vaccines (2 - Td or Tdap) 08/13/2022 08/13/2012 COVID-19 Vaccine (4 - season) 2024 08/12/2021, 11/04/2020, 09/24/2020 Influenza Vaccine (#1) 2024 05/19/2021 Fasting Glucose for Diabetes Screening 04/15/2025 04/15/2024, 04/15/2024, 08/11/2023, Additional history exists Visit: Annual, age 65+ (or Medicare and <65) 04/15/2025 04/15/2024 Visit: Medicare Annual Wellness 05/09/2025 05/08/2024 Colonoscopy 07/21/2027 07/21/2022 Colorectal Cancer Surveillance 07/21/2027 Lipid (Cholesterol) Screening 04/15/2029 04/15/2024, 05/05/2022 Fall Risk Screen (Annual) Completed 02/09/2024 Depression Screening (Annual PHQ-2) Completed 05/08/2024, 05/01/2024 HPV Vaccines Aged Out No longer eligi ble based on patient's age to complete this topic Medical Devices Implanted Type Area Woodwind Instrument Repairer Device Identifier Shelf Expiration Date Model / Serial / Lot Hardware E.G. Pins/Screws/ Rods Hardware e.g. pins/screws /rods Right: Hip Marker Tissue [employer] Kv 1x5 - [id number] Implanted:Qt y: 4 on 02/09/2023 by Mayra Rodriguez M.D. at [facility] Imaging Marker Circumferen tial: Prostate [facility] [id number] 07/14/2027 [id number] / / [id number] Imj W/O Gw 7fx26 - [id number] Implanted:Qt y: 1 on 02/09/2024 by Sola Perez M.D., M.S. at [facility] Ureteral Stent Right: Ureter Coloplast [id number] 06/27/2025 [facility] / [id number] Explanted Type Area Woodwind Instrument Repairer Device Identifier Shelf Expiration Date Model / Serial / Lot Stnt Uret Inl 6fx26 - [id number] Implanted:Qty : 1 on 11/14/2022 by Sylvia Toscano D.O. at [facility] Explanted:Qty : 1 on 02/21/2023 by Sarah Hernandez M.D. at [facility] Ureteral Stent Right: Ureter [employer] [id number] 04/19/2027 [id number] / / [id number] Stnt Uret Psh Imj W/O Gw 6fx26 - [id number] Implanted:Qty : 1 on 02/21/2023 by Sarah Hernandez M.D. at [facility] Explanted:Qty : 1 on 09/07/2023 by Sia Duque M.D. at [facility] Ureteral Stent Right: Ureter [employer]oplast [id number] 09/28/2024 [facility] [id number] Stnt Uret Psh Imj W/O Gw 6fx26 - [id number] Implanted:Qty : 1 on 09/07/2023 by Sia Duque M.D. at [facility] Explanted:Qty : 1 on 02/09/2024 by Sola Perez M.D., M.S. at [facility] Ureteral Stent Right: Ureter Coloplast [id number] 10/05/2024 [facility] / [id number] Procedures Procedure Name Priority Date/Time Associated Diagnosis [...] CDT Primary Malignant Neoplasm Of Prostate (HCC) COLONOSCOPY 07/21/2022 11:07 AM WEBBING SUPERVISOR from Last 3 Months or Most Recently [...] P.A. LAB BLOOD ADD-ON Performing Organization Address City/[facility]/ZIP Co de Phone Number [facility] [place] [address] [facility] [place] [address], [facility] [place] [address] [place] [phone] * NT-Pro B-Type Natriuretic Peptide (BNP) (04/15/2024 [...] Claire PATEL P.A.-C., P.A. LAB BLOOD ADD-ON [facility] [place] [address] [place] [address], [facility] [place] [address] [place] [phone] * (ABNORMAL) CBC with Differential, Blood (04/15/2024 [...] Claire PATEL, P.A.-C., P.A. LAB BLOOD ADD-ON [facility] [address] [place] [address], [facility] [place] [phone] * (ABNORMAL) Hemoglobin A1c (04/15/2024 4:33 PM [...] Claire PATEL, P.A.-C., P.A. LAB BLOOD ADD-ON [facility] [place] [address], [facility] [place] [address] * Basic Metabolic Panel (04/15/2024 4:33 PM [...] Claire PATEL P.A.-C., P.A. LAB BLOOD ADD-ON [facility] [address] [place] [address], [facility] [place] [address] [place] [phone] * ECG 12 Lead (04/15/2024 4:28 PM CDT) Ventricular Rate ECG/Min 82 BPM MUSE SD Interval 198 ms MUSE QRSD Interval 82 ms MUSE QT Interval 388 ms MUSE QTC Interval 453 ms MUSE P [place] 69 degrees MUSE R [place] 31 degrees MUSE T Wave [place] 69 degrees MUSE 04/15/2024 4:28 PM CDT 04/15/2024 5:04 PM CDT Impressions MUSE - 04/15/2024 5:04 PM CDT Normal sinus rhythm Nonspecific ST and T wave abnormality No previous ECGs available Reviewed by DONTE Fink Narrative Procedure Note Juan Francisco Malik M.D., Ph.D. - 04/15/2024 IMPRESSION: Normal sinus rhythm Nonspecific ST and T wave abnormality No previous ECGs available Reviewed by DONTE Fink Yoel Henry.Le.-C., P.A. ECG ORDERABLES MUSE NA * PSA (Prostate-Specific Antigen), Diagnostic (03/01/2024 9:17 AM CDT) Prostate-Specific Ag <0.10 <=6.5 ng/mL 03/01/2024 9:59 AM CDT [facility] Comment: ----ADDITIONAL INFORMATION---- The testing method is an electrochemiluminescence assay manufactured by [employer] and performed on the Modular or [...] LAB B LOOD ADD-ON Performing Organization Address City/[facility] Co de Phone Number [facility] [address] [place] [address], [facility] in [address] [phone] * COLONOSCOPY (07/21/2022 11:07 AM WEBBING SUPERVISOR) Narrative Procedure Note Jass Macias M.D. - 07/21/2022 11:07 AM CST [facility] [place] [facility] Patient Name: Breezy Paz Procedure Date: [...] bowel preparation was evaluated using the BBPS (Aurora BowelPreparation Scale) with scores of: Right Colon [...] Advance Directives For more information, please contact: [phone] Documents on File Type Date Recorded Patient Seating Upholsterer Expl anation Advance Directives 03/13/2023 1:42 PM Abel Jones Yessi Akbar HCPOA/ADVOCATE/AGENT/ AUTOMOTIVE CUSTOMER EXPERIENCE ADVISOR/SURROG ATE * Full Code (Latest Code Status [...] Relationship Communication Abel Gilmore Health Care Agent Edelisabet Balderramay Friend First Alternate Health Care Agent Care Teams Terminal Block Assembler Relationship Specialty Start Date End Date Claire Jimenez MPAS, P.A.-C., P.A. [address] [phone] PCP - General Family Medicine 04/01/24
--- OUTSIDE RECORDS SUMMARY | 2024-05-15 09:53 | XMS_ITS | Referral Summary ---
Author Organization [facility] Address [address] [place] [address] Care Team Providers Care Concrete Rubber Name Role Phone Claire Jimenez PDrea.Hebert., P.A. Primary Care Provider Source Comments Patient records contain information from all sites at [facility]. For routine questions regarding patient records, call [phone] during business hours, M-F 8:00 AM - 5:00 PM Central Time. Record requests for emergency care only can be directed to [phone] at any time.[facility] Encounters Date Type Department Care Team Description 05/10/2024 Documentation Preoperative Evaluation Center in [place], [place] [address] [place] [address] Chitra Bateman APRN, C.N.P., M.S.N. 05/08/2024 Orders Only Department of Pediatrics in [address] [phone] Shania Christensen R.N. 05/08/2024 4:00 PM CDT Telemedicine Department of Family Medicine, [facility], in [address] [phone] Claire Jimenez MPAS, P.Le.-C., Padmini Pham R.N. Annual Medicare Examination Return (Primary Dx) Discharge Disposition: Home or Self Care 04/29/2024 Clinical Communication Department of [facility], [facility], [address] [place] [phone] Claire Jimenez, Mike PATEL, P.A. Communication 04/25/2024 Clinical Communication Department of [facility], [facility], [address] [place] [phone] Claire Jimenez MPAS, P.A.-C., P.A. Results (ECG) 04/19/2024 Clinical Communication Department of [facility], [facility], [address] [place] [phone] Claire Jimenez MPAS, P.A.-C., P.A. 04/17/2024 Clinical Communication Department of [facility], [facility], [address] [place] [phone] Laura Segundo, RToshia. Follow-up Orders (Pre-op for Right Hip Total Arthroplasty) 04/16/2024 Clinical Communication Department of [facility], [address] [place] [phone] Claire Jimenez MPAS, P.A.-C., P.A. Order Request 04/15/2024 4:40 PM CDT - 04/15/2024 11:59 PM CDT Hospital Encounter Department of Radiology in [address] [phone] Claire Jimenez MPAS, P.A.-C., P.A. Preoperative Exam Discharge Disposition: Home or Self Care 04/15/2024 4:25 PM CDT - 04/15/2024 4:39 PM CDT Hospital Encounter Department of Laboratory Medicine in [address] [phone] Claire Jimenez MPAS P.A.-C., P.A. Preoperative Exam; Screening Lipid; Encounter For Screening For Cardiovascular Disorders; Screening Examination Diabetes Mellitus Discharge Disposition: Home or Self Care 04/15/2024 2:15 PM CDT Office Visit Department of Family Medicine, [facility], in [address] [phone] Claire Jimenez MPAS, P.A.-C., P.A. Preoperative Exam (Primary Dx); Primary Osteoarthritis Hip Right; Apnea Sleep Obstructive; Murmur Heart; Primary Malignant Neoplasm Of Prostate (HCC); Hyperlipidemia; Encounter For Screening For Cardiovascular Disorders; PreDiabetes; Stenosis Aortic Valve Acquired Discharge Disposition: Home or Self Care 04/09/2024 Orders Only [facility] PCP [facility] Claire Jimenez MPAS, P.A.-C., P.A. 03/24/2024 Orders Only Department of Radiation Oncology in [place], [place] [address] [place] [address] Demetri Dick M.D. 03/04/2024 Orders Only Department of Radiation Oncology in [address] [phone] Michael Kingsley APRN, C.N.P., D.N.P. Primary Malignant Neoplasm Of Prostate (HCC) (Primary Dx) 03/04/2024 Orders Only Department of Radiation Oncology in [address] [phone] Michael Kingsley APRN C.N.P., D.N.P. Primary Malignant Neoplasm Of Prostate (HCC) (Primary Dx) 03/01/2024 9:12 AM CDT - 03/01/2024 11:59 PM CDT Hospital Encounter Department of Laboratory Medicine in [address] [phone] Michael Kingsley APRN C.N.P., D.N.P. Primary Malignant Neoplasm Of Prostate (HCC) Discharge Disposition: Home or Self Care 02/29/2024 Orders Only Department of Radiation Oncology in [place], [place] [address] [place] [address] Michael Kingsley APRN, C.N.P., D.N.P. Primary Malignant Neoplasm Of Prostate (HCC) (Primary Dx) 02/27/2024 Clinical Communication Department of Radiation Oncology in [place], [place] [address] [place] [address] Michael Kingsley APRN, Bouchra.N.P., D.N.P. from Last 3 Months Allergies No known [...] (05/03/2022): Added automatically from request for surgery [id number] Resolved Problems Problem Noted Date Diagnosed Date Resolved Date Tumor Prostate 10/27/2022 12/12/2022 Overview (10/27/2022): Added automatically from request for surgery [id number] Immunizations Name Administration Dates Next Due Influenza, Quadrivalent, Adjuvanted, Preservativ e Free 05/19/2021 Tdap 08/13/2012 Social History Tobacco Use Types Packs/Day Years Used Date Smoking Tobacco: Never Smokeless Tobacco: Never Alcohol Use Standard Drinks/Week Comments Yes 2 (1 standard drink = 0.6 oz pur e alcohol) [facility] Utilities Answer Date Recorded In the past 12 months has [facility] [employer], gas, oil, or water [employer] threatened to shut off services in your [...] any clubs o r organizations such as baptism groups, unions, fraternal or athletic groups, or [...] Answer Date Recorded PHQ-2 Score 0 05/01/2024 [facility] Answer Date [...] your living situation today? I have a [facility] place to live 02/03/2024 Education Answer Date [...] Department of Physical Medicine and Rehabilitation in [address] [phone] Racheal Terry APRN, C.N.P., D.N.P. [address] [place] [phone] Jazmyne Venegas P.T. [address] [place] [phone] 06/25/2024 9:10 AM CDT Appointment Department of Laboratory Medicine in [address] [phone] Laly Carrasco APRN, C.N.P., D.N.P. [address] [place] [phone] 07/09/2024 8:00 AM [facility] Hospital Encounter Outpatient Procedure Center in [place], [place] [address] [place] [address] Eric Pineda M.D. [address] [place] [phone] 07/09/2024 8:00 AM WELT INSOLE CHANNELER - 07/09/2024 8:54 AM [facility] Surgery Outpatient Procedure Center in [place], [place] [address] [place] [phone] Eric Pineda M.D. [address] [place] [phone] EXCHANGE URETERAL STENT Scheduled Procedures Name Priority Associated Diagnoses Date/Ti me EXCHANGE URETERAL STENT Obstruction Ureter 07/09/2024 8:00 AM [employer]EL[employer] INSO[employer] CHANNELER Medical Devices Implanted Type Area Project Reservoir Engineer Device Identifier Shelf Expiration Date Model / Serial / Lot Hardware E.G. Pins/Screws/ Rods Hardware e.g. pins/screws /rods Right: Hip Marker Tissue [employer] Kv 1x5 - [id number] Implanted:Qt y: 4 on 02/09/2023 by Mayra Rodriguez M.D. at [facility] Imaging Marker Circumferen tial: [facility] [id number] 07/14/2027 [id number] / / [id number] Stnt Uret Psh Imj W/O Gw 7fx26 - [id number] Implanted:Qt y: 1 on 02/09/2024 by Sola Perez M.D., M.S. at [facility] Ureteral Stent Right: Ureter Coloplast [id number] 06/27/2025 [facility] / [id number] Explanted Type Area Project Reservoir Engineer Device Identifier Shelf Expiration Date Model / Serial / Lot Stnt Uret Inl 6fx26 - [id number] Implanted:Qty : 1 on 11/14/2022 by Sylvia Toscano D.O. at [facility] Explanted:Qty : 1 on 02/21/2023 by Sarah Hernandez M.D. at [facility] Ureteral Stent Right: Ureter [employer] [id number] 04/19/2027 [id number] / / [id number] Stnt Uret Psh Imj W/O Gw 6fx26 - [id number] Implanted:Qty : 1 on 02/21/2023 by Sarah Hernandez M.D. at [facility] Explanted:Qty : 1 on 09/07/2023 by Sia Duque M.D. at [facility] Ureteral Stent Right: Ureter Coloplast [id number] 09/28/2024 [facility] / / [id number] Stnt Uret Psh Imj W/O Gw 6fx26 - [id number] Implanted:Qty : 1 on 09/07/2023 by Sia Duque M.D. at [facility] Post/Gonda Explanted:Qty : 1 on 02/09/2024 by Sola Perez M.D., M.S. at [facility] Post/Gonda Ureteral Stent Right: Ureter Coloplast [id number] 10/05/2024 [facility] / / [id number] Procedures Procedure Name Priority Date/Time Associated Diagnosis [...] Of Prostate (HCC) COLONOSCOPY 07/21/2022 11:07 AM WELT INSOLE CHANNELER from Last 3 Months or Most Recently [...] Claire PATEL, P.A.-C., P.A. LAB BLOOD ADD-ON [facility] [address] [place] [address], [facility] RDWG [facility] in [place] [address] [place] [phone] * NT-Pro B-Type Natriuretic Peptide (BNP) (04/15/2024 [...] 4:33 PM CDT 04/15/2024 4:36 PM CDT Calire Shafer Tony PATEL PDrea.Eligio, P.A. LAB BLOOD ADD-ON [facility] [address] [facility] [place] [address], [facility]G [facility] [place] [address] [place] [address] * (ABNORMAL) CBC with Differential, Blood (04/15/2024 [...] CDT 04/15/2024 4:36 PM CDT Claire Hollis Joslyn Carty.AdelaidaC., P.A. LAB BLOOD ADD-ON Performing Organization Address [facility] Co de Phone Number [facility] [address] [place] [address], [facility]G [facility] in [address] [phone] * (ABNORMAL) Hemoglobin A1c (04/15/2024 4:33 PM CDT) Hemoglobin A1c, B 6.0(H) 4.2 - 5.6 % 04/15/2024 5:01 PM CDT RDWG Comment: Hemoglobin A1c values of 5.7-6.4 percent indicate an increased risk for developing diabetes mellitus. In diabetic patients, HbA1c goals should be discussed with healthcare provider. Blood (Blood, Venous) 04/15/2024 4:33 PM CDT 04/15/2024 4:36 PM CDT Claire Hollis Joslyn Carty.-C., P.A. LAB BLOOD ADD-ON Performing Organization Address City/[facility] Co de Phone Number [facility] [address] [place] [address], [facility] RDWG [facility] in [address] [phone] * Basic Metabolic Panel (04/15/2024 4:33 PM [...] Tony PATEL, P.A.-C., P.A. LAB BLOOD ADD-ON [facility] [address] [facility] [place] [address], [facility] R[facility]G [facility] [place] [address] [place] [address] [facility] [place] [address] * ECG 12 Lead (04/15/2024 4:28 PM CDT) Ventricular Rate ECG/Min 82 BPM MUSE DC Interval 198 ms MUSE QRSD Interval 82 ms MUSE QT Interval 388 ms MUSE QTC Interval 453 ms MUSE P [place] 69 degrees MUSE R [place] 31 degrees MUSE T Wave [place] 69 degrees MUSE 04/15/2024 4:28 PM CDT [...] APRN, C.N.P., D.N.P. LAB B LOOD ADD-ON [facility] [address] [place] [address], [facility] [place] [address] [place] [address] * COLONOSCOPY (07/21/2022 11:07 AM WELT INSOLE CHANNELER) Narrative Procedure Note Jass Macias M.D. - 07/21/2022 11:07 AM CST [facility] [place] [facility] Patient Name: Breezy Paz Procedure Date: [...] bowel preparation was evaluated using the BBPS ([place]eva BowelPreparation Scale) with scores of: Right Colon [...] On: 07/21/2022 11:07 AM Jose Rafael PATEL, P.Le.-Bouchra., P.A. GI PROCEDURE ORDERABLES from Last 3 Months or Most Recently Relevant to Health Maintenance Advance Directives For more information, please contact: [phone] Documents on File Type Date Recorded Patient Studio Technician Video Operator Expl anation Advance Directives 03/13/2023 1:42 PM Abel Webber HCPOA/ADVOCATE/AGENT/ COTTON BROKER/SURROG ATE * Full Code (Latest Code Status on File) Date Activated Date Inactivated Comments 11/14/2022 7:04 AM 11/14/2022 1:06 PM Question Answer Comments Full Code: Not Discussed Due to: Patient not available * Full Code Date Activated Date Inactivated Comments 07/21/2022 11:42 AM 07/21/2022 1:46 PM Question Answer Comments Full Code: Discussed Healthcare Agents on File Name Relationship Healthcare Agent Relationship Communication Abel Gavinchazjoan [facility] Care Agent [email or web address] Akbar [employer] Alternate Health Care Agent Care Teams Concrete Rubber Relationship Specialty Start Date End Date Claire Jimenez MPAS, PDavidA.-C., P.A. [address] [place] [address] PCP - General Family Medicine 04/01/24
--- OUTSIDE RECORDS SUMMARY | 2024-05-15 09:53 | XMS_ITS | Encounter Summary ---
Author Organization [facility] Address [address] [place] [address] Care Team Providers Care Compounding Scaler Name Role Phone Claire Jimenez P.A.-C., P.A. Primary Care Provider Reason for Referral * Outpatient (Routine) - Authorized Specialty Diagnoses / Procedures Referred By Lucinda franco Referred To Contact Andrea Mendez M.D. [address] [place] [address] [facility] Referral ID Status Reason Start Date Expiration Date V isits Requested Visits Authorized [id number] Authorized 05/08/2024 11/07/2025 1 1 Scheduling Instructions 12-Month Medicare Visit Reason for Visit * Reason Comments Medicare Annual Wellness Visit Initial * Outpatient (Routine) - Closed Specialty Diagnoses / Procedures Referred By Lucinda franco Referred To Contact Claire Jimenez MPAS, P.A.-C., P.A. [address] [place] [address] [facility] Region Referral ID Status Reason Start Date Expiration Date Visits Re quested Visits Authorized [id number] Closed 04/09/2024 10/09/2025 1 1 Encounter Details Date Type Department Care Team (Late st Contact Info) Description 05/08/2024 4:00 PM CDT Telemedicine Department of Family Medicine, [facility], in [place], [place] [address] [place] [address] Claire Jimenez MPAS, PDrea.-C., P.A. [address] [place] [phone] Padmini Myrick R.N. Annual Medicare Examination Return (Primary Dx) Discharge Disposition: Home or Self Care Social History Tobacco Use Types Packs/Day Years Used Date Smoking Tobacco: Never Smokeless Tobacco: Never Alcohol Use Standard Drinks/Week Comments Yes 2 (1 standard drink = 0.6 oz pur e alcohol) [facility] Utilities Answer Date Recorded In the past 12 months has [employer], gas, oil, or water [employer] threatened to shut off services in your [...] week 10/27/2022 How often do you attend [facility] or voodoo services? More than 4 times per year 10/27/2022 Do you belong to any clubs o r organizations such as synagogue groups, unions, fraternal or athletic groups, or [...] Answer Date Recorded PHQ-2 Score 0 05/01/2024 [facility] - Occupational [...] your living situation today? I have a [facility] place to live 02/03/2024 Education Answer [...] as of this encounter Progress Notes * Padmini Myrick R.N. - 05/08/2024 4:00 PM CDT HEALTH ASSESSMENT Reason For Visit Patient presents with Medicare Annual Wellness Visit Initial Video Consult conducted via real-time audio/video technology by Padmini Myrick R.N. in [facility] to the patient in Patient's Home The following portions of the patient's history were reviewed and updated as appropriate: allergies, medications, family history, social history, surgical history and care team/suppliers. VITALS Blood Pressure: 147/84 (04/15/2024 2:25 PM) Temperature: 36.4 ??C (04/15/2024 2:16 PM) Temp Source: Temporal (04/15/2024 2:16 PM) Pulse Rate: 78 (04/15/2024 2:25 PM) BMI (Calculated): 38.1 kg/m?? (04/15/2024 2:16 PM) Height: 179.1 cm (04/15/2024 2:16 PM) Weight: 122 kg (04/15/2024 2:16 PM) Health Risk Assessment and Social Determinants of Health Health Risk Assessment (HRA) completed and reviewed: Yes Social Determinants of Health (SDOH) questionnaires were reviewed during this visit. The following concerns were prioritized to be addressed: No concerns identified. Depression Screening PHQ-2 Score: 0 Cognitive Assessment Cognitive function assessed by direct observation without concerns. Current Opioid Use None Education regarding non-opioid options for pain management not applicable at this time. FUNCTIONAL/HOME ENVIRONMENT History of falls: Have you fallen within the last year or do you fear you might fall?: Yes (02/09/2024 1:26 PM) Do you use an assisted device to walk? (Walker, cane, wheelchair, crutch): No (09/07/2023 1:41 PM) Today, do you feel any of the following? Weak, dizzy, shaky, or unsteady?: No (09/07/2023 1:41 PM) Have you taken any medication within the last 6 hours which may make you feel drowsy? Such as sleep, pain, or anxiety medication: No (09/07/2023 1:41 PM) Home Safety Patient's home contains the following: Throw Rugs No. Adequate lighting: Yes. Slippery bathtub and/or shower surfaces: No. Grab bars installed in the bathroom: Yes. Handrails on steps/stairs: Yes. Functional smoke/carbon monoxide alarms: Yes. Patient is reminded to change the batteries every 6 months if device is not A/C powered or hard-wired into the home. Advance Directive Advance Directives: Received 03/13/2023 Advance directive completed and a copy is on file. Patient confirms that healthcare agents listed are still current and the advance directive is up to date. No further action required at this time. Preventive Services Schedule Health Maintenance Topic Date Due Visit: Medicare Annual Wellness Never done Hepatitis C Screening Never done Pneumococcal vaccine (65+ years) (1 of 2 - PCV) Never done Zoster Vaccines (1 of 2) Never done DTaP,Tdap,and Td Vaccines (2 - Td or Tdap) 08/13/2022 COVID-19 Vaccine (4 - 2022-24 season) 2024 Influenza Vaccine (1) 06/04/2024 Visit: Annual, age 65+ (or Medicare and <65) 04/15/2025 Fasting Glucose for Diabetes Screening 04/15/2025 Colorectal Cancer Surveillance 07/21/2027 Lipid (Cholesterol) Screening 04/15/2029 Depression Screening (Annual PHQ-2) Completed Fall Risk Screen (Annual) Completed HPV Vaccines Aged Out Recommended patient look into vaccines at local pharmacy, he states he will do so. After Visit Summary (AVS) reviewed and patient will access via patient online services documented in this encounter Plan of Treatment Upcoming Encounters Date Type Department Care Team (Latest Contact Info) Description 05/24/2024 10:00 AM CDT Comprehensive Visit Department of Physical Medicine and Rehabilitation in [address] [phone] Racheal Terry APRN, C.N.P., D.N.P. [address] [place] [phone] Jazmyne Venegas P.T. [address] [place] [phone] 06/25/2024 9:10 AM CDT Appointment Department of Laboratory Medicine in [address] [phone] Laly Carrasco APRN, C.N.P., D.N.P. [address] [place] [phone] 07/09/2024 8:00 AM HOSPICE OFFICE COORDINATOR Hospital Encounter Outpatient Procedure Center in [place], [place] [address] [place] [phone] Eric Pineda M.D. [address] [place] [phone] 07/09/2024 8:00 AM HOSPICE OFFICE COORDINATOR - 07/09/2024 8:54 AM [facility] Surgery Outpatient Procedure Center in [place], [place] [address] [place] [phone] Eric Pineda M.D. [address] [place] [phone] EXCHANGE URETERAL STENT Scheduled Procedures Name Priority Associated Diagnoses Date/Ti me EXCHANGE URETERAL STENT Obstruction Ureter 07/09/2024 8:00 AM HOSPICE OFFICE COORDINATOR Scheduled Referrals Name Type Priority Associated Diagnoses Orde r Schedule Primary Care nurse visit (clinic) - [facility] Region; Medicare Annual Wellness Outpatient Referral Routine Expected: 05/08/2025 (Approximate), Expires: 08/07/2025 documented as of this encounter Visit Diagnoses Diagnosis Annual Medicare Examination Return- Primary Obstruction Ureter documented in this encounter Care Teams Compounding Scaler Relationship Specialty Start Date End Date Claire Jimenez MPAS, P.A.-C., P.A. [address] [place] [phone] PCP - General Family Medicine 04/01/24 documented as of this encounter
--- OUTSIDE RECORDS SUMMARY | 2024-05-15 09:53 | XMS_ITS | Encounter Summary ---
Author Organization [facility] Address [address] [place] [address] Care Team Providers Care Precision Assembler Bench Name Role Phone Claire Jimenez, PDrea.-C., P.A. Primary Care Provider Encounter Details Date Type Department Care Team (Late st Contact Info) Description 05/10/2024 Documentation Preoperative Evaluation Center in [place], [place] [address] [place] [address] Chitra Bateman, TIMOTHY C.N.P., M.S.N. [address] [place] [phone] Social History Tobacco Use Types Packs/Day Years Used Date Smoking Tobacco: Never Smokeless Tobacco: Never Alcohol Use Standard Drinks/Week Comments Yes 2 (1 standard drink = 0.6 oz pur e alcohol) [facility] Utilities Answer Date Recorded In the [...] How often do you attend chur or taoist services? More than 4 times per year 10/27/2022 Do you belong to any clubs o r organizations such as religion groups, unions, fraternal or athletic groups, or [...] Answer Date Recorded PHQ-2 Score 0 05/01/2024 [facility] of Occupat ional Health - Occupational Stress [...] your living situation today? I have a [facility] place to live 02/03/2024 Education Answer [...] as of this encounter Progress Notes * Chitra Bateman, TIMOTHY, C.N.P., M.S.N. - 05/10/2024 12:14 PM CDT This is a JOLEEN pre-screening chart review to ascertain if a JOLEEN appointment is necessary. A comprehensive review of [facility] EMR was performed. We reviewed Care Everywhere and Documents Viewer or primary care or specialty care notes, laboratory testing, cardiac testing with in the last6 months and prior anesthesia encounters. [facility] Medicine preoperative exam 04/15/24. Anesthesia note 02/09/24. Based on the EMR review, the patient is an acceptable candidate for the planned procedure and may proceed without additional preoperative evaluation or testing. The patient was not seen in JOLEEN. Please call [phone] (JOLEEN Doc of the day) weekdays between 8 am and 4:30 pm with any questions. documented in this encounter Plan of Treatment Upcoming Encounters Date Type Department Care Team (Latest Contact Info) Description 05/24/2024 10:00 AM CDT Comprehensive Visit Department of Physical Medicine and Rehabilitation in [address] [phone] Racheal Terry APRN, C.N.P., D.N.P. [address] [place] [phone] Jazmyne Venegas P.T. [address] [place] [phone] 06/25/2024 9:10 AM CDT Appointment Department of Laboratory Medicine in [address] [phone] Laly Carrasco APRN, C.N.P., D.N.P. [address] [place] [phone] 07/09/2024 8:00 AM PILE DRIVING TECHNICIAN Hospital Encounter Outpatient Procedure Center in [place], [place] [address] [place] [phone] Eric Pineda M.D. [address] [place] [phone] 07/09/2024 8:00 AM PILE DRIVING TECHNICIAN - 07/09/2024 8:54 AM PILE DRIVING TECHNICIAN Surgery Outpatient Procedure Center in [place], [place] [address] [place] [address] Eric Pineda M.D. [address] [place] [phone] EXCHANGE URETERAL STENT Scheduled Procedures Name Priority Associated Diagnoses Date/Ti me EXCHANGE URETERAL STENT Obstruction Ureter 07/09/2024 8:00 AM PILE DRIVING TECHNICIAN documented as of this encounter Visit Diagnoses Not on filedocumented in this encounter Care Teams Precision Assembler Bench Relationship Specialty Start Date End Date Claire Jimenez MPAS, P.Le.-C., P.A. [address] [place] [phone] PCP - General Family Medicine 04/01/24 documented as of this encounter
--- OUTSIDE RECORDS SUMMARY | 2024-05-15 09:54 | XMS_ITS | Encounter Summary ---
Author Organization [facility] Address [address] [place] [address] Care Team Providers Care Magisterial District Judge Name Role Phone Claire Jimenez P.A.-C., P.A. Primary Care Provider Reason for Referral * Outpatient (Routine) - Closed Specialty Diagnoses / Procedures Referred By Contac t Referred To Contact Claire Jimenez MPAS, P.A.-C., P.A. [address] [place] [phone] [facility] Region Referral ID Status Reason Start Date Expiration Date Visits Re quested Visits Authorized [id number] Closed 04/09/2024 10/09/2025 1 1 Scheduling Instructions Nurse AWV Do not schedule prior to due date to ensure insurance coverage Visit: Medicare Annual Wellness Never done. Encounter Details Date Type Department Care Team (Late st Contact Info) Description 04/09/2024 Orders Only [facility] Claire Jimenez MPAS, P.A.-C., P.A. [address] [place] [phone] Social History Tobacco Use Types Packs/Day Years Used Date Smoking Tobacco: Never Smokeless Tobacco: Never Alcohol Use Standard Drinks/Week Comments Yes 2 (1 standard drink = 0.6 oz pur e alcohol) [facility] Utilities Answer Date Recorded In [...] How often do you attend chur or hinduism services? More than 4 times per year 10/27/2022 Do you belong to any clubs o r organizations such as temple groups, unions, fraternal or athletic groups, or [...] Answer Date Recorded PHQ-2 Score 2 04/09/2024 [facility] - Occupational Stress Questionnaire Answer Date [...] of Physical Medicine and Rehabilitation in [address] [phone] Racheal Terry APRN, C.N.P., D.N.P. [address] [place] [phone] Jazmyne Venegas P.T. [address] [place] [phone] 06/25/2024 9:10 AM CDT Appointment Department of Laboratory Medicine in [address] [phone] Laly Carrasco APRN, C.N.P., D.N.P. [address] [place] [phone] 07/09/2024 8:00 AM [facility] Hospital Encounter Outpatient Procedure Center in [place], [place] [address] [place] [phone] Eric Pineda M.D. [address] [place] [phone] 07/09/2024 8:00 AM QUALITY CONSULTANT - 07/09/2024 8:54 AM [facility] Surgery Outpatient Procedure Center in [place], [place] [address] [place] [phone] Eric Pineda M.D. [address] [place] [phone] EXCHANGE URETERAL STENT Scheduled Procedures Name Priority Associated Diagnoses Date/Ti me EXCHANGE URETERAL STENT Obstruction Ureter 07/09/2024 8:00 AM QUALITY CONSULTANT Scheduled Referrals Name Type Priority Associated Diagnoses Orde r Schedule Primary Care nurse visit (clinic) - [facility] Region; Medicare Annual Wellness Outpatient Referral Routine Expected: 05/07/2024, Expires: 10/06/2024 documented as of this encounter Visit Diagnoses Not on filedocumented in this encounter Care Teams Magisterial District Judge Relationship Specialty Start Date End Date Claire Jimenez MPAS, P.A.-C., P.A. [address] [place] [phone] PCP - General Family Medicine 04/01/24 documented as of this encounter
--- OUTSIDE RECORDS SUMMARY | 2024-05-15 09:54 | XMS_ITS | Encounter Summary ---
Author Organization [facility] Address [address] [place] [address] Care Team Providers Care Carnallite Plant Operator Name Role Phone No Contact, Pcp Primary Care Provider Unavailabl e Encounter Details Date Type Department Care Team (Late st Contact Info) Description 03/04/2024 Orders Only Department of Radiation Oncology in [place], [place] [address] [place] [phone] Michael Kingsley, TIMOTHY, C.N.P., D.N.P. [address] [place] [phone] Primary Malignant Neoplasm Of Prostate (HCC) (Primary Dx) Social History Tobacco Use Types Packs/Day Years Used Date Smoking Tobacco: Never Smokeless Tobacco: Never Alcohol Use Standard Drinks/Week Comments Yes 2 (1 standard drink = 0.6 oz pur e alcohol) [facility] Utilities Answer Date Recorded In the [...] How often do you attend chur or yarsanism services? More than 4 times per year [...] Answer Date Recorded PHQ-2 Score 0 10/27/[address] [facility] [address] of Occupat ional Health - Occupational Stress [...] your living situation today? I have a [facility] place to live 02/03/2024 Education Answer [...] Department of Physical Medicine and Rehabilitation in [address] [phone] Racheal Terry APRN, C.N.P., D.N.P. [address] [place] [phone] Jazmyne Venegas P.T. [address] [place] [phone] 06/25/2024 9:10 AM CDT Appointment Department of Laboratory Medicine in [address] [phone] Laly Carrasco, TIMOTHY, C.N.P., D.N.P. [address] [place] [phone] 07/09/2024 8:00 AM CUSTOM DESIGNER Hospital Encounter Outpatient Procedure Center in [place], [place] [address] [place] [phone] Eric Pineda M.D. [address] [place] [phone] 07/09/2024 8:00 AM CUSTOM DESIGNER - 07/09/2024 8:54 AM CUSTOM DESIGNER Surgery Outpatient Procedure Center in [place], [place] [address] [place] [phone] Eric Pineda M.D. [address] [place] [phone] EXCHANGE URETERAL STENT Scheduled Procedures Name Priority Associated Diagnoses Date/Ti me EXCHANGE URETERAL STENT Obstruction Ureter 07/09/2024 8:00 AM CUSTOM DESIGNER documented as of this encounter Visit Diagnoses Diagnosis Primary Malignant Neoplasm Of Prostate (HCC)- Primary Obstruction Ureter documented in this encounter Care Teams Carnallite Plant Operator Relationship Specialty Start Date End Date No Contact, Pcp PCP - General Family Medicine 07/31/19 03/31/24 documented as of this encounter
--- OUTSIDE RECORDS SUMMARY | 2024-05-15 09:54 | XMS_ITS | Encounter Summary ---
Author Organization [facility] Address [address] [place] [address] Care Team Providers Care Controller Mechanic Name Role Phone Claire Jimenez P.A.-C., P.A. Primary Care Provider Reason for Referral * Outpatient (Routine) - Authorized Specialty Diagnoses / Procedures Referred By Lucinda t Referred To Contact Cardiovascular Diseases Diagnoses Murmur Heart Claire Jimenez MPAS, P.A.-C., P.A. [address] [place] [phone] [facility] [address] [place] [address] Referral ID Status Reason Start Date Expiration Date Visits Requested Visits Authorized [id number] Authorized Patient Preference 04/18/2024 10/18/2025 1 1 Reason for Visit * Reason Onset Date Comments Order Request 04/16/2024 Encounter Details Date Type Department Care Team (Late st Contact Info) Description 04/16/2024 Clinical Communication Department of Family Medicine, [facility], in [address] [place] [phone] Claire Jimenez MPAS, P.A.-C., P.A. 701 [place] [place] [phone] Order Request Social History Tobacco Use Types Packs/Day Years Used Date Smoking Tobacco: Never Smokeless Tobacco: Never Alcohol Use Standard Drinks/Week Comments Yes 2 (1 standard drink = 0.6 oz pur e alcohol) [facility] Utilities Answer Date Recorded In [...] often do you attend chur ch or anabaptism services? More than 4 times per year [...] Answer Date Recorded PHQ-2 Score 2 04/09/2024 [facility] [place] of Occupat ional Health - Occupational Stress [...] [place]. * Telephone Encounter - Heydi Walker L.P.N. - 04/18/2024 11:01 AM CDT Routed to fax number given. documented in this encounter Plan of Treatment Upcoming Encounters Date Type Department Care Team (Latest Contact Info) Description 05/24/2024 10:00 AM CDT Comprehensive Visit Department of Physical Medicine and Rehabilitation in [address] [phone] Racheal Terry APRN, C.N.P., D.N.P. [address] [place] [phone] Jazmyne Venegas P.T. [address] [place] [phone] 06/25/2024 9:10 AM CDT Appointment Department of Laboratory Medicine in [address] [phone] Laly Carrasco APRN, C.N.P., D.N.P. [address] [place] [phone] 07/09/2024 8:00 AM POWER SYSTEM ENGINEER Hospital Encounter Outpatient Procedure Center in [place], [place] [address] [place] [address] Eric Pineda M.D. [address] [place] [phone] 07/09/2024 8:00 AM POWER SYSTEM ENGINEER - 07/09/2024 8:54 AM POWER SYSTEM ENGINEER Surgery Outpatient Procedure Center in [place], [place] [address] [place] [phone] Eric Pineda M.D. [address] [place] [phone] EXCHANGE URETERAL STENT Scheduled Procedures Name Priority Associated Diagnoses Date/Ti me EXCHANGE URETERAL STENT Obstruction Ureter 07/09/2024 8:00 AM POWER SYSTEM ENGINEER documented as of this encounter Visit Diagnoses Diagnosis Murmur Heart- Primary Obstruction Ureter documented in this encounter Care Teams Controller Mechanic Relationship Specialty Start Date End Date Claire Jimenez MPAS, PDrea.-C., P.A. [address] [place] [phone] PCP - General Family Medicine 04/01/24 documented as of this encounter
--- OUTSIDE RECORDS SUMMARY | 2024-05-15 09:54 | XMS_ITS | Encounter Summary ---
Author Organization [facility] Address [address] [place] [address] Care Team Providers Care Audio Visual Tech Name Role Phone No Contact, Pcp Primary Care Provider Unavailabl e Encounter Details Date Type Department Care Team (Late st Contact Info) Description 03/24/2024 Orders Only Department of Radiation Oncology in [place], [place] [address] [place] [phone] Demetri Dick M.D. [address] [place] [phone] Social History Tobacco Use Types Packs/Day Years Used Date Smoking Tobacco: Never Smokeless Tobacco: Never Alcohol Use Standard Drinks/Week Comments Yes 2 (1 standard drink = 0.6 oz pur e alcohol) [facility] Utilities Answer Date Recorded In the past 12 months has [facility] [employer], gas, oil, or water [employer] threatened to shut off services in your [...] How often do you attend chur or church services? More than 4 times per year [...] Answer Date Recorded PHQ-2 Score 0 10/27/2022 [facility] [place] of Occupat ional Health - Occupational Stress [...] your living situation today? I have a [facility] place to live 02/03/2024 Education Answer [...] Department of Physical Medicine and Rehabilitation in [place], [place] [address] [place] [phone] Racheal Terry APRN, C.N.P., D.N.P. [address] [place] [phone] Jazmyne Venegas P.T. [address] [place] [phone] 06/25/2024 9:10 AM CDT Appointment Department of Laboratory Medicine in [place], [place] [address] [place] [phone] Laly Carrasco, TIMOTHY, C.N.P., D.N.P. [address] [place] [phone] 07/09/2024 8:00 AM HOT FRAME TENDER Hospital Encounter Outpatient Procedure Center in [place], [place] [address] [place] [phone] Eric Pineda M.D. [address] [place] [phone] 07/09/2024 8:00 AM HOT FRAME TENDER - 07/09/2024 8:54 AM HOT FRAME TENDER Surgery Outpatient Procedure Center in [place], [place] [address] [place] [phone] Eric Pineda M.D. [address] [place] [phone] EXCHANGE URETERAL STENT Scheduled Procedures Name Priority Associated Diagnoses Date/Ti me EXCHANGE URETERAL STENT Obstruction Ureter 07/09/2024 8:00 AM HOT FRAME TENDER documented as of this encounter Visit Diagnoses Not on filedocumented in this encounter Care Teams Audio Visual Tech Relationship Specialty Start Date End Date No Contact, Pcp PCP - General Family Medicine 07/31/19 03/31/24 documented as of this encounter
--- OUTSIDE RECORDS SUMMARY | 2024-05-15 09:54 | XMS_ITS | Encounter Summary ---
Author Organization [facility] Address [address] [place] [address] Care Team Providers Care Human Resources Consultant Name Role Phone Claire Jimenez, P.A.-C., P.A. Primary Care Provider Reason for Visit * Reason Onset Date Comments Follow-up Orders 04/17/2024 Pre-op for Righ t Hip Total Arthroplasty Encounter Details Date Type Department Care Team (Latest Contact Info) Description 04/17/2024 Clinical Communication Department of Family Medicine, [facility], in [place], [place] [address] [place] [phone] Laura Segundo, RDavidN. Follow-up Orders (Pre-op for Right Hip Total Arthroplasty) Social History Tobacco Use Types Packs/Day Years Used Date Smoking Tobacco: Never Smokeless Tobacco: Never Alcohol Use Standard Drinks/Week Comments Yes 2 (1 standard drink = 0.6 oz pur e alcohol) [facility] Utilities Answer Date Recorded In the [...] often do you attend chur ch or baptist services? More than 4 times per year 10/27/2022 Do you belong to any clubs o r organizations such as quaker groups, unions, fraternal or athletic groups, or [...] Answer Date Recorded PHQ-2 Score 2 04/09/2024 [facility] [place] of Occupat ional Health - Occupational Stress [...] PLAN The following information was provided: Contacted [facility] (CASANDRA on file) efficiency clerk for Dr. Hansen as patient is scheduled for right total hip arthroplasty on 04/30/24. Patient was in clinic on 04/15/24 for preop clearance and PCP found new diagnosis of heart murmur and recommends a echocardiogram for further evaluation before he can be cleared for surgery. RN let efficiency clerk know that the patient is scheduledfor echocardiogram on 07/10/24 and it will be up to surgeon's discretion if wanting to proceed with planned surgery given his new heart murmur. RN will electronically fax 04/15/24 note to surgery team at: [phone] (done). Information/Education: not applicable The following references were used: provider Claire Jimenez PA-C * Telephone Encounter - Laura Segundo R.N. - 04/17/2024 8:38 AM CDT ----- Message from Claire Jimenez P.A.-C., P.ADavid sent at 04/16/2024 6:12 PM CDT ----- Hi, Patient has new diagnosis of heart murmur and I recommend a echocardiogram for further evaluation before he can be cleared for surgery. Would you be able to contact his surgical team with [facility] to inform them. It will be up to surgeon's discretion if wanting to proceed with planned surgery given his new heart murmur, I believe it is mild aortic stenosis. No other concerns besides his new heart murmur for proceeding with surgery. But recommend heart ultrasound prior to surgery. Surgery Team: Dr. Yoni Lutz MD [facility] [place], [place] Thank you, Claire documented in this encounter Plan of Treatment Upcoming Encounters Date Type Department Care Team (Latest Contact Info) Description 05/24/2024 10:00 AM CDT Comprehensive Visit Department of Physical Medicine and Rehabilitation in [address] [phone] Racheal Terry APRN, C.N.P., D.N.P. [address] [place] [phone] Jazmyne Venegas P.T. [address] [place] [phone] 06/25/2024 9:10 AM CDT Appointment Department of Laboratory Medicine in [address] [phone] Laly Carrasco APRN, C.N.PDavid, D.N.P. [address] [place] [phone] 07/09/2024 8:00 AM FISH HEADER Hospital Encounter Outpatient Procedure Center in [place], [place] [address] [place] [phone] Eric Pineda M.D. [address] [place] [phone] 07/09/2024 8:00 AM FISH HEADER - 07/09/2024 8:54 AM FISH HEADER Surgery Outpatient Procedure Center in [place], [place] [address] [place] [phone] Eric Pineda M.D. [address] [place] [phone] EXCHANGE URETERAL STENT Scheduled Procedures Name Priority Associated Diagnoses Date/Ti me EXCHANGE URETERAL STENT Obstruction Ureter 07/09/2024 8:00 AM FISH HEADER documented as of this encounter Visit Diagnoses Not on filedocumented in this encounter Care Teams Human Resources Consultant Relationship Specialty Start Date End Date Claire Jimenez MPAS, P.A.-C., P.A. [address] [place] [phone] PCP - General Family Medicine 04/01/24 documented as of this encounter
--- OUTSIDE RECORDS SUMMARY | 2024-05-15 09:54 | XMS_ITS | Encounter Summary ---
Author Organization [facility] Address [address] [place] [address] Care Team Providers Care Sales Enablement Consultant Name Role Phone Claier Jimenez P.A.-C., P.A. Primary Care Provider Reason for Visit * Reason Onset Date Comments Results 04/25/2024 ECG Encounter Details Date Type Department Care Team (Late st Contact Info) Description 04/25/2024 Clinical Communication Department of Family Medicine, [facility], in [place], [place] [address] [place] [phone] Claire Jimenez MPAS, P.A.-C., P.A. [address] [place] [phone] Results (ECG) Social History Tobacco Use Types Packs/Day Years Used Date Smoking Tobacco: Never Smokeless Tobacco: Never Alcohol Use Standard Drinks/Week Comments Yes 2 (1 standard drink = 0.6 oz pur e alcohol) [facility] Utilities Answer Date Recorded In the [...] Answer Date Recorded PHQ-2 Score 2 04/09/2024 [facility] of Occupat ional Health - Occupational Stress [...] your living situation today? I have a [facility] place to live 02/03/2024 Education [...] Department of Physical Medicine and Rehabilitation in [place], [place] [phone] Racheal Terry APRN, C.N.P., D.N.P. [address] [place] [phone] Jazmyne Venegas P.T. 701 [place] [phone] 06/25/2024 9:10 AM CDT Appointment Department of Laboratory Medicine in [address] [phone] Laly Carrasco APRN, C.N.P., D.N.P. [address] [place] [phone] 07/09/2024 8:00 AM PIECE MEAT TRIMMER Hospital Encounter Outpatient Procedure Center in [place], [place] [address] [place] [phone] Eric Pineda M.D. [address] [place] [phone] 07/09/2024 8:00 AM PIECE MEAT TRIMMER - 07/09/2024 8:54 AM PIECE MEAT TRIMMER Surgery Outpatient Procedure Center in [place], [place] [address] [place] [phone] Eric Pineda M.D. [address] [place] [phone] EXCHANGE URETERAL STENT Scheduled Procedures Name Priority Associated Diagnoses Date/Ti me EXCHANGE URETERAL STENT Obstruction Ureter 07/09/2024 8:00 AM PIECE MEAT TRIMMER documented as of this encounter Visit Diagnoses Not on filedocumented in this encounter Care Teams Sales Enablement Consultant Relationship Specialty Start Date End Date Claire Jimenez MPAS, P.A.-C., P.A. [address] [place] [phone] PCP - General Family Medicine 04/01/24 documented as of this encounter
--- OUTSIDE RECORDS SUMMARY | 2024-05-15 09:54 | XMS_ITS | Encounter Summary ---
Author Organization [facility] Address [address] [place] [address] Care Team Providers Care Tire And Lube Technician Name Role Phone No Contact, Pcp Primary Care Provider Unavailabl e Encounter Details Date Type Department Care Team (Late st Contact Info) Description 03/04/2024 Orders Only Department of Radiation Oncology in [place], [place] [address] [place] [phone] Michael Kingsley, TIMOTHY, C.N.P., D.N.P. [address] [place] [phone] Primary Malignant Neoplasm Of Prostate (HCC) (Primary Dx) Social History Tobacco Use Types Packs/Day Years Used Date Smoking Tobacco: Never Smokeless Tobacco: Never Alcohol Use Standard Drinks/Week Comments Yes 2 (1 standard drink = 0.6 oz pur e alcohol) [facility] Utilities Answer Date Recorded In [...] How often do you attend chur or hoahaoism services? More than 4 times per year 10/27/2022 Do you belong to any clubs o r organizations such as presybeterian groups, unions, fraternal or athletic groups, or [...] Answer Date Recorded PHQ-2 Score 0 10/27/2022 [facility] [place] of Occupat ional Health - Occupational Stress [...] your living situation today? I have a [facility] place to live 02/03/2024 Education [...] Department of Physical Medicine and Rehabilitation in [address] [phone] Racheal Terry APRN, C.N.P., D.N.P. [address] [place] [phone] Jazmyne Venegas P.T. [address] [place] [phone] 06/25/2024 9:10 AM CDT Appointment Department of Laboratory Medicine in [place], [place] [address] [place] [phone] Laly Carrasco, TIMOTHY, C.N.P., D.N.P. [address] [place] [phone] 07/09/2024 8:00 AM SMALL BUSINESS REPRESENTATIVE Hospital Encounter Outpatient Procedure Center in [place], [place] [address] [place] [phone] Eric Pineda M.D. [address] [place] [phone] 07/09/2024 8:00 AM SMALL BUSINESS REPRESENTATIVE - 07/09/2024 8:54 AM SMALL BUSINESS REPRESENTATIVE Surgery Outpatient Procedure Center in [place], [place] [address] [place] [address] Eric Pineda M.D. [address] [place] [phone] EXCHANGE URETERAL STENT Scheduled Orders Name Type Priority Associated Diagnoses Orde r Schedule PSA (Prostate-Specific Antigen), Diagnostic Lab Routine Primary Malignant Neoplasm Of Prostate (HCC) Expected: 09/04/2024, Expires: 06/04/2025 Scheduled Procedures Name Priority Associated Diagnoses Date/Ti me EXCHANGE URETERAL STENT Obstruction Ureter 07/09/2024 8:00 AM SMALL BUSINESS REPRESENTATIVE documented as of this encounter Visit Diagnoses Diagnosis Primary Malignant Neoplasm Of Prostate (HCC)- Primary Obstruction Ureter documented in this encounter Care Teams Tire And Lube Technician Relationship Specialty Start Date End Date No Contact, Pcp PCP - General Family Medicine 07/31/19 03/31/24 documented as of this encounter
--- OUTSIDE RECORDS SUMMARY | 2024-05-15 09:54 | XMS_ITS | Encounter Summary ---
Author Organization [facility] Address [address] [place] [address] Care Team Providers Care Skin Peeling Machine Operator Name Role Phone Claire Jimenez P.A.-C., P.A. Primary Care Provider Encounter Details Date Type Department Care Team (Latest Contact Info) Description 04/15/2024 4:25 PM CDT - 04/15/2024 4:39 PM CDT Hospital Encounter Department of Laboratory Medicine in [place], [place] [address] [place] [phone] Claire Jimenez MPAS, P.A.-C., P.A. [address] [place] [phone] Preoperative Exam; Screening Lipid; Encounter For [...] Recorded In the past 12 months has [employer], gas, oil, or water company threatened [...] week 10/27/2022 How often do you attend [facility] or christian services? More than 4 times per year 10/27/2022 Do you belong to any clubs o r organizations such as yarsanism groups, unions, fraternal or athletic groups, or [...] your living situation today? I have a [facility] place to live 02/03/2024 Education Answer [...] 1 each 04/16/2024 rosuvastatin (Crestor) 10 mg tabletIndications:Hyper lipidemia Take 1 tablet (10 mg total) by mouth daily. 90 tablet 3 04/16/2024 tamsulosin (FLOMAX) 0.4 mg 24 hr capsule Take 1 capsule (0.4 mg total) by mouth daily as needed (stent pain). 30 capsule 6 01/18/2024 UNABLE TO FIND Take 1 each by mouth daily. Med Name: RAMOS REYNA albuterol 90 mcg/actuation inhaler Inhale 2 puffs. 03/25/202412/2023 documented as of this encounter Plan of Treatment Upcoming Encounters Date Type Department Care Team (Latest Contact Info) Description 05/24/2024 10:00 AM CDT Comprehensive Visit Department of Physical Medicine and Rehabilitation in [address] [phone] Racheal Terry APRN, C.N.P., D.N.P. [address] [place] [phone] Jazmyne Venegas P.T. [address] [place] [phone] 06/25/2024 9:10 AM CDT Appointment Department of Laboratory Medicine in [address] [phone] Laly Carrasco APRN, C.N.P., D.N.P. [address] [place] [phone] 07/09/2024 8:00 AM [facility] Hospital Encounter Outpatient Procedure Center in [place], [place] [address] [place] [phone] Eric Pineda M.D. [address] [place] [phone] 07/09/2024 8:00 AM RUG TOUCH UP PAINTER - 07/09/2024 8:54 AM RUG TOUCH UP PAINTER Surgery Outpatient Procedure Center in [place], [place] [address] [place] [address] Eric Pineda M.D. [address] [place] [address] EXCHANGE URETERAL STENT Scheduled Procedures Name Priority Associated Diagnoses Date/Ti me EXCHANGE URETERAL STENT Obstruction Ureter 07/09/2024 8:00 AM RUG TOUCH UP PAINTER documented as of this encounter Procedures Procedure [...] P.A. LAB BLOOD ADD-ON Performing Organization Address City/[facility]/ZIP Co de Phone Number [facility] [address] [address], [facility] [place] [phone] * (ABNORMAL) Hemoglobin A1c (04/15/2024 4:33 PM [...] P.A. LAB BLOOD ADD-ON Performing Organization Address City/[facility]/ZIP Co de Phone Number [facility] [address] [place] [address], [facility] [place] [phone] * (ABNORMAL) Lipid Panel (04/15/2024 4:33 PM [...] 04/15/2024 4:36 PM CDT Claire Shafer Tony PATEL, P.A.-C., P.A. LAB BLOOD ADD-ON [facility] [address] [place] [address], [facility] [place] [address] [place] [phone] * Basic Metabolic Panel (04/15/2024 4:33 PM [...] Claire PATEL, P.A.-C., P.A. LAB BLOOD ADD-ON [facility] [address] [place] [address], [facility] [place] [address] [place] [phone] * (ABNORMAL) CBC with Differential, Blood (04/15/2024 [...] Claire PATEL P.A.-C., P.A. LAB BLOOD ADD-ON [facility] 701 [facility] [place] [address], [facility] [place] [facility] [place] [phone] documented in this encounter Visit Diagnoses Diagnosis Preoperative Exam Screening Lipid Encounter For Screening For Cardiovascular Disorders Screening Examination Diabetes Mellitus Obstruction Ureter documented in this encounter Care Teams Skin Peeling Machine Operator Relationship Specialty Start Date End Date Claire Jimenez MPAS, P.A.-C., P.A. [facility] [place] [phone] PCP - General Family Medicine 04/01/24 documented as of this encounter
--- OUTSIDE RECORDS SUMMARY | 2024-05-15 09:54 | XMS_ITS | Encounter Summary ---
Author Organization [facility] Address [address] [place] [address] Care Team Providers Care Floor Covering Contractor Name Role Phone Claire Jimenez P.A.-C., P.A. Primary Care Provider Reason for Referral * Outpatient (Routine) - Closed Specialty Diagnoses / Procedures Referred By Lucinda franco Referred To Contact Diagnoses Preoperative Exam Procedures ECG 12 Lead Claire Jimenez MPAS, P.A.-C., P.A. [address] [place] [phone] [facility] Referral ID Status Reason Start Date Expiration Date Visits Re quested Visits Authorized [id number] Closed 04/15/2024 04/15/2025 1 1 Reason for Visit * Outpatient (Routine) - Closed Specialty Diagnoses / Procedures Referred By Lucinda franoc Referred To Contact Diagnoses Preoperative Exam Procedures ECG 12 Lead Claire Jimenez MPAS, P.A.-C., P.A. [address] [place] [phone] [facility] Region Referral ID Status Reason Start Date Expiration Date Visits Re quested Visits Authorized [id number] Closed 04/15/2024 04/15/2025 1 1 Encounter Details Date Type Department Care Team (Latest Contact Info) Description 04/15/2024 4:40 PM CDT - 04/15/2024 11:59 PM CDT Hospital Encounter Department of Radiology in [place], [place] [address] [place] [phone] Claire Jimenez MPAS, P.A.-C., P.A. [address] [place] [phone] Preoperative Exam Discharge Disposition: Home or Self Care Social History Tobacco Use Types Packs/Day Years Used Date Smoking Tobacco: Never Smokeless Tobacco: Never Alcohol Use Standard Drinks/Week Comments Yes 2 (1 standard drink = 0.6 oz pur e alcohol) [facility] Utilities Answer Date Recorded In the past 12 months has [employer], [employer], oil, or water [employer] threatened to shut off services in your [...] week 10/27/2022 How often do you attend [facility] or zoroastrian services? More than 4 times per year 10/27/2022 Do you belong to any clubs o r organizations such as orthodox groups, unions, fraternal or athletic groups, or [...] Answer Date Recorded PHQ-2 Score 2 04/09/2024 [facility] of Occupat ional Health - Occupational [...] your living situation today? I have a [facility] to live 02/03/2024 Education Answer Date [...] each by mouth daily. Med Name: RAMOS TARKisha albuterol 90 mcg/actuation inhaler Inhale 2 puffs. 03/25/202412/2023 documented as of this encounter Plan of Treatment Upcoming Encounters Date Type Department Care Team (Latest Contact Info) Description 05/24/2024 10:00 AM CDT Comprehensive Visit Department of Physical Medicine and Rehabilitation in [address] [phone] OliverRacheal gonsalez APRN, C.N.P., D.N.P. [address] [place] [phone] Jazmyne Venegas P.T. [address] [place] [phone] 06/25/2024 9:10 AM CDT Appointment Department of Laboratory Medicine in [place], [place] [address] [place] [phone] Laly Carrasco APRN, C.N.P., D.N.P. [address] [place] [phone] 07/09/2024 8:00 AM MUSIC THERAPY SPECIALIST Hospital Encounter Outpatient Procedure Center in [place], [place] [address] [place] [phone] Eric Pineda M.D. [address] [place] [phone] 07/09/2024 8:00 AM MUSIC THERAPY SPECIALIST - 07/09/2024 8:54 AM MUSIC THERAPY SPECIALIST Surgery Outpatient Procedure Center in [place], [place] [address] [place] [address] Eric Pineda M.D. [address] [place] [phone] EXCHANGE URETERAL STENT Scheduled Procedures Name Priority Associated Diagnoses Date/Ti me EXCHANGE URETERAL STENT Obstruction Ureter 07/09/2024 8:00 AM MUSIC THERAPY SPECIALIST documented as of this encounter Procedures Procedure Name Priority Date/Time Associated Diagnosis Comments ECG Routine 04/15/2024 4:28 PM CDT Preoperative Exam documented in this encounter Results * ECG 12 Lead (04/15/2024 4:28 PM CDT) Ventricular Rate ECG/Min 82 BPM MUSE ID Interval 198 ms MUSE QRSD Interval 82 ms MUSE QT Interval 388 ms MUSE QTC Interval 453 ms MUSE P [place] 69 degrees MUSE R [place] 31 degrees MUSE T Wave [place] 69 degrees MUSE 04/15/2024 4:28 PM CDT [...] this encounter Visit Diagnoses Diagnosis Preoperative Exam Obstruction Ureter documented in this encounter Care Teams Floor Covering Contractor Relationship Specialty Start Date End Date Claire Jimenez MPAS, P.A.Hebert., P.A. [address] [place] [phone] PCP - General Family Medicine 04/01/24 documented as of this encounter
--- OUTSIDE RECORDS SUMMARY | 2024-05-15 09:54 | XMS_ITS | Encounter Summary ---
Author Organization [facility] Address [address] [place] [address] Care Team Providers Care Lead Fabricator Name Role Phone Claire Jimenez P.A.-C., P.A. Primary Care Provider Encounter Details Date Type Department Care Team (Late st Contact Info) Description 04/19/2024 Clinical Communication Department of Family Medicine, [facility], in [place], [place] [address] [place] [phone] Claire Jimenez MPAS, P.A.-C., P.A. [address] [place] [phone] Social History Tobacco Use Types Packs/Day Years Used Date Smoking Tobacco: Never Smokeless Tobacco: Never Alcohol Use Standard Drinks/Week Comments Yes 2 (1 standard drink = 0.6 oz pur e alcohol) [facility] Utilities Answer Date Recorded In the [...] often do you attend chur ch or latter day services? More than 4 times per year 10/27/2022 Do you belong to any clubs o r organizations such as nondenominational groups, unions, fraternal or athletic groups, or [...] Answer Date Recorded PHQ-2 Score 2 04/09/2024 [facility] of Occupat ional Health - [...] of Physical Medicine and Rehabilitation in [address] [phone] Racheal Terry APRN, C.N.P., D.N.P. [address] [place] [phone] Jazmyne Venegas P.T. [address] [place] [phone] 06/25/2024 9:10 AM CDT Appointment Department of Laboratory Medicine in [address] [phone] Laly Carrasco APRN, C.N.P., D.N.P. [address] [place] [phone] 07/09/2024 8:00 AM GENERATION MANAGER Hospital Encounter Outpatient Procedure Center in [place], [place] [address] [place] [phone] Eric Pineda M.D. [address] [place] [phone] 07/09/2024 8:00 AM GENERATION MANAGER - 07/09/2024 8:54 AM GENERATION MANAGER Surgery Outpatient Procedure Center in [place], [place] [address] [place] [phone] Eric Pineda M.D. [address] [place] [phone] EXCHANGE URETERAL STENT Scheduled Procedures Name Priority Associated Diagnoses Date/Ti me EXCHANGE URETERAL STENT Obstruction Ureter 07/09/2024 8:00 AM GENERATION MANAGER documented as of this encounter Visit Diagnoses Not on filedocumented in this encounter Care Teams Lead Fabricator Relationship Specialty Start Date End Date Claire Jimenez AMANDA, Mike, P.A. [address] [place] [phone] PCP - General Family Medicine 04/01/24 documented as of this encounter
--- OUTSIDE RECORDS SUMMARY | 2024-05-15 09:54 | XMS_ITS | Encounter Summary ---
Author Organization [facility] Address [address] [place] [address] Care Team Providers Care Railroad Car Painter Name Role Phone No Contact, Pcp Primary Care Provider Unavailabl e Encounter Details Date Type Department Care Team (Late st Contact Info) Description 02/29/2024 Orders Only Department of Radiation Oncology in [place], [place] [address] [place] [phone] Michael Kingsley, TIMOTHY, C.N.P., D.N.P. [address] [place] [phone] Primary Malignant Neoplasm Of Prostate (HCC) (Primary Dx) Social History Tobacco Use Types Packs/Day Years Used Date Smoking Tobacco: Never Smokeless Tobacco: Never Alcohol Use Standard Drinks/Week Comments Yes 2 (1 standard drink = 0.6 oz pur e alcohol) [facility] Utilities Answer Date Recorded In the [...] How often do you attend chur or episcopalian services? More than 4 times per year [...] Score 0 10/27/2022 [facility] [place] of Occupat ional Health - Occupational Stress [...] your living situation today? I have a [facility] place to live 02/03/2024 Education [...] of Physical Medicine and Rehabilitation in [address] [phone] Racheal Terry APRN, C.N.P., D.N.P. [address] [place] [phone] Jazmyne Venegas P.T. [address] [place] [phone] 06/25/2024 9:10 AM CDT Appointment Department of Laboratory Medicine in [address] [phone] Laly Carrasco, TIMOTHY, C.N.P., D.N.P. [address] [place] [phone] 07/09/2024 8:00 AM BUSINESS SERVICES MANAGER Hospital Encounter Outpatient Procedure Center in [place], [place] [address] [place] [phone] Eric Pineda M.D. [address] [place] [phone] 07/09/2024 8:00 AM BUSINESS SERVICES MANAGER - 07/09/2024 8:54 AM BUSINESS SERVICES MANAGER Surgery Outpatient Procedure Center in [place], [place] [address] [place] [phone] Eric Pineda M.D. [address] [place] [phone] EXCHANGE URETERAL STENT Scheduled Procedures Name Priority Associated Diagnoses Date/Ti me EXCHANGE URETERAL STENT Obstruction Ureter 07/09/2024 8:00 AM BUSINESS SERVICES MANAGER documented as of this encounter Results * [...] APRN, C.N.P., D.N.P. LAB B LOOD ADD-ON [facility] [address] [place] [address], [facility] [place] [address] [place] [phone] documented in this encounter Visit Diagnoses Diagnosis Primary Malignant Neoplasm Of Prostate (HCC)- Primary Obstruction Ureter documented in this encounter Care Teams Railroad Car Painter Relationship Specialty Start Date End Date No Contact, Pcp PCP - General Family Medicine 07/31/19 03/31/24 documented as of this encounter
--- OUTSIDE RECORDS SUMMARY | 2024-05-15 09:54 | XMS_ITS | Encounter Summary ---
Author Organization [facility] Address [address] [place] [address] Care Team Providers Care Vehicle Detailer Name Role Phone Claire Jimenez P.A.-C., P.A. Primary Care Provider Reason for Referral * Outpatient (Routine) - Closed Specialty Diagnoses / Procedures Referred By Lucinda franco Referred To Contact Diagnoses Preoperative Exam Procedures ECG 12 Lead Claire Jimenez MPAS, P.A.-C., P.A. [address] [place] [address] [facility] Region Referral ID Status Reason Start Date Expiration Date Visits Re quested Visits Authorized [id number] Closed 04/15/2024 04/15/2025 1 1 Reason for Visit * Reason Comments Pre-op Exam Hip surgery * Appointment Request (Routine) - Closed Specialty Diagnoses / Procedures Referred By Lucinda franco Referred To Contact Family Medicine Referral ID Status Reason Start Date Expiration Date Visits Re quested Visits Authorized [id number] Closed 04/01/2024 04/01/2025 1 1 Encounter Details Date Type Department Care Team (Latest Contact Info) Description 04/15/2024 2:15 PM CDT Office Visit Department of Family Medicine, [facility], in [place], [place] [address] [place] [address] Claire Jimenez MPAS, PDrea.-C., P.A. [address] [place] [phone] Preoperative Exam (Primary Dx); Primary [...] drink = 0.6 oz pur e alcohol) [facility] [employer] Answer Date Recorded In the past 12 months has [employer], oil, or water [employer] threatened to shut off services in your [...] often do you attend [facility] or congregational services? More than 4 times per year 10/27/2022 Do you belong to any clubs o r organizations such as anabaptism groups, unions, fraternal or athletic groups, or [...] 2 04/09/2024 [facility] of Occupat ional [facility] - Occupational Stress Questionnaire Answer Date [...] living situation today? I have a [facility] place to live 02/03/2024 Education Answer [...] so already! Please call the clinic at [phone] or send portal message if future questions or concerns arise. Claire Jimenez P.A.-C., P.A. [address] [place] [address] [facility] DR. YONI LUTZ MD [address] [place] [address] documented in this encounter Progress Notes * Claire Jimenez MPAS, P.A.-C., P.A. - 04/15/2024 2:15 PM CDT SUBJECTIVE Breezy Paz [phone] DATE OF SURGERY: 04/30/2024 Surgeon: Dr. Yoni Lutz MD [facility] [place], [place] DATE OF EXAM: 04/15/24 TYPE OF [...] Procedure: COLONOSCOPY-a; Surgeon: Jass Macias M.D.; Location: [facility] GI LAB CYSTOSCOPY RIGID N/A 11/14/2022 [...] - new prescription ordered and faxed to [facility] in [place] - sleep study on 05/05/2004 showed mild [...] to new diagnosis of heart murmur at [facility] (results available on document viewer for review) [...] Department of Physical Medicine and Rehabilitation in [address] [phone] Racheal Terry APRN, C.N.P., D.N.P. [address] [place] [phone] Jazmyne Venegas P.T. [address] [place] [phone] 06/25/2024 9:10 AM CDT Appointment Department of Laboratory Medicine in [address] [phone] Laly Carrasco APRN, C.N.P., D.N.P. [address] [place] [phone] 07/09/2024 8:00 AM TALENT ACQUISITION DIRECTOR Hospital Encounter Outpatient Procedure Center in [place], [place] [address] [place] [address] Eric Pineda M.D. [address] [place] [phone] 07/09/2024 8:00 AM TALENT ACQUISITION DIRECTOR - 07/09/2024 8:54 AM TALENT ACQUISITION DIRECTOR Surgery Outpatient Procedure Center in [place], [place] [address] [place] [phone] Eric Pineda M.D. [address] [place] [phone] EXCHANGE URETERAL STENT Scheduled Orders Name Type Priority Associated Diagnoses Orde r Schedule Lipid Panel Lab Routine Hyperlipidemia Expected: 07/17/2024 (Approximate), Expires: 04/16/2025 Hepatic Function Panel Lab Routine Hyperlipidemia Expected: 07/17/2024 (Approximate), Expires: 04/16/2025 Scheduled Procedures Name Priority Associated Diagnoses Date/Ti me EXCHANGE URETERAL STENT Obstruction Ureter 07/09/2024 8:00 AM TALENT ACQUISITION DIRECTOR documented as of this encounter Results * [...] P.A. LAB BLOOD ADD-ON Performing Organization Address [facility] Co de Phone Number [facility] [address] [place] [phone], [facility] in [address] [phone] * (ABNORMAL) Hemoglobin A1c (04/15/2024 4:33 PM CDT) Pathologist [facility] [place] Hemoglobin A1c, B 6.0(H) 4.2 - 5.6 % 04/15/2024 5:01 PM CDT [facility] Comment: Hemoglobin A1c values of 5.7-6.4 percent indicate an increased risk for developing diabetes mellitus. In diabetic patients, HbA1c goals should be discussed with healthcare provider. Blood (Blood, Venous) 04/15/2024 4:33 PM CDT 04/15/2024 4:36 PM CDT Joslyn Henry.AdelaidaC., P.A. LAB BLOOD ADD-ON Performing Organization Address City/[facility]/ZIP Co de Phone Number [facility] [address] [place] [phone], [facility] in [place] [address] [place] [address] * (ABNORMAL) Lipid Panel (04/15/2024 4:33 PM [...] CDT 04/15/2024 4:36 PM CDT Claire PATEL, P.A.-Bouchra., P.A. LAB BLOOD ADD-ON [facility] [address] [place] [address], [facility] in [place] [address] [place] [address] * Basic Metabolic Panel (04/15/2024 4:33 PM [...] Claire PATEL P.A.-C., P.A. LAB BLOOD ADD-ON [facility] [address] [facility] [address], [facility] in [place] [address], [place] [phone] * (ABNORMAL) CBC with Differential, Blood (04/15/2024 [...] PM CDT 04/15/2024 4:36 PM CDT Claire Jimenez MPAS, P.A.-C., P.A. LAB BLOOD ADD-ON [facility] [address], [place] [address], [facility] in [place] [address] [place] [address] [phone] * ECG 12 Lead (04/15/2024 4:28 PM CDT) Ventricular Rate ECG/Min 82 BPM MUSE MI Interval 198 ms MUSE QRSD Interval 82 ms MUSE QT Interval 388 ms MUSE QTC Interval 453 ms MUSE P [place] 69 degrees MUSE R [place] 31 degrees MUSE T Wave [place] 69 degrees MUSE 04/15/2024 4:28 PM CDT [...] PreDiabetes Stenosis Aortic Valve Acquired Preoperative Exam Obstruction Ureter documented in this encounter Care Teams Vehicle Detailer Relationship Specialty Start Date End Date Claire Jimenez MPAS, P.A.-C., P.A. [address] [phone] PCP - General Family Medicine 04/01/24 documented as of this encounter
--- OUTSIDE RECORDS SUMMARY | 2024-05-15 09:54 | XMS_ITS | Encounter Summary ---
Author Organization [facility] Address [address] [place] [address] Care Team Providers Care Pipe Changer Name Role Phone No Contact, Pcp Primary Care Provider Unavailabl e Encounter Details Date Type Department Care Team (Latest Contact Info) Description 03/01/2024 9:12 AM CDT - 03/01/2024 11:59 PM CDT Hospital Encounter Department of Laboratory Medicine in [place], [place] [address] [place] [phone] Michael Kingsley, TIMOTHY, C.N.P., D.N.P. [address] [place] [phone] Primary Malignant Neoplasm Of Prostate (HCC) Discharge Disposition: Home or Self Care Social History Tobacco Use Types Packs/Day Years Used Date Smoking Tobacco: Never Smokeless Tobacco: Never Alcohol Use Standard Drinks/Week Comments Yes 2 (1 standard drink = 0.6 oz pur e alcohol) [facility] Utilities Answer Date Recorded In [...] often do you attend chur ch or confucianist services? More than 4 times per year [...] Answer Date Recorded PHQ-2 Score 0 10/27/2022 [facility] [place] of Occupat ional Health - Occupational Stress [...] living situation today? I have a [facility] place to live 02/03/2024 Education Answer [...] Department of Physical Medicine and Rehabilitation in [address] [phone] Racheal Terry APRN, C.N.P., D.N.P. [address] [place] [phone] Jazmyne Venegas P.T. [address] [place] [phone] 06/25/2024 9:10 AM CDT Appointment Department of Laboratory Medicine in [address] [phone] Laly Carrasco APRN, C.N.P., D.N.P. [address] [place] [phone] 07/09/2024 8:00 AM [facility] Hospital Encounter Outpatient Procedure Center in [place], [place] [address] [place] [phone] Eric Pineda M.D. [address] [place] [phone] 07/09/2024 8:00 AM SHIELD INSTALLER - 07/09/2024 8:54 AM SHIELD INSTALLER Surgery Outpatient Procedure Center in [place], [place] [address] [place] [address] Eric Pineda M.D. [address] [place] [phone] EXCHANGE URETERAL STENT Scheduled Procedures Name Priority Associated Diagnoses Date/Ti me EXCHANGE URETERAL STENT Obstruction Ureter 07/09/2024 8:00 AM SHIELD INSTALLER documented as of this encounter Procedures Procedure [...] APRN, C.N.P., D.N.P. LAB B LOOD ADD-ON [facility] [address] [place] [address], [facility] in [place] [address] [place] [address] documented in this encounter Visit Diagnoses Diagnosis Primary Malignant Neoplasm Of Prostate (HCC) Obstruction Ureter documented in this encounter Care Teams Pipe Changer Relationship Specialty Start Date End Date No Contact, Pcp PCP - General Family Medicine 07/31/19 03/31/24 documented as of this encounter
--- OUTSIDE RECORDS SUMMARY | 2024-05-15 09:55 | XMS_ITS | Encounter Summary ---
Author Organization [facility] Address [address] [place] [address] Care Team Providers Care Art History Professor Name Role Phone No Contact, Pcp Primary Care Provider Unavailabl e Encounter Details Date Type Department Care Team (Late st Contact Info) Description 02/09/2024 1:55 PM CDT Anesthesia Event Outpatient Procedure Center in [place], [place] [address] [place] [phone] Niya Gastelum APRN, JC [address] [place] [phone] Amy Carranza M.D. [address] [place] [phone] Anesthesia Record Procedure Summary Procedure Name Responsible Anesthesiologist Anesthesia Start Time Anesthesia Stop Time EXCHANGE URETERAL STENT (Right) Niya Gastelum APRN, GRANITE FABRICATOR 02/09/24 1355 02/09/24 1454 Events Date Time [...] drink = 0.6 oz pur e alcohol) [facility] Utilities Answer Date Recorded In the past 12 months has [facility] [employer], [employer], oil, or water [employer] threatened to shut off services in your [...] How often do you attend chur or methodist services? More than 4 times per year 10/27/2022 Do you belong to any clubs o r organizations such as rastafarian groups, unions, fraternal or athletic groups, or [...] Answer Date Recorded PHQ-2 Score 0 10/27/2022 [facility] of Occupat [facility] - Occupational Stress Questionnaire Answer Date [...] your living situation today? I have a [facility] place to live 02/03/2024 Education Answer [...] Procedure Summary Date: 02/09/24 Room / Location: [place] [address] [place] 723 / [facility] in [place], [place] Anesthesia Start: 1355 Anesthesia Stop: 1454 [...] Ureteral Stricture Not Elsewhere Classified [N13.1]. Location: [place] [address] / [facility] in [place], [place] Surgeons: Sylvia Toscano D.O. Pertinent components [...] with patient /legal guardian or through an healthcare interpreter. Risks/Benefits/Alternatives of Blood transfusion discussed with patient [...] of Physical Medicine and Rehabilitation in [address] [phone] Racheal Terry APRN, C.N.P., D.N.P. [address] [place] [phone] Jazmyne Venegas P.T. [address] [place] [phone] 06/25/2024 9:10 AM CDT Appointment Department of Laboratory Medicine in [address] [phone] Laly Carrasco APRN, C.N.P., D.N.P. [address] [place] [phone] 07/09/2024 8:00 AM [facility] Hospital Encounter Outpatient Procedure Center in [place], [place] [address] [place] [phone] Eric Pineda M.D. [address] [place] [phone] 07/09/2024 8:00 AM RECLAMATION WORKER - 07/09/2024 8:54 AM [facility] Surgery Outpatient Procedure Center in [place], [place] [address] [place] [phone] Eric Pineda M.D. [address] [place] [address], [place] [address] EXCHANGE URETERAL STENT Scheduled Procedures Name Priority Associated Diagnoses Date/Ti me EXCHANGE URETERAL STENT Obstruction Ureter 07/09/2024 8:00 AM RECLAMATION WORKER documented as of this encounter Visit Diagnoses [...] mg documented in this encounter Care Teams Art History Professor Relationship Specialty Start Date End Date No Contact, Pcp PCP - General Family Medicine 07/31/19 03/31/24 documented as of this encounter
--- OUTSIDE RECORDS SUMMARY | 2024-05-15 09:55 | XMS_ITS | Encounter Summary ---
Author Organization [facility] Address [address] [place] [address] Care Team Providers Care Coordinator Of Library Services Name Role Phone No Contact, Pcp Primary Care Provider Unavailabl e Encounter Details Date Type Department Care Team (Late st Contact Info) Description 02/12/2024 Orders Only Department of Urology in [place], [place] [address] [place] [phone] Ashlee Fitzpatrick, RDavidN. [address] [place] [phone] Social History Tobacco Use Types Packs/Day Years Used Date Smoking Tobacco: Never Smokeless Tobacco: Never Alcohol Use Standard Drinks/Week Comments Yes 2 (1 standard drink = 0.6 oz pur e alcohol) [facility] Utilities Answer Date Recorded In the past 12 months has e [employer], gas, oil, or water [facility] threatened to shut off services in your [...] often do you attend chur ch or rastafarian services? More than 4 times per year 10/27/2022 Do you belong to any clubs o r organizations such as episcopalian groups, unions, fraternal or athletic groups, or [...] Answer Date Recorded PHQ-2 Score 0 10/27/2022 [facility] of Occupat ional Health - [...] Department of Physical Medicine and Rehabilitation in [place], [place] [address] [place] [phone] Racheal Terry APRN, C.N.P., D.N.P. [address] [place] [phone] Jazmyne Venegas P.T. [address] [place] [phone] 06/25/2024 9:10 AM CDT Appointment Department of Laboratory Medicine in [place], [place] [address] [place] [phone] Laly Carrasco APRN, C.N.P., D.N.P. [address] [place] [phone] 07/09/2024 8:00 AM FORGING MACHINE HAND Hospital Encounter Outpatient Procedure Center in [place], [place] [address] [place] [phone] Eric Pineda M.D. [address] [place] [phone] 07/09/2024 8:00 AM FORGING MACHINE HAND - 07/09/2024 8:54 AM FORGING MACHINE HAND Surgery Outpatient Procedure Center in [place], [place] [address] [place] [phone] Eric Pineda M.D. [address] [place] [phone] EXCHANGE URETERAL STENT Scheduled Procedures Name Priority Associated Diagnoses Date/Ti me EXCHANGE URETERAL STENT Obstruction Ureter 07/09/2024 8:00 AM FORGING MACHINE HAND documented as of this encounter Visit Diagnoses Not on filedocumented in this encounter Care Teams Coordinator Of Library Services Relationship Specialty Start Date End Date No Contact, Pcp PCP - General Family Medicine 07/31/19 03/31/24 documented as of this encounter
--- OUTSIDE RECORDS SUMMARY | 2024-05-15 09:55 | XMS_ITS | Encounter Summary ---
Author Organization [facility] Address [address] [place] [address] Care Team Providers Care Sole Leveling Machine Operator Name Role Phone No Contact, Pcp Primary Care Provider Unavailabl e Encounter Details Date Type Department Care Team (Late st Contact Info) Description 01/30/2024 Clinical Communication Department of Urology in [place], [place] [address] [place] [phone] Liz Ortez Social History Tobacco Use Types Packs/Day Years Used Date Smoking Tobacco: Never Smokeless Tobacco: Never Alcohol Use Standard Drinks/Week Comments Yes 2 (1 standard drink = 0.6 oz pur e alcohol) [facility] Utilities Answer Date Recorded In the past 12 months has [facility] [employer], gas, oil, or water [employer] threatened to shut off services in your [...] How often do you attend chur or caodaism services? More than 4 times per year 10/27/2022 Do you belong to any clubs o r organizations such as oriental orthodox groups, unions, fraternal or athletic groups, [...] your living situation today? I have a [facility] place to live 02/03/2024 Education Answer [...] Department of Physical Medicine and Rehabilitation in [place], [place] [address] [place] [phone] Racheal Terry, TIMOTHY, C.N.P., D.N.P. [address] [place] [phone] Jazmyne Venegas P.T. [address] [place] [phone] 06/25/2024 9:10 AM CDT Appointment Department of Laboratory Medicine in [place], [place] [phone] Laly Carrasco, TIMOTHY, C.N.P., D.N.P. [address] [place] [phone] 07/09/2024 8:00 AM TELLER SUPERVISOR Hospital Encounter Outpatient Procedure Center in [place], [place] [address] [place] [phone] Eric Pineda M.D. [address] [place] [phone] 07/09/2024 8:00 AM TELLER SUPERVISOR - 07/09/2024 8:54 AM TELLER SUPERVISOR Surgery Outpatient Procedure Center in [place], [place] [address] [place] [phone] Eric Pineda M.D. [address] [place] [phone] EXCHANGE URETERAL STENT Scheduled Procedures Name Priority Associated Diagnoses Date/Ti me EXCHANGE URETERAL STENT Obstruction Ureter 07/09/2024 8:00 AM TELLER SUPERVISOR documented as of this encounter Visit Diagnoses Not on filedocumented in this encounter Care Teams Sole Leveling Machine Operator Relationship Specialty Start Date End Date No Contact, Pcp PCP - General Family Medicine 07/31/19 03/31/24 documented as of this encounter
--- OUTSIDE RECORDS SUMMARY | 2024-05-15 09:55 | XMS_ITS | Encounter Summary ---
Author Organization [facility] Address [address] [place] [address] Care Team Providers Care Community Outreach Worker Name Role Phone No Contact, Pcp Primary Care Provider Unavailabl e Encounter Details Date Type Department Care Team (Latest Contact Info) Description 02/09/2024 12:20 PM CDT - 02/09/2024 4:32 PM CDT Hospital Encounter Outpatient Procedure Center in [place], [place] [address] [place] [address] Sylvia Toscano D.O. [address] [place] [phone] Discharge Disposition: Home or Self Care Social [...] any clubs o r organizations such as bahai groups, unions, fraternal or athletic groups, or [...] Answer Date Recorded PHQ-2 Score 0 10/27/2022 [facility] [place] of Occupat ional Health - Occupational Stress [...] your living situation today? 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 [address] [place] [phone] Jazmyne Venegas P.T. [address] [place] [phone] 06/25/2024 9:10 AM CDT Appointment Department of Laboratory Medicine in [address] [phone] Laly Carrasco APRN, C.N.P., D.N.P. [address] [place] [phone] 07/09/2024 8:00 AM FRUIT PITTER Hospital Encounter Outpatient Procedure Center in [place], [place] [address] [place] [phone] Eric Pineda M.D. [address] [place] [phone] 07/09/2024 8:00 AM FRUIT PITTER - 07/09/2024 8:54 AM FRUIT PITTER Surgery Outpatient Procedure Center in [place], [place] [address] [place] [phone] Eric Pineda M.D. [address] [place] [phone] EXCHANGE URETERAL STENT Scheduled Procedures Name Priority Associated Diagnoses Date/Ti me EXCHANGE URETERAL STENT Obstruction Ureter 07/09/2024 8:00 AM FRUIT PITTER documented as of this encounter Procedures Procedure [...] 1 Hour (02/09/2024 3:21 PM CDT) Narrative [id number] - 02/09/2024 3:22 PM CDT This exam does not require a radiologist review or interpretation. Please refer to the patient's medical record on this date for clinical details. Nanda Fu P.A.-C. 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
--- OUTSIDE RECORDS SUMMARY | 2024-05-15 09:55 | XMS_ITS | Encounter Summary ---
Author Organization [facility] Address [address] [place] [address] Care Team Providers Care Freight Brake Operator Name Role Phone No Contact, Pcp Primary Care Provider Unavailabl e Encounter Details Date Type Department Care Team (Late st Contact Info) Description 02/09/2024 1:01 PM CDT - 02/09/2024 2:04 PM CDT Surgery Outpatient Procedure Center in [place], [place] [address] [place] [phone] Sylvia Toscano D.O. [address] [place] [phone] EXCHANGE URETERAL STENT Social History Tobacco Use Types Packs/Day Years Used Date Smoking Tobacco: Never Smokeless Tobacco: Never Alcohol Use Standard Drinks/Week Comments Yes 2 (1 standard drink = 0.6 oz pur e alcohol) [facility] Utilities Answer Date Recorded In the [...] How often do you attend chur or adventist services? More than 4 times per year 10/27/2022 Do you belong to any clubs o r organizations such as gnosticist groups, unions, fraternal or athletic groups, or [...] 0 10/27/2022 [facility] [place] of Occupat ional Health - Occupational Stress [...] your living situation today? 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 [address] [place] [phone] Jazmyne Venegas P.T. [address] [place] [phone] 06/25/2024 9:10 AM CDT Appointment Department of Laboratory Medicine in [address] [phone] Laly Carrasco APRN, C.N.P., D.N.P. [address] [place] [phone] 07/09/2024 8:00 AM VEGETABLE HARVEST WORKER Hospital Encounter Outpatient Procedure Center in [place], [place] [address] [place] [phone] Eric Pineda M.D. [address] [place] [phone] 07/09/2024 8:00 AM VEGETABLE HARVEST WORKER - 07/09/2024 8:54 AM VEGETABLE HARVEST WORKER Surgery Outpatient Procedure Center in [place], [place] [address] [place] [phone] Eric Pineda M.D. [address] [place] [phone] EXCHANGE URETERAL STENT Scheduled Procedures Name Priority Associated Diagnoses Date/Ti me EXCHANGE URETERAL STENT Obstruction Ureter 07/09/2024 8:00 AM VEGETABLE HARVEST WORKER documented as of this encounter Procedures Procedure [...] 1 Hour (02/09/2024 3:21 PM CDT) Narrative [id number] - 02/09/2024 3:22 PM CDT This exam does not require a radiologist review or interpretation. Please refer to the patient's medical record on this date for clinical details. Nanda Fu P.A.-C. 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
--- OUTSIDE RECORDS SUMMARY | 2024-05-15 09:55 | XMS_ITS | Encounter Summary ---
Author Organization [facility] Address [address] [place] [address] Care Team Providers Care Stroboscope Operator Name Role Phone No Contact, Pcp Primary Care Provider Unavailabl e Reason for Visit * Reason Onset Date Comments Appt Request 01/18/2024 Encounter Details Date Type Department Care Team (Late st Contact Info) Description 01/18/2024 Clinical Communication Department of Urology in [place], [place] [address] [place] [phone] Nanda Fu, P.A.-C. [address] [place] [phone] Appt Request Social History Tobacco Use Types Packs/Day Years Used Date Smoking Tobacco: Never Smokeless Tobacco: Never Alcohol Use Standard Drinks/Week Comments Yes 2 (1 standard drink = 0.6 oz pur e alcohol) [facility] Utilities Answer Date Recorded In [...] How often do you attend chur or bahai services? More than 4 times per year [...] Answer Date Recorded PHQ-2 Score 0 10/27/2022 [facility] [place] of Occupat ional Health - Occupational Stress [...] your living situation today? I have a [facility] place to live 02/03/2024 Education Answer Date [...] Department of Physical Medicine and Rehabilitation in [place], [place] [address] [place] [phone] Racheal Terry APRN, C.N.P., D.N.P. [address] [place] [phone] Jazmyne Venegas P.T. [address] [place] [phone] 06/25/2024 9:10 AM CDT Appointment Department of Laboratory Medicine in [place], [place] [address] [place] [phone] Laly Carrasco, TIMOTHY, C.N.P., D.N.P. [address] [place] [phone] 07/09/2024 8:00 AM FRANCHISE CONSULTANT Hospital Encounter Outpatient Procedure Center in [place], [place] [address] [place] [phone] Eric Pineda M.D. [address] [place] [phone] 07/09/2024 8:00 AM FRANCHISE CONSULTANT - 07/09/2024 8:54 AM FRANCHISE CONSULTANT Surgery Outpatient Procedure Center in [place], [place] [address] [place] [phone] Eric Pineda M.D. [address] [place] [phone] EXCHANGE URETERAL STENT Scheduled Procedures Name Priority Associated Diagnoses Date/Ti me EXCHANGE URETERAL STENT Obstruction Ureter 07/09/2024 8:00 AM FRANCHISE CONSULTANT documented as of this encounter Visit Diagnoses Not on filedocumented in this encounter Care Teams Stroboscope Operator Relationship Specialty Start Date End Date No Contact, Pcp PCP - General Family Medicine 07/31/19 03/31/24 documented as of this encounter
--- OUTSIDE RECORDS SUMMARY | 2024-05-15 09:55 | XMS_ITS | Encounter Summary ---
Author Organization [facility] Address [address] [place] [address] Care Team Providers Care Tree Inspector Name Role Phone No Contact, Pcp Primary [...] 0.6 oz pur e alcohol) [facility] Utilities Answer Date Recorded In the past 12 months has [facility] electric, gas, oil, or water [employer] threatened to shut off services in your [...] often do you attend chur ch or jew services? More than 4 times per year 10/27/2022 Do you belong to any clubs o r organizations such as sabianist groups, unions, fraternal or athletic groups, or [...] Answer Date Recorded PHQ-2 Score 0 10/27/2022 [facility] Questionnaire Answer Date [...] your living situation today? [facility] a [facility] 02/03/2024 Education Answer [...] Department of Physical Medicine and Rehabilitation in [address] [phone] Racheal Terry APRN, C.N.P., D.N.P. [address] [place] [phone] Jazmyne Venegas P.T. [address] [place] [phone] 06/25/2024 9:10 AM CDT Appointment Department of Laboratory Medicine in [address] [phone] Laly Carrasco APRN, C.N.P., D.N.P. [address] [place] [phone] 07/09/2024 8:00 AM AIRDROP SYSTEMS TECHNICIAN Hospital Encounter Outpatient Procedure Center in [place], [place] [address] [place] [phone] Eric Pineda M.D. [address] [place] [phone] 07/09/2024 8:00 AM AIRDROP SYSTEMS TECHNICIAN - 07/09/2024 8:54 AM AIRDROP SYSTEMS TECHNICIAN Surgery Outpatient Procedure Center in [place], [place] [address] [place] [phone] Eric Pineda M.D. [address] [place] [phone] EXCHANGE URETERAL STENT Scheduled Procedures Name Priority Associated Diagnoses Date/Ti me EXCHANGE URETERAL STENT Obstruction Ureter 07/09/2024 8:00 AM AIRDROP SYSTEMS TECHNICIAN documented as of this encounter Procedures Procedure [...] on filedocumented in this encounter Care Teams Tree Inspector Relationship Specialty Start Date End Date No Contact, Pcp PCP - General Family Medicine 07/31/19 03/31/24 documented as of this encounter
--- OUTSIDE RECORDS SUMMARY | 2024-05-15 09:55 | XMS_ITS | Encounter Summary ---
Author Organization [facility] Address [address] [place] [address] Care Team Providers Care Photoengraving Finisher Name Role Phone No Contact, Pcp Primary Care Provider Unavailabl e Reason for Visit * Outpatient (Routine) - Closed Specialty Diagnoses / Procedures Referred By Lucinda franco Referred To Contact Urology Nanda Fu P.A.-C. [address] [place] [phone] [facility] Referral ID Status Reason Start Date Expiration Date Visits Re quested Visits Authorized [id number] Closed 01/18/2024 07/19/2025 1 1 Encounter Details Date Type Department Care Team (Late st Contact Info) Description 02/08/2024 10:30 AM CDT Office Visit Department of Urology in [place], [place] [address] [place] [phone] Nanda Fu P.A.-Demetri [address] [place] [phone] Obstruction Ureter (Primary Dx) Social History Tobacco Use Types Packs/Day Years Used Date Smoking Tobacco: Never Smokeless Tobacco: Never Alcohol Use Standard Drinks/Week Comments Yes 2 (1 standard drink = 0.6 oz pur e alcohol) [facility] Utilities Answer Date Recorded In the past 12 months has th e electric, gas, oil, or water [employer] threatened to shut off services in your [...] often do you attend chur ch or nondenominational services? More than 4 times per year 10/27/2022 Do you belong to any clubs o r organizations such as tenriism groups, unions, fraternal or athletic groups, or [...] Answer Date Recorded PHQ-2 Score 0 10/27/2022 [facility] - Occupational Stress Questionnaire Answer Date [...] living situation today? I have a [facility] place to live 02/03/2024 Education Answer [...] the request of Nanda Fu P.A.-C. 200 [place] [phone] CHIEF COMPLAINT / REASON FOR VISIT Patient [...] a distal ureteral obstruction. 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 [...] of Physical Medicine and Rehabilitation in [address] [phone] Racheal Terry APRN, C.N.P., D.N.P. [address] [place] [phone] Jazmyne Venegas P.T. [address] [place] [phone] 06/25/2024 9:10 AM CDT Appointment Department of Laboratory Medicine in [address] [phone] Laly Carrasco APRN, C.N.P., D.N.P. [address] [place] [phone] 07/09/2024 8:00 AM RUST Hospital Encounter Outpatient Procedure Center in [place], [place] [address] [place] [phone] Eric Pineda M.D. [address] [place] [phone] 07/09/2024 8:00 AM JEWELRY MAKING INSTRUCTOR - 07/09/2024 8:54 AM RUST Surgery Outpatient Procedure Center in [place], [place] [address] [place] [phone] Eric Pineda M.D. [address] [place] [phone] EXCHANGE URETERAL STENT Scheduled Procedures Name Priority Associated Diagnoses Date/Ti me EXCHANGE URETERAL STENT Obstruction Ureter 07/09/2024 8:00 AM JEWELRY MAKING INSTRUCTOR documented as of this encounter Visit Diagnoses Diagnosis Obstruction Ureter- Primary Obstruction Ureter documented in this encounter Care Teams Photoengraving Finisher Relationship Specialty Start Date End Date No Contact, Pcp PCP - General Family Medicine 07/31/19 03/31/24 documented as of this encounter
--- OUTSIDE RECORDS SUMMARY | 2024-05-15 09:55 | XMS_ITS | Encounter Summary ---
Author Organization [facility] Address [address] [place] [address] Care Team Providers Care Pigment Mixer Name Role Phone No Contact, Pcp Primary Care Provider Unavailabl e Reason for Visit * Reason Onset Date Comments Pre-visit Intake 02/07/2024 Encounter Details Date Type Department Care Team (Latest Contact Info) Description 02/07/2024 12:15 PM CDT Clinical Communication Virtual Review in [place], [place] 200 [place] [phone] Pre-visit Intake Social History Tobacco Use Types Packs/Day Years Used Date Smoking Tobacco: Never Smokeless Tobacco: Never Alcohol Use Standard Drinks/Week Comments Yes 2 (1 standard drink = 0.6 oz pur e alcohol) [facility] Utilities Answer Date Recorded In the past 12 months has [employer], gas, oil, or water [employer] threatened to shut off services in your [...] How often do you attend chur or amish services? More than 4 times per year [...] Answer Date Recorded PHQ-2 Score 0 10/27/2022 [facility] [place] of Occupat ional Health - Occupational Stress [...] Department of Physical Medicine and Rehabilitation in [place], [place] [address] [place] [phone] Racheal Terry APRN, C.N.P., D.N.P. [address] [place] [phone] Jazmyne Venegas P.TDavid [address] [place] [phone] 06/25/2024 9:10 AM CDT Appointment Department of Laboratory Medicine in [place], [place] [address] [place] [phone] Laly Carrasco APRN, C.N.P., D.N.P. [address] [place] [phone] 07/09/2024 8:00 AM PLUMBER ASSISTANT Hospital Encounter Outpatient Procedure Center in [place], [place] [address] [place] [phone] Eric Pineda M.D. [address] [place] [phone] 07/09/2024 8:00 AM PLUMBER ASSISTANT - 07/09/2024 8:54 AM PLUMBER ASSISTANT Surgery Outpatient Procedure Center in [place], [place] [address] [place] [phone] Eric Pineda M.D. [address] [place] [phone] EXCHANGE URETERAL STENT Scheduled Procedures Name Priority Associated Diagnoses Date/Ti me EXCHANGE URETERAL STENT Obstruction Ureter 07/09/2024 8:00 AM PLUMBER ASSISTANT documented as of this encounter Visit Diagnoses Not on filedocumented in this encounter Care Teams Pigment Mixer Relationship Specialty Start Date End Date No Contact, Pcp PCP - General Family Medicine 07/31/19 03/31/24 documented as of this encounter
--- OUTSIDE RECORDS SUMMARY | 2024-05-15 09:55 | XMS_ITS | Encounter Summary ---
Author Organization [facility] Address [address] [place] [address] Care Team Providers Care Ct Scan Technician Name Role Phone No Contact, Pcp Primary Care Provider Unavailabl e Encounter Details Date Type Department Care Team (Late st Contact Info) Description 02/27/2024 Clinical Communication Department of Radiation Oncology in [place], [place] [address] [place] [phone] Michael Kingsley, TIMOTHY, C.N.P., D.N.P. [address] [place] [phone] Social History Tobacco Use Types Packs/Day Years Used Date Smoking Tobacco: Never Smokeless Tobacco: Never Alcohol Use Standard Drinks/Week Comments Yes 2 (1 standard drink = 0.6 oz pur e alcohol) [facility] Utilities Answer Date Recorded In [...] How often do you attend chur or nondenominational services? More than 4 times [...] Answer Date Recorded PHQ-2 Score 0 10/27/2022 [facility] [place] of Occupat ional Health - Occupational Stress [...] your living situation today? I have a [facility] place to live 02/03/2024 Education Answer [...] Department of Physical Medicine and Rehabilitation in [place], [place] [address] [place] [phone] Racheal Terry APRN, C.N.P., D.N.P. [address] [place] [phone] Jazmyne Venegas P.TDavid [address] [place] [phone] 06/25/2024 9:10 AM CDT Appointment Department of Laboratory Medicine in [place], [place] [address] [place] [phone] Laly Carrasco, TIMOTHY, C.N.P., D.N.P. [address] [place] [phone] 07/09/2024 8:00 AM RESIDENTIAL GAS HEAT TECHNICIAN Hospital Encounter Outpatient Procedure Center in [place], [place] [address] [place] [phone] Eric Pineda M.D. [address] [place] [phone] 07/09/2024 8:00 AM RESIDENTIAL GAS HEAT TECHNICIAN - 07/09/2024 8:54 AM RESIDENTIAL GAS HEAT TECHNICIAN Surgery Outpatient Procedure Center in [place], [place] [address] [place] [phone] Eric Pineda M.D. [address] [place] [phone] EXCHANGE URETERAL STENT Scheduled Procedures Name Priority Associated Diagnoses Date/Ti me EXCHANGE URETERAL STENT Obstruction Ureter 07/09/2024 8:00 AM RESIDENTIAL GAS HEAT TECHNICIAN documented as of this encounter Visit Diagnoses Not on filedocumented in this encounter Care Teams Ct Scan Technician Relationship Specialty Start Date End Date No Contact, Pcp PCP - General Family Medicine 07/31/19 03/31/24 documented as of this encounter
[2024-05-15] MEDS: LACTATED RINGERS 1000 ML 1,000 ML 100 ML IV ×3 (10:00→15:31)
[2024-05-15] MEDS: CELECOXIB 200 MG CAPSULE PO (10:30)
[2024-05-15] MEDS: ACETAMINOPHEN 500 MG TABLET 1000 MG PO ×3 (10:30→23:12)
[2024-05-15] MEDS: OXYCODONE (CR) 10 MG TAB.ER.12H PO (10:30)
[2024-05-15] MEDS: SODIUM CHLORIDE 0.9 % (FLUSH) 10 ML SYRINGE IVF (10:36)
--- NOTE | 2024-05-15 11:30 | CRLHL7_ITS ---
For Patients: As a result of the Century Cures Act, medical imaging exams and procedure reports are released immediately into your electronic medical record. You may view this report before your referring provider. If you have questions, please contact your health care provider. INDICATION: Right hip arthroplasty. Follow-up. TECHNIQUE: Two portable intraoperative images of the right hip. Fluoroscopic guidance utilized. FINDINGS: Right hip arthroplasty. Adequate alignment. There appears to be a right-sided double J urinary stent poorly and incompletely visualized. Surgical clips or jose projected over the symphysis pubis. 93.5 seconds fluoroscopy time utilized. IMPRESSION: Right total hip arthroplasty. Adequate alignment. Dictated by Toñito Park MD @ 05/16/2024 9:46:54 AM (Electronically Signed)
[2024-05-15] MEDS: fentaNYL 100 MCG/2 ML inj IVP (12:18)
[2024-05-15] MEDS: MIDAZOLAM HCL 1 MG/ML inj IVP (12:18)
--- NOTE | 2024-05-15 12:19 | SUR.PREOP ---
TIME?OUT:?1215 PT/RN/MDA?VERIFICATION?OF?SURGICAL?SITE,?PROCEDURE,?AND?CONSENT OBTAINED?PRIOR?TO?INVASIVE?PROCEDURE. all in agreement
[2024-05-15] MEDS: CEFAZOLIN 2 GM INJ IVP (13:06)
[2024-05-15] MEDS: TRANEXAMIC ACID 100 MG/ML INJ 1000 MG IV (13:06)
--- NOTE | 2024-05-15 13:09 | P.NB_ITS ---
Nerve Block Nerve Block Time Seen by Provider: 12:15 Date Seen: 05/15/24 Type of block requested by surgeon for post-operative analgesia: KATHERIN/LFCN Side: right Time out performed: Yes Verification of patient name: Yes Verification of date of : Yes Site marking: site marked Name of person performing procedure: Jose Canas Continuous monitoring Was continuous monitoring of O2 sat, B/P, monitoring engineer, recorded every 15 minutes?: Yes Procedure Checklist: sterile prep, needles and gloves Ultrasound guided. Images saved: Yes Medications given in 5ml increments after negative aspiration: Marcaine %: 0.5 mL: 30 Needle gauge: 22 Precedex (mcg): 25 Patient tolerated procedure well: Yes Additional comments: Injected in 5 mL increments after negative aspiration Block Charges Block Charge (with Pro Fee): Femoral Nerve Use of Ultrasound Machine for Block: Yes- US Guidance/pain block
--- NOTE | 2024-05-15 14:54 | CRLHL7_ITS ---
For Patients: As a result of the Century Cures Act, medical imaging exams and procedure reports are released immediately into your electronic medical record. You may view this report before your referring provider. If you have questions, please contact your health care provider. INDICATION: Follow-up right hip arthroplasty. TECHNIQUE: Two postoperative images of the right hip. FINDINGS: Right total hip arthroplasty. The components are adequately aligned and well seated. Air within the soft tissues and joint space related to the surgery. Right-sided double-J urinary stent incompletely visualized. Surgical clips or jose projected over the symphysis pubis. IMPRESSION: Right total hip arthroplasty. The components are adequately aligned and well seated. Dictated by Toñito Park MD @ 05/16/2024 9:53:57 AM (Electronically Signed)
--- NOTE | 2024-05-15 14:55 | PM.ORPRC ---
Procedure Note Date of procedure: 05/15/24 Procedure: PREOPERATIVE DIAGNOSIS: Right hip osteoarthritis, retained hardware right hip POSTOPERATIVE DIAGNOSIS: Right hip osteoarthritis, retained hardware right hip NAME OF OPERATION: Right total hip arthroplasty, hardware removal deep SURGEON: Yoni Lutz MD OBSTETRICIAN/GYNECOLOGIST: DEBORAH Granda Paul Meyer, OPA IMPLANTS: 1. J[employer]J Dunellen # 56 sector ingrowth cup 2. 36 x 56 +4 neutral polyethylene 3. Corail # 18 high offset collared ingrowth stem 4. 36 + 8.5 ceramic femoral head ANESTHESIA: General ESTIMATED BLOOD LOSS: 950 cc COMPLICATIONS: None SPECIMENS: None DRAINS: None PREOPERATIVE ANTIBIOTICS: Ancef 3 grams INDICATIONS: The patient is a 69-year-old with a longstanding history of severe, unrelenting right hip pain secondary to end-stage right hip osteoarthritis. He had an intertrochanteric fracture in the early , treated with a dynamic hip screw. Despite appropriate nonoperative management, including activity modification, use of an assist device, anti-inflammatories, [id number] pain medication, physical therapy and injections, they continue to have pain and disability. Operative intervention was offered. The risks, benefits and expected outcomes were discussed in detail. These included but were not limited to: Infection, bleeding, injury to blood vessel or nerve, venous thromboembolism. All questions were answered to their satisfaction. Use of an certified anesthesiologist assistant was necessary throughout the case for patient positioning and safety, soft tissue retraction and closure. A modifier 22 should be added to this case. The patient's weight of 122 kg with a BMI of 38 made exposure difficult. Additionally, his previous fracture and previous surgery made the exposure difficult. This more than doubled the time typically required to complete the case. PROCEDURE: The patient was placed supine on the [place] table. General anesthesia was administered. The certified anesthesiologist assistant made sure the patient was properly positioned. The right hip was prepped and draped in the usual sterile fashion. The image intensifier was brought in for a perfect AP pelvis and a perfect double tear drop AP view of each hip which were used for intraoperative templating with our fluoroscopic guide. Our previously placed lateral incision was opened. Subcutaneous dissection was taken with electrocautery to the lateral flare of the trochanter. The screwdriver was placed in the barrel and engaged the lag screw. We backed the lag screw out to the bottom of the barrel. We then tapped the plate and barrel off of the femur. It was removed out of the wound intact. An oblique incision was made 3 cm distal and 3 cm lateral to the anterior superior iliac spine. The certified anesthesiologist assistant retracted the soft tissues to protect them. Subcutaneous dissection was taken with electrocautery to the superficial fascia. The fascia was divided in line with the incision. Blunt dissection was carried medially to the tensor fascia xiomara and sartorius interval. Deep dissection was carried with electrocautery. The circumflex vessels were cauterized and divided. The capsule was exposed and then divided in a T-fashion, tagged with #1 Ethibond sutures. Retractors were placed in the joint, held by the certified anesthesiologist assistant. The corkscrew was placed in the femoral head. The neck cut was made in the subcapital region. We made a second neck cut more distal. The napkin ring of bone was removed. The femoral head was removed intact. Acetabular retractors were placed, held by the certified anesthesiologist assistant. The labrum was sharply debrided. The capsule was released. The 43 mm reamer was used to the true medial wall. We then enlarged in 2 mm increments using the image intensifier for our reamer placement. We impacted the cup which had excellent purchase. We placed the polyethylene. Attention was then turned to the proximal femur. The limb was placed in 140 degrees of external rotation, maximum extension and adduction. A significant amount of time was spent releasing the capsule to allow us to deliver the femur into the wound and complete the femoral side safely. This was made difficult secondary to scarring from his previous fracture and previous surgery. Retractors were held by the certified anesthesiologist assistant throughout the femoral preparation. The supervisor mattress and boxsprings and canal finder were used. Broaches were used to a stable size. The calcar reamer was used. Trial components were placed. The hip was reduced and was found to be stable with appropriate soft tissue tension. Length and offset had been nicely restored using the image intensifier and our fluoroscopic guide. The tip of our broach spans the last screw hole by more than 2 shaft diameters. Trial components were removed. The stem was impacted. We placed the femoral head. Again, the hip was reduced and was found to be stable with appropriate soft tissue tension. Length and offset had been nicely restored. The certified anesthesiologist assistant did a three minute dilute Betadine solution soak. The certified anesthesiologist assistant irrigated the wound with 3 liters of normal saline via pulse lavage. The certified anesthesiologist assistant repaired the anterior capsule with a #1 Vicryl and our previously placed Ethibond sutures. The certified anesthesiologist assistant closed the fascia over the tensor fascia xiomara with a #1 PDO Stratafix, subcutaneous tissues with 2-0 Vicryl, skin with a running 3-0 Stratafix and glue. A dry dressing was applied by the certified anesthesiologist assistant. Sponge and needle counts were correct x 2. The patient tolerated the procedure well; there were no apparent complications. They were awakened and extubated in the operating room, sent to the Post-Anesthesia Care Unit in satisfactory condition. PLAN: 1. The patient will be mobilized with physical therapy, weight-bearing as tolerates 2. Xarelto x 5 days then aspirin x 30 days will be used for DVT prophylaxis 3. The patient will be discharged once medically appropriate
[2024-05-15] MEDS: LACTATED RINGERS 1000 ML 1,000 ML 125 ML IV (15:50)
--- NOTE | 2024-05-15 16:12 | P.ANES_ITS ---
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
[2024-05-15] MEDS: HYDROmorphone 0.5 mg/0.5 ml inj IVP (16:39)
[2024-05-15] MEDS: OXYCODONE 5 MG TABLET PO ×3 (16:41→22:15)
[2024-05-15] MEDS: LACTATED RINGERS 1000 ML 1,000 ML 75 ML IV (17:25)
[2024-05-15] MEDS: CEFAZOLIN 3 GM in 0.9 % SODIUM CHLORIDE Mini-bag 100 ML IVPB (18:47)
--- NOTE | 2024-05-15 19:27 | PC.NURSE ---
End of Shift: Patient pleasant and cooperative. Patient vitally stable, lungs clear, BS WNL, IV running LR at 75. Patient rates right hip pain at most 10/10, dilauded given once and 5 mg of oxy given twice. Patient tolerating regular diet. Patient was up to the toilet with no success and now up in chair. Right hip dressing C/D/I.
[2024-05-15] MEDS: SENNOSIDES 1 TAB TABLET 2 TAB PO (20:07)
--- NOTE | 2024-05-15 22:02 | P.IMCN_ITS ---
Date of Consult Consult date: 05/15/24 Primary Care Provider: Claire Jimenez PA-C patient with past medical history of hyperlipidemia, gout, WILLA, history of ureter stenosis S/P a renal stent, history of prostate cancer that was treated with radiotherapy and hormonal therapy a year ago. Patient was admitted for an elective procedure today which is a Right total hip arthroplasty & deep hardware removal. Patient has history of a longstanding history of severe, unrelenting right hip pain secondary to end-stage right hip osteoarthritis. He had an intertrochanteric fracture in the early 1999s, treated with a dynamic hip screw. Patient is hemodynamically stable, good amount of urine, bladder scan postvoid was 120 mL. We will give laxatives while he is on opioids. Consult Narrative Narrative: Breezy Paz is a 69 year old male Review of Systems Status of ROS: Reports: 6 or more systems reviewed and unremarkable except as noted in History and below [facility] Medical History (Updated 05/15/24 @ 22:23 by Maylin Matos MD) Gout ?M10.9 - Gout, unspecified (ICD-10) Ureteral stenosis ?Q62.10 - Congenital occlusion of ureter, unspecified (ICD-10) Sleep apnea ?G47.30 - Sleep apnea, unspecified (ICD-10) Femur fracture ?S72.90XA - Unspecified fracture of unspecified femur, initial encounter for closed fracture (ICD-10) Prostate cancer ?C61 - Malignant neoplasm of prostate (ICD-10) Surgical History (Updated 05/15/24 @ 22:22 by Maylin Matos MD) S/P hardware removal (04/30/24) ?Z98.890 - Other specified postprocedural states (ICD-10) S/P ORIF (open reduction internal fixation) fracture ?Z98.890 - Other specified postprocedural states (ICD-10) ?Z87.81 - Personal history of (healed) traumatic fracture (ICD-10) Social History (Reviewed 05/08/24 @ 10:53 by Nasra Courtney ~ [facility], [facility]) What is your current living situation?: I presently have a place to live Problems where you live: no known problems In the past 12 months, utilities in danger of being shut off: no In past 12 months, lack of transportation kept you from medical appts, meetings, work, or getting things needed for daily living: no In the past 12 mos, have been you worried that your food would run out before you had money to buy more?: never true In the past 12 mos, the food you bought just didn't last and you didn't have money to buy more?: never true Highest level of school completed/degree received: high school graduate Smoking Status: Never smoker Do you use any of these nicotine containing products: None Second hand tobacco smoke exposure: No How often do you have a drink containing alcohol: 2-3 times a week Alcohol type: beer How many standard drinks containing alcohol do you have on a typical day: 3 or 4 How often do you have six or more drinks on one occasion: Never AUDIT-C Alcohol total score: 4 Non-prescribed substance use: denies use Caffeine: Yes How often does anyone, including family, friends and others, physically hurt you : never How often does anyone, including family, friends and others, insult or talk down to you: never How often does anyone, including family, friends and others, threaten you with harm: never How often does anyone, including family, friends and others, scream or curse at you: never service: No Meds Home Medications and Allergies Home Medications ?Medication ?Instructions ?Recorded ?Confirmed ?Type acetaminophen 500 mg tablet 500 mg PO Q6H PRN 03/25/24 05/08/24 History (Tylenol Extra Strength) tamsulosin 0.4 mg capsule 0.4 mg PO DAILY 03/25/24 05/15/24 History calcium carbonate 1,625 mg PO DAILY 04/29/24 05/14/24 History cholecalciferol (vitamin D3) 25 1,000 unit PO DAILY 04/29/24 05/14/24 History mcg (1,000 unit) capsule rosuvastatin 10 mg tablet 10 mg PO HS 04/30/24 05/15/24 History Allergies Allergy/AdvReac Type Severity Reaction Status Date / Time No Known Drug Allergies Allergy Verified 05/15/24 10:06 Exam Narrative: Exam Narrative: Physical exam GENERAL: Comfortable, no acute distress. HEAD AND NECK: Atraumatic, normocephalic CARDIOVASCULAR: RRR. Normal S1, S2. No murmurs. RESPIRATORY: Clear to auscultation B/L. Good air entry B/L. No wheezes or rhonchi. GASTROINTESTINAL: Not distended, not tender to palpation. NEUROLOGY: Alert, awake, oriented X 3. Normal speech. No focal weakness. PSYCH: Normal mood, normal affect. Const: Vital Signs, click to edit/add: Vital Signs - 24 hr 05/15/24 10:28 05/15/24 12:15 05/15/24 12:22 Temperature 99.1 F Pulse Rate 91 84 79 Respiratory Rate 16 12 12 Blood Pressure 137/82 134/80 106/66 Pulse Oximetry 96 92 97 Oxygen Delivery Me thod Room Air Nasal Cannula Nasal Cannula Oxygen Flow Rate 5 5 05/15/24 15:42 05/15/24 15:47 05/15/24 15:52 Temperature 98.0 F Pulse Rate 84 75 72 Respiratory Rate 12 12 10 L Blood Pressure 115/72 120/67 Pulse Oximetry 95 97 96 Oxygen Delivery Me thod Nasal Cannula Nasal Cannula Nasal Cannula Oxygen Flow Rate 2 2 2 05/15/24 15:57 05/15/24 16:02 05/15/24 16:08 Temperature Pulse Rate 78 76 74 Respiratory Rate 12 12 12 Blood Pressure 117/65 125/83 Pulse Oximetry 97 97 98 Oxygen Delivery Me thod Nasal Cannula Nasal Cannula Nasal Cannula Oxygen Flow Rate 2 2 2 05/15/24 16:13 05/15/24 16:17 05/15/24 16:28 Temperature 97.2 F L Pulse Rate 72 73 71 Respiratory Rate 12 10 L 16 Blood Pressure 144/72 H 121/72 120/67 Pulse Oximetry 98 97 7 L Oxygen Delivery Me thod Nasal Cannula Nasal Cannula Room Air Oxygen Flow Rate 2 2 05/15/24 16:30 05/15/24 16:45 05/15/24 17:00 Temperature 97.4 F L 97.4 F L 97.3 F L Pulse Rate 75 75 89 Respiratory Rate 14 14 12 Blood Pressure 119/85 119/58 L 122/56 L Pulse Oximetry 92 92 93 Oxygen Delivery Me thod Room Air Room Air Room Air Oxygen Flow Rate 05/15/24 17:32 05/15/24 17:46 05/15/24 18:16 Temperature 97.6 F 97.7 F 98.5 F Pulse Rate 77 74 92 Respiratory Rate 16 16 16 Blood Pressure 114/65 105/55 L 135/56 L Pulse Oximetry 98 94 91 Oxygen Delivery Me thod Room Air Room Air Room Air Oxygen Flow Rate Imaging Right hip x-ray: Attestation: I have reviewed the pertinent imaging results. Radiologist's impression: Nicely aligned head of the femur status post arthroplasty. Assessment and Plan Assessment and plan (1) Status post total hip replacement, right: Problem comment: -Early mobilization -physical therapy, weight-bearing as tolerates -will start Xarelto tomorrow morning x 5 days then aspirin x 30 days will be used for DVT prophylaxis Status: Acute (2) S/P hardware removal: Problem comment: -no complications during the surgery. Status: Acute (3) Osteoarthritis of right hip: Problem comment: Status post arthroplasty Status: Acute (4) Ureteral stenosis: Problem comment: -history of hydronephrosis and multiple exchanges of renal stents -patient is still following with Urology -renal function is preserved, last serum creatinine was 1.16, Status: Acute (5) History of renal stent: Problem comment: -bladder scan -IV fluids -strict I&Os Status: Acute (6) Pre-diabetes: Problem comment: Last A1c was 6.0. Status: Acute Plan As above Total Time Spent Total Time Spent: Time spent: Today I spent 75 minutes seeing the patient, discussing the patient with ER staff, reviewing Expanse and EPIC notes/diagnostics, discussing the care plan with our care time that includes PT/OT, pharmacy and documenting my impressions and plan in the medical record.
[2024-05-16] MEDS: 0.9 % SODIUM CHLORIDE 500 ML IV (02:49)
[2024-05-16] MEDS: CEFAZOLIN 3 GM in 0.9 % SODIUM CHLORIDE Mini-bag 100 ML IVPB (02:50)
[2024-05-16 03:00] VITALS: BP 123/80; PULSE 85; RESP 18; TEMP 37; O2SAT 94
[2024-05-16] MEDS: polyethylene glycoL 3350 17 GM PACK PO (04:46)
[2024-05-16] MEDS: ACETAMINOPHEN 500 MG TABLET 1000 MG PO ×2 (04:46→10:45)
[2024-05-16] MEDS: OXYCODONE 5 MG TABLET PO ×3 (06:42→10:46)
[2024-05-16 07:03] LABS: Basophils Absolute Auto 0.01 K/uL (0.00-0.30); Basophils Percent Auto 0.1 % (0.0-3.0); Hematocrit 30.4 % (37.0-53.0); Hemoglobin* 9.9 gm/dL (13.5-17.5); Immature Granulocytes Abs Auto 0.02 K/uL (0.00-0.30); Immature Granulocytes Pct Auto 0.2 %; Lymphocytes Percent Auto 6.2 % (20-44); Mean Corpuscular HGB Conc 33 gm/dL (32-36); Mean Corpuscular Hemoglobin 29 pg (26-34); Mean Corpuscular Volume 90 fL (80-100); Monocytes Percent Auto 12.1 % (0.0-11.0); Neutrophils Percent Auto 81.4 % (42.0-72.0); Platelet Count* 212 K/uL (140-440); RDW Coefficient of Variation % 12.9 % (11.5-15.5); Red Blood Count 3.39 m/uL (4.30-5.90); Slide Review Reflex No; White Blood Count* 8.57 K/uL (4.50-11.00)
[2024-05-16 07:15] VITALS: BP 143/66; PULSE 88; RESP 18; TEMP 37.5; O2SAT 92
--- NOTE | 2024-05-16 07:20 | PC.NURSE ---
-: Pleasant and cooperative. SBA with gb and walker. Rated pain 3-4/10, prn oxy given. Pts first void was 150mL, post void bladder scanned for 100mL. Administered 500mL Bolus for oliguria, urine output increased, encouraging PO intake.?CPAP on at HS. Mepi?s CDI, active ice on.?
[2024-05-16 07:21] LABS: Sodium* 133 mmol/L (135-149)
[2024-05-16 07:24] LABS: Blood Urea Nitrogen* 25 mg/dL (7-30); Creatinine* 1.3 mg/dL (0.5-1.5); Est. Creatinine Clearance* 54.59; Estimated Glomerular Filt Rate 59 ml/min
--- NOTE | 2024-05-16 07:42 | PM.ORPN ---
Subjective Subjective Time Seen by Provider: 07:42 Date Seen: 05/16/24 Principal diagnosis: Status post right hip hardware removal and total hip arthroplasty Interval history: Sagar is comfortable this morning. He has been ambulating well. He will discharge to home today. Ortho Exam Narrative Exam Narrative: Alert and oriented x3. Patient is in no acute distress. Converses without labored breathing. Hearing is grossly intact. Ambulates with a walker. Examination of the right hip shows ecchymosis is present. Dressings are intact. No erythema or warmth or sign of infection. Soft tissue edema is present about the hip. CMS intact right lower extremity. Calves are soft and nontender. Const Vital Signs, click to edit/add: Vital Signs - 24 hr 05/15/24 10:28 05/15/24 12:15 05/15/24 12:22 Temperature 99.1 F Pulse Rate 91 84 79 Pulse Rate [Pulse Oximeter] Respiratory Rate 16 12 12 Blood Pressure 137/82 134/80 106/66 Blood Pressure [Right Arm] Pulse Oximetry 96 92 97 Oxygen Delivery Method Room Air Nasal Cannula Nasal Cannula Oxygen Flow Rate 5 5 05/15/24 15:42 05/15/24 15:47 05/15/24 15:52 Temperature 98.0 F Pulse Rate 84 75 72 Pulse Rate [Pulse Oximeter] Respiratory Rate 12 12 10 L Blood Pressure 115/72 120/67 Blood Pressure [Right Arm] Pulse Oximetry 95 97 96 Oxygen Delivery Method Nasal Cannula Nasal Cannula Nasal Cannula Oxygen Flow Rate 2 2 2 05/15/24 15:57 05/15/24 16:02 05/15/24 16:08 Temperature Pulse Rate 78 76 74 Pulse Rate [Pulse Oximeter] Respiratory Rate 12 12 12 Blood Pressure 117/65 125/83 Blood Pressure [Right Arm] Pulse Oximetry 97 97 98 Oxygen Delivery Method Nasal Cannula Nasal Cannula Nasal Cannula Oxygen Flow Rate 2 2 2 05/15/24 16:13 05/15/24 16:17 05/15/24 16:28 Temperature 97.2 F L Pulse Rate 72 73 71 Pulse Rate [Pulse Oximeter] Respiratory Rate 12 10 L 16 Blood Pressure 144/72 H 121/72 120/67 Blood Pressure [Right Arm] Pulse Oximetry 98 97 7 L Oxygen Delivery Method Nasal Cannula Nasal Cannula Room Air Oxygen Flow Rate 2 2 05/15/24 16:30 05/15/24 16:45 05/15/24 17:00 Temperature 97.4 F L 97.4 F L 97.3 F L Pulse Rate 75 75 89 Pulse Rate [Pulse Oximeter] Respiratory Rate 14 14 12 Blood Pressure 119/85 119/58 L 122/56 L Blood Pressure [Right Arm] Pulse Oximetry 92 92 93 Oxygen Delivery Method Room Air Room Air Room Air Oxygen Flow Rate 05/15/24 17:32 05/15/24 17:46 05/15/24 18:16 Temperature 97.6 F 97.7 F 98.5 F Pulse Rate 77 74 92 Pulse Rate [Pulse Oximeter] Respiratory Rate 16 16 16 Blood Pressure 114/65 105/55 L 135/56 L Blood Pressure [Right Arm] Pulse Oximetry 98 94 91 Oxygen Delivery Method Room Air Room Air Room Air Oxygen Flow Rate 05/15/24 23:00 05/15/24 23:00 05/16/24 03:00 Temperature 98.5 F 98.6 F Pulse Rate Pulse Rate [Pulse Oximeter] 91 85 Respiratory Rate 18 18 18 Blood Pressure Blood Pressure [Right Arm] 110/69 123/80 Pulse Oximetry 91 91 94 Oxygen Delivery Method Room Air Room Air CPAP Oxygen Flow Rate Assessment and Plan Assessment and plan (1) Status post total hip replacement, right: Problem details: -Early mobilization -physical therapy, weight-bearing as tolerates -will start Xarelto tomorrow morning x 5 days then aspirin x 30 days will be used for DVT prophylaxis Status: Acute Assessment and Plan: Plan for discharge is today, and when they meets discharge criteria. DVT prophylaxis upon discharge, Xarelto 10 mg daily for total of 5 days, then aspirin 81 mg twice daily for 30 days. Remove dressing 1 week. Observe wound and phone Orthopedics with any questions or concerns Use Ice on operative hip unrestricted. Return to clinic in 1 week with PA for a wound check Return to clinic in 6 weeks with surgeon Minimize narcotic use. Wean off and discontinue soon as possible. Activities as tolerated. No strenuous activity. Attend outpt PT
[2024-05-16] MEDS: SENNOSIDES 1 TAB TABLET 2 TAB PO (08:41)
[2024-05-16] MEDS: RIVAROXABAN 10 MG TABLET PO (08:41)
--- NOTE | 2024-05-16 12:30 | PC.NURSE ---
Discharge. Pt has been Pleasant and cooperative. pain left hip 12/12 and he is getting po pain meds/ he is up with SBA with gb and walker. dressing is C/D/I active ice is on. went over discharge with pt and . went over medications, appointment, education and instructions. pt went over and signed personal belonging sheet. pt SL was d/c intact. he got a w/c ride out.
== END 2024-05-16 11:10 | disposition home or self-care (01) ==
LOC: OR 09:51 → MEDSURG 09:56
PROVIDERS: PCP Physician Assistant; Visit Provider Orthopaedic Surgery
PROC: (CPT 27130; principal; 2024-05-15 11:30)
DX: M16.11 Unilateral primary osteoarthritis, right hip (principal); G89.18 Other acute postprocedural pain; S72.91XS Unspecified fracture of right femur, sequela; Z47.2 Encounter for removal of internal fixation device; G47.33 Obstructive sleep apnea (adult) (pediatric); Z85.46 Personal history of malignant neoplasm of prostate; E78.5 Hyperlipidemia, unspecified; M10.9 Gout, unspecified; Z87.81 Personal history of (healed) traumatic fracture; N13.5 Crossing vessel and stricture of ureter without hydronephrosis; R73.03 Prediabetes; Z96.0 Presence of urogenital implants; Z68.38 Body mass index [BMI] 38.0-38.9, adult
CPT/HCPCS: 27130; 20680; 01214; 36415; 51798; 64447; 73501; 76942; 82565; 84132; 84295; 84520; 85025; 86850; 86900; 86901; 97110; 97116; 97161; 97165; 97535; 99100; A9270; C1776; J0665; J0690; J1100; J1170; J1885; J2250; J2371; J2704; J2710; J3010; J7030; J7120

== ENCOUNTER 2025-06-04 13:06 | Outpatient (CLI) | payer MEDICARE, BC, SELFPAY ==
[2025-06-04 13:20] VITALS: BP 124/78; PULSE 83; RESP 16; TEMP 36.9; O2SAT 94
--- NOTE | 2025-06-04 14:37 | PM.PROC ---
Procedure Note Time Seen by Provider: 14:00 Date Seen: 06/04/25 Provider Contact Time: 14:45 Date of procedure: 06/04/25 Will [facility] bill your pro fee for this procedure?: Yes Procedure: CRYONEUROLYSIS TREATMENT REPORT REFERRING PROVIDER: Adi Lutz TREATMENT PROVIDER: Raghavendra Martinez PREOPERATIVE DIAGNOSIS: Right knee osteoarthritis POSTOPERATIVE DIAGNOSIS: Right knee osteoarthritis? PROCEDURE: Cryoneurolysis of Multiple Sensory Nerves of the Knee ANESTHESIA: Local INDICATIONS: The patient is a very pleasant 70-year-old male with primary osteoarthritis involving the right knee who presents today for cryoneurolysis of multiple sensory nerves to the knee for severe knee pain.?Patient medical history was reviewed. The risks, benefits, treatment alternatives, and complications were discussed with the patient, including but not limited to bleeding, infection, nerve or tissue damage.?Informed consent was obtained. ? PRE-TREATMENT MOTOR ASSESSMENT/PAIN SCORE: Patient was able to demonstrate intact gross motor function with plantarflexion, dorsiflexion, adduction, abduction, hip flexion, and extension of the lower extremity.?Pre-treatment pain score of 5 out of 10 in the right knee. DESCRIPTION OF PROCEDURE: After obtaining informed consent, the patient was brought back to the treatment room and positioned supine on the table.?The right lower extremity was prepped with Chlorhexadine.?We began the procedure by performing our procedural pause.?Once this was completed and verified to be accurate, I began the procedure by identifying the nerves with the use of bedside ultrasound.?After the nerves were identified, the skin was marked and, using 1% lidocaine plain, the area of the nerves were anesthetized. ? After the anesthetic was administered, the Smart Tip 2190 cryoneurolysis needle was inserted into the treatment sites using ultrasound guidance.?Treatment was then initiated on the right lower extremity with the following nerves treated: Superior, superior medial, superior lateral, inferior medial genicular nerves. At the termination of the treatment, the cryoneurolysis needle was removed with the patient's skin cleansed and compression dressing applied. Patient tolerated the procedure without any incident or concern.? Patient was then instructed to stand, mobilize the joint, and was examined to ensure gross motor skills were intact. COMPLICATIONS: None POST-TREATMENT PAIN SCORE: 0 out of 10. Repeat knee DISPOSITION: Discharge instructions were given to the patient with education on the post-procedure expectations. Patient was instructed to call the Ortho clinic with any post-procedure concerns or questions.
[2025-06-04 14:45] VITALS: BP 128/82; PULSE 79; RESP 16; O2SAT 96
== END 2025-06-04 14:47 | disposition home or self-care (01) ==
LOC: OP CLINIC 13:07
PROVIDERS: PCP Physician Assistant; Visit Provider Nurse Anesthetist, Certified Registered
DX: M17.11 Unilateral primary osteoarthritis, right knee (principal)
CPT/HCPCS: 64640; 76942; C9809

== ENCOUNTER 2025-06-17 08:22 | Day surgery (SDC) | payer MEDICARE, BC, SELFPAY ==
[2025-06-17] VITALS (19 sets, daily range): BP systolic 105–141; BP diastolic 56–106; PULSE 69–90; RESP 16–18; TEMP 36.2–37.4; O2SAT 88–95; BMI 37.7
[2025-06-17] MEDS: LACTATED RINGERS 1000 ML 1,000 ML 100 ML IV ×3 (09:00→13:41)
[2025-06-17] MEDS: ACETAMINOPHEN 500 MG TABLET 1000 MG PO ×2 (10:32→17:27)
[2025-06-17] MEDS: MIDAZOLAM HCL 1 MG/ML inj IVP (10:32)
[2025-06-17] MEDS: OXYCODONE (CR) 10 MG TAB.ER.12H PO (10:32)
[2025-06-17] MEDS: CELECOXIB 200 MG CAPSULE PO ×2 (10:32→21:42)
--- NOTE | 2025-06-17 10:42 | SUR.PREOP ---
TIME?OUT:?1032 PT/RN/MDA?VERIFICATION?OF?SURGICAL?SITE,?PROCEDURE,?AND?CONSENT OBTAINED?PRIOR?TO?INVASIVE?PROCEDURE.
--- NOTE | 2025-06-17 10:49 | W.PM.NB ---
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 Images saved: Yes Medications given in 5ml increments after negative aspiration: Marcaine %: 0.25 mL: 15 Needle gauge: 20 Precedex (mcg): 25 Patient tolerated procedure well: Yes Block Charges Block Charge (with Pro Fee): Femoral Nerve Use of Ultrasound Machine for Block: Yes- US Guidance/pain block
--- NOTE | 2025-06-17 10:50 | P.ANES_ITS ---
Anesthesia Charges Start Date/Time Anesthesia Start Date: 06/17/25 Anesthesia Start Time: 11:10 Stop Date/Time Anesthesia Stop Date: 06/17/25 Anesthesia Stop Time: 14:00 Summary Extremes of Age - Over 70 or under 1: MDA Coding CPT Codes CPT Codes: ANESTH KNEE ARTHROPLASTY - 28996 ([id number]) P2 - PATIENT W/MILD SYST DISEASE, QK - CAPTAIN'S ASSISTANT 2-4 CNCRNT ANES PROC, QX - ARTIFACTS CONSERVATOR SVC W/ MD MED DIRECTION Additional Codes: Summary - Extremes of Age - Over 70 or under 1: MDA ([id number])
--- NOTE | 2025-06-17 10:50 | W.PM.NB ---
Nerve Block Nerve Block Time Seen by Provider: 10:32 Date Seen: 06/17/25 Type of block requested by surgeon for post-operative analgesia: geniculars Side: right Time out performed: Yes Verification of patient name: Yes Verification of date of : Yes Site marking: site marked Name of person performing procedure: Juan Continuous monitoring Was continuous monitoring of O2 sat, B/P, surveillance system monitor, recorded every 15 minutes?: Yes Procedure Checklist: sterile prep, needles and gloves Ultrasound guided. Images saved: Yes Medications given in 5ml increments after negative aspiration: Marcaine %: 0.25 mL: 9 Needle gauge: 25 Patient tolerated procedure well: Yes Block Charges Block Charge (with Pro Fee): Genicular Nerve Block
--- NOTE | 2025-06-17 10:50 | W.ANESCHARGE ---
Anesthesia Charges Start Date/Time Anesthesia Start Date: 06/17/25 Anesthesia Start Time: 11:10 Stop Date/Time Anesthesia Stop Date: 06/17/25 Anesthesia Stop Time: 14:00 Summary Extremes of Age - Over 70 or under 1: MDA Coding CPT Codes CPT Codes: ANESTH KNEE ARTHROPLASTY - 62311 ([id number]) P2 - PATIENT W/MILD SYST DISEASE, QK - BAR ASSISTANT 2-4 CNCRNT ANES PROC, QX - COUNTER SERVER SVC W/ MD MED DIRECTION Additional Codes: Summary - Extremes of Age - Over 70 or under 1: MDA ([id number])
[2025-06-17] MEDS: TRANEXAMIC ACID 100 MG/ML INJ 1000 MG IV (11:39)
--- NOTE | 2025-06-17 13:22 | CRLHL7_ITS ---
For Patients: As a result of the Cures Act, medical imaging exams and procedure reports are released immediately into your electronic medical record. You may view this report before your referring provider. If you have questions, please contact your health care provider. HISTORY: Postoperative. TECHNIQUE: Two views of the right knee. COMPARISON: 04/16/2025. FINDINGS: Right total knee arthroplasty with patellar resurfacing procedure. The components are appropriately seated. No periprosthetic fracture or hardware loosening. Soft tissue gas is present. IMPRESSION: 1. Intact right total knee arthroplasty. Dictated by Lebron Lugo MD @ 06/19/2025 5:05:11 AM (Electronically Signed)
--- NOTE | 2025-06-17 14:00 | P.ANES_ITS ---
Anesthesia Charges Start Date/Time Anesthesia Start Date: 06/17/25 Anesthesia Start Time: 11:10 Stop Date/Time Anesthesia Stop Date: 06/17/25 Anesthesia Stop Time: 14:00 Summary Extremes of Age - Over 70 or under 1: ASSISTANT SCIENTIST Coding CPT Codes CPT Codes: ANESTH KNEE ARTHROPLASTY - 22708 ([id number]) P2 - PATIENT W/MILD SYST DISEASE, QK - ELECTRONIC TESTER 2-4 CNCRNT ANES PROC, QX - ASSISTANT SCIENTIST SVC W/ MD MED DIRECTION Additional Codes: Summary - Extremes of Age - Over 70 or under 1: ASSISTANT SCIENTIST ([id number])
--- NOTE | 2025-06-17 14:00 | W.ANESCHARGE ---
Anesthesia Charges Start Date/Time Anesthesia Start Date: 06/17/25 Anesthesia Start Time: 11:10 Stop Date/Time Anesthesia Stop Date: 06/17/25 Anesthesia Stop Time: 14:00 Summary Extremes of Age - Over 70 or under 1: VIBRATION TECHNICIAN Coding CPT Codes CPT Codes: ANESTH KNEE ARTHROPLASTY - 00575 ([id number]) P2 - PATIENT W/MILD SYST DISEASE, QK - SUPERVISOR PIT AND AUXILIARIES 2-4 CNCRNT ANES PROC, QX - VIBRATION TECHNICIAN SVC W/ MD MED DIRECTION Additional Codes: Summary - Extremes of Age - Over 70 or under 1: VIBRATION TECHNICIAN ([id number])
--- NOTE | 2025-06-17 15:23 | PM.IMCN1 ---
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 Lutz today for severe osteoarthritis. He feels well post operatively and has no complaints. His , Linnea, is at the bedside. Review of Systems Status of ROS: Reports: 6 or more systems reviewed and unremarkable except as noted in History and below [facility] Medical History (Updated 06/17/25 @ 17:15 by Raya Hurst MD) Microalbuminuria (~05/2025) ?R80.9 - Proteinuria, unspecified (ICD-10) Primary malignant neoplasm of prostate (12/12/22) ?C61 - Malignant neoplasm of prostate (ICD-10) Prediabetes (04/16/24) ?R73.03 - Prediabetes (ICD-10) Gout (08/15/23) ?M10.9 - Gout, unspecified (ICD-10) Stenosis of aortic valve (04/29/24) ?I35.0 - Nonrheumatic aortic (valve) stenosis (ICD-10) Colon cancer screening (05/03/22) ?Z12.11 - Encounter for screening for malignant neoplasm of colon (ICD-10) Primary osteoarthritis of right hip (08/15/23) ?M16.11 - Unilateral primary osteoarthritis, right hip (ICD-10) Presence of other specified functional implants (05/08/24) ?Z96.89 - Presence of other specified functional implants (ICD-10) Hyperlipidemia (04/16/24) ?E78.5 - Hyperlipidemia, unspecified (ICD-10) Hydronephrosis with ureteral stricture, not elsewhere classified (02/14/23) ?N13.1 - Hydronephrosis with ureteral stricture, not elsewhere classified (ICD-10) Obstructive sleep apnea (08/01/23) ?G47.33 - Obstructive sleep apnea (adult) (pediatric) (ICD-10) Ureteral stenosis ?Q62.10 - Congenital occlusion of ureter, unspecified (ICD-10) Prostate cancer ?C61 - Malignant neoplasm of prostate (ICD-10) Surgical History History of total right knee replacement (06/17/25) ?Z96.651 - Presence of right artificial knee joint (ICD-10) Status post total hip replacement, right (05/15/24) ?Z96.641 - Presence of right artificial hip joint (ICD-10) History of renal stent (12/2024) S/P hardware removal (04/30/24) ?Z98.890 - Other specified postprocedural states (ICD-10) S/P ORIF (open reduction internal fixation) fracture ?Z98.890 - Other specified postprocedural states (ICD-10) ?Z87.81 - Personal history of (healed) traumatic fracture (ICD-10) Social History Narrative: 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 Denies tobacco use. 2-3 beers once a week. What is your current living situation?: I presently have a place to live Problems where you live: no known problems In the past 12 months, utilities in danger of being shut off: no In past 12 months, lack of transportation kept you from medical appts, meetings, work, or getting things needed for daily living: no In the past 12 mos, have been you worried that your food would run out before you had money to buy more?: never true In the past 12 mos, the food you bought just didn't last and you didn't have money to buy more?: never true Highest level of school completed/degree received: high school graduate Smoking Status: Never smoker Do you use any of these nicotine containing products: None Second hand tobacco smoke exposure: No How often do you have a drink containing alcohol: monthly or less Alcohol type: beer How many standard drinks containing alcohol do you have on a typical day: 3 or 4 How often do you have six or more drinks on one occasion: Never AUDIT-C Alcohol total score: 2 Non-prescribed substance use: denies use Caffeine: Yes How often does anyone, including family, friends and others, physically hurt you: never How often does anyone, including family, friends and others, insult or talk down to you: never How often does anyone, including family, friends and others, threaten you with harm: never How often does anyone, including family, friends and others, scream or curse at you: never service: No Meds Home Medications and Allergies Home Medications ?Medication ?Instructions ?Recorded ?Confirmed ?Type tamsulosin 0.4 mg capsule 0.4 mg PO DAILY 03/25/24 06/17/25 History calcium carbonate 1,625 mg PO DAILY 04/29/24 06/17/25 History cholecalciferol (vitamin D3) 25 1,000 unit PO DAILY 04/29/24 06/17/25 History mcg (1,000 unit) capsule rosuvastatin 10 mg tablet 10 mg PO HS 04/30/24 06/17/25 History acetaminophen 500 mg capsule 500 - 1,000 mg (1 - 2 x 500 mg) PO 06/17/25 Rx Q6H PRN pain #100 caps aspirin 81 mg chewable tablet 81 mg PO BID for DVT prophylaxis 06/17/25 Rx (Aspirin Childrens) 30 days #60 tabs aspirin 81 mg tablet,delayed 81 mg PO DAILY 06/17/25 06/17/25 History release Held on 06/17/25. Instructions: Resume on 07/18/25. oxycodone 5 mg tablet 2.5 - 5 mg (0.5 - 1 x 5 mg) PO 06/17/25 Rx Q4-6H PRN Pain #42 tabs sennosides 8.6 mg tablet (Senna 17.2 mg (2 x 8.6 mg) PO BID PRN 06/17/25 Rx Lax) constipation #100 tabs Allergies Allergy/AdvReac Type Severity Reaction Status Date / Time No Known Drug Allergies Allergy Verified 06/17/25 09:01 Exam Narrative: Exam Narrative: General: No acute distress. Awake alert oriented x3. HEENT: Normocephalic atraumatic, pupils equally round and reactive to light and accommodation. Oropharynx clear. Mucous membranes are moist. No cervical lymphadenopathy, thyromegaly or carotid bruits. No JVD. Cardiovascular: Regular rate and rhythm. No murmurs, gallops, or rubs. Chest: No increased work of breathing. Clear to auscultation bilaterally. No crackles or wheezes. Abdomen: Bowel sounds present. Soft, nondistended, nontender. No hepatosplenomegaly or masses. Extremities: Right knee bandage is clean, dry, and intact. No edema, no cyanosis or clubbing. Skin: No jaundice, no pallor, no rashes on visible skin. Const: Vital Signs, click to edit/add: Vital Signs - 24 hr 06/17/25 09:35 06/17/25 10:35 06/17/25 10:40 Temperature 98.0 F Pulse Rate 77 74 72 Respiratory Rate 16 16 16 Blood Pressure 141/80 H 136/79 134/74 Pulse Oximetry 94 91 94 Oxygen Delivery Me thod Room Air Nasal Cannula Nasal Cannula Oxygen Flow Rate 2 2 06/17/25 13:55 06/17/25 14:00 06/17/25 14:05 Temperature 99.4 F Pulse Rate 85 83 83 Respiratory Rate 16 16 16 Blood Pressure 136/68 122/61 112/56 L Pulse Oximetry 88 91 91 Oxygen Delivery Me thod Nasal Cannula Oxygen Flow Rate 3 06/17/25 14:10 06/17/25 14:15 06/17/25 14:20 Temperature Pulse Rate 78 81 75 Respiratory Rate 16 16 16 Blood Pressure 114/63 113/63 109/60 Pulse Oximetry 91 90 92 Oxygen Delivery Me thod Nasal Cannula Room Air Oxygen Flow Rate 1 06/17/25 14:25 Temperature 97.1 F L Pulse Rate 74 Respiratory Rate 16 Blood Pressure 105/63 Pulse Oximetry 93 Oxygen Delivery Me thod Room Air Oxygen Flow Rate Assessment and Plan Assessment and plan (1) Status post total hip replacement, right: Problem comment: POPPY-AA 05/15/2024, Dr. Lutz - routine postop cares - VTE prophylaxis SCDs and b.i.d. low-dose aspirin Status: Acute (2) Osteoarthritis of left knee: Status: Chronic (3) Osteoarthritis of right knee: Status: Chronic (4) Prediabetes: Problem comment: January 2025 A1C 5.8% - noted Status: Chronic (5) Stenosis of aortic valve: Problem comment: 04/2024: new murmur heard on exam, echo confirmed mild aortic stenosis. Repeat echo in 3 years to monitor - noted will need to monitor carefully if patient needs fluid boluses or diuresis Status: Chronic (6) Prostate cancer: Problem comment: Clinical stage from 11/14/2022: Stage IIIB (cT4, cN0, cM0, PSA: 8.4, Grade Group: 2) - Signed by Michael Kingsley APRN, C.N.P., D.N.P. on 12/12/2022 - monitored by Oncology with PSAs Status: Chronic (7) Obstructive sleep apnea: Status: Chronic (8) Obesity: Status: Chronic (9) Ureteral stenosis: Problem comment: -history of hydronephrosis and regular exchanges of renal stents -patient is still following with Urology -renal function is preserved, last serum creatinine was 1.16 Status: Chronic
--- NOTE | 2025-06-17 15:47 | PM.ORPRC ---
Procedure Note Date of procedure: 06/17/25 Procedure: PREOPERATIVE DIAGNOSIS: Right knee osteoarthritis POSTOPERATIVE DIAGNOSIS: Right knee osteoarthritis NAME OF OPERATION: Right total knee arthroplasty SURGEON: Yoni Lutz MD AUTO WASHER: RADHA Collins ANESTHESIA: Spinal plus general ESTIMATED BLOOD LOSS: 0 mL COMPLICATIONS: None SPECIMENS: None DRAINS: None PREOPERATIVE ANTIBIOTICS: Ancef 3 g, antibiotic impregnated cement IMPLANTS: 1. J&J Attune # 9 posterior stabilized femur 2. Revision CRS # 9 fixed-bearing tibia, a 14 mm x 50 mm cemented stem 3. # 9 posterior stabilized, 8 mm fixed-bearing polyethylene 4. 41 patella INDICATIONS: The patient is a 70-year-old with a longstanding history of severe, unrelenting right knee pain secondary to end-stage (grade IV) right knee osteoarthritis. Despite appropriate nonoperative management, including activity modification, anti-inflammatories, [id number] pain medication, bracing, physical therapy, and injections they continue to have pain and disability. Operative intervention was offered. The risks, benefits and expected outcomes were discussed in detail. These included but were not limited to: Infection, bleeding, injury to blood vessel or nerve, venous thromboembolism. All questions were answered to their satisfaction. Use of an nurse practitioner physicians assistant was necessary throughout the case for patient positioning and safety, soft tissue retraction, and closure. A modifier 22 should be added to this case. Patient weighs 121 kg with a BMI of 38. This made the dissection more difficult. Additionally, to reduce the risk of aseptic loosening a stemmed tibial component and antibiotic impregnated cement to reduce the risk of postoperative deep infection were used. These added time and cost to complete the case. PROCEDURE: Spinal anesthesia was administered. The patient was placed supine on the operating table. The nurse practitioner physicians assistant made sure the patient was positioned appropriately. The lower extremity was prepped and draped in the usual sterile fashion. The limb was exsanguinated with the Deyvi bandage. The pneumatic tourniquet was inflated to 225mmHg. A standard anterior incision was made with the knee in flexion. Subcutaneous dissection was sharply taken through fascial layer #1. Full-thickness medial and lateral flaps were elevated. The nurse practitioner physicians assistant retracted the soft tissues and protected them throughout the case. A standard subvastus approach was made. The patella was subluxed. The infrapatellar fat pad was debrided. The menisci and cruciate ligaments were sharply d?brided. Marginal osteophytes were d?brided with the rongeur. During the dissection, the patient was comfortable, without pain. However, had significant motor function of his hip flexors and abductors. This made proceeding difficult. Therefore, he was intubated and paralyzed. The drill was used to penetrate the femoral canal. The intramedullary femoral guide was placed for a 5-degree valgus cut, removing 10 mm off the distal femur. The saw was used to make the cut. Whitesides line and the trans epicondylar axis were marked. The femoral sizing guide was pinned onto the distal femur. Three degrees of external rotation nicely parallels the transepicondylar axis. Pins were placed for posterior referencing. The four-in-one cutting guide was pinned onto the distal femur. The anterior, posterior, and chamfer cuts were made. The nurse practitioner physicians assistant protected the collateral ligaments. The box cutting guide was pinned. The box cuts were made. The boxed trial was placed and was an excellent fit. Drill holes for the lugs were made. Attention was then turned to the proximal tibia. The intramedullary tibial guide was placed for a neutral varus/valgus cut with 3 degrees of posterior slope, removing 2 mm based off the medial tibial surface. The nurse practitioner physicians assistant protected the collateral ligaments and the neurovascular bundle. The saw was used to make the cut. Trial components were placed. The knee was nicely balanced in both flexion and extension. The trial components were removed. The tray was placed in appropriate rotation, parallel to our tibial cutting pins. It was pinned by the nurse practitioner physicians assistant and the drill x2 was used. The stemmed tibial trial was placed. The punch was used. The tray was removed. The punch was used again. A bone plug was placed in the femoral canal. Attention was then turned to the patella. [place] patellar thickness was 25 mm. The lobster claw resection guide was used with the 9.5 mm héctor. The saw was used to make the cut. Drill holes were made by the nurse practitioner physicians assistant. The trial was placed and was an excellent fit. Cancellous surfaces were irrigated with pulse lavage and thoroughly dried by the nurse practitioner physicians assistant. We cemented the tibial component, then the femoral component. We impacted the 8 mm polyethylene onto the tibial tray. The knee was brought into full extension. We then cemented the patellar component. Excessive cement was removed. The cement was allowed to harden. The knee was taken through a range of motion and was found to be nicely balanced in both flexion and extension. The patella tracks centrally. The nurse practitioner physicians assistant did a three minute dilute Betadine solution soak. The nurse practitioner physicians assistant irrigated the wound with 3 liters of normal saline via pulse lavage. The nurse practitioner physicians assistant reapproximated the extensor mechanism with #1 Vicryl in an interrupted [id number] fashion. The nurse practitioner physicians assistant then ran the extensor mechanism with a #1 PDO Stratafix. The nurse practitioner physicians assistant closed the subcutaneous tissues with a 3-0 Stratafix and the skin with a running 3-0 Stratafix in a subcuticular fashion. Glue was used to seal the skin. The nurse practitioner physicians assistant placed a dry dressing. Sponge and needle counts were correct x2. The patient tolerated the procedure well. There were no apparent complications. They were carefully transferred to the hospital bed and taken to the postanesthesia care unit in satisfactory condition. PLAN: The patient will be mobilized with physical therapy. Aspirin will be used for DVT prophylaxis. They will be discharged to home once medically appropriate.
[2025-06-17] MEDS: CEFAZOLIN 3 GM in 0.9 % SODIUM CHLORIDE Mini-bag 100 ML IVPB (17:36)
--- NOTE | 2025-06-17 20:08 | PC.NURSE ---
End of shift - Pt arrived from PACU at approximately 1435. Alert, oriented, cooperative. Pt denies pain, reports heaviness in operative leg. States he is comfortable. Pt tolerating O2 via nasal cannula at 2L to maintain saturation per MD order, later transitioned to RA at end of shift. Denies SOB, nausea, dizziness. Up with standby assistance, able to void during shift. CMS intact, ice pack on operative knee for improved comfort. When up to ambulate, dressing noted to not be adhered well to pt leg. After ambulation, blood spot noted to be present on dressing. call center dispatcher Orhto contacted and sent photo of pt dressing (see below). Given orders for intervention. Reported to oncoming RN and chemical analyst. Pt appears to be resting comfortably in chair with call light within reach at end of shift.
[2025-06-17] MEDS: ASPIRIN 81 MG TABLET EC PO (21:43)
[2025-06-17] MEDS: SENNOSIDES 1 TAB TABLET 2 TAB PO (21:43)
[2025-06-17] MEDS: ROSUVASTATIN CALCIUM 10 MG TABLET PO (21:43)
[2025-06-18 00:20] VITALS: BP 125/69; PULSE 82; RESP 18; TEMP 36.8; O2SAT 91; O2SAT 93
[2025-06-18] MEDS: ACETAMINOPHEN 500 MG TABLET 1000 MG PO ×2 (00:25→06:29)
[2025-06-18 02:42] VITALS: BP 126/71; PULSE 82; RESP 17; TEMP 36.7; O2SAT 92
[2025-06-18] MEDS: CEFAZOLIN 3 GM in 0.9 % SODIUM CHLORIDE Mini-bag 100 ML IVPB (02:49)
[2025-06-18 07:00] VITALS: RESP 18; O2SAT 92
[2025-06-18 07:50] VITALS: BP 117/65; PULSE 81; RESP 18; TEMP 36.8; O2SAT 92
--- NOTE | 2025-06-18 08:14 | PC.NURSE ---
Shift note ([id number]): Patient pleasant, alert and oriented. Ambulating with walker and stand by assist.?Noted bloody drainage seen through dressing to right knee at beginning of shift. Ingrid shift nurse updated Ortho PA. [place] outlined area and dressing was reinforced with tegaderm per PA instructions. This morning a trace amount of light discoloration?can be seen on outer edge of drawn outline on dressing. Ice pack applied. Pain controlled with scheduled medications. ?
--- NOTE | 2025-06-18 08:16 | PC.SOCIAL ---
Social Service Consult: SW met with patient who reports that he is doing well. Patient explains that he will have his for support at home and has a son that lives nearby.Patient reports he already has everything he feels he needs set up. SW to assist if needs/concerns arise.
[2025-06-18] MEDS: CELECOXIB 200 MG CAPSULE PO (08:29)
[2025-06-18] MEDS: TAMSULOSIN HCL 0.4 MG CAPSULE PO (08:29)
[2025-06-18] MEDS: ASPIRIN 81 MG TABLET EC PO (08:29)
[2025-06-18] MEDS: SENNOSIDES 1 TAB TABLET 2 TAB PO (08:29)
--- NOTE | 2025-06-18 08:30 | PM.ORPN ---
Subjective Subjective Time Seen by Provider: 08:30 Date Seen: 06/18/25 Principal diagnosis: Status post right knee replacement Interval history: Leonardo is comfortable. He has ambulated to the restroom several times. He denies nausea and vomiting. He will discharge to home today. Ortho Exam Narrative Exam Narrative: Alert and oriented x3. Patient is in no acute distress. Converses without labored breathing. Hearing is grossly intact. Ambulates with a walker. Examination of the right lower extremity shows the dressing is intact. There is a small area of bleeding into the dressing. No erythema or warmth or sign of infection. He is able to straight leg raise. CMS intact right lower extremity. Calf is soft and nontender. Const Vital Signs, click to edit/add: Vital Signs - 24 hr 06/17/25 09:35 06/17/25 10:35 06/17/25 10:40 Temperature 98.0 F Pulse Rate 77 74 72 Pulse Rate [Pulse Oximeter] Respiratory Rate 16 16 16 Blood Pressure 141/80 H 136/79 134/74 Blood Pressure [Left Arm] Pulse Oximetry 94 91 94 Oxygen Delivery Method Room Air Nasal Cannula Nasal Cannula Oxygen Flow Rate 2 2 06/17/25 13:55 06/17/25 14:00 06/17/25 14:05 Temperature 99.4 F Pulse Rate 85 83 83 Pulse Rate [Pulse Oximeter] Respiratory Rate 16 16 16 Blood Pressure 136/68 122/61 112/56 L Blood Pressure [Left Arm] Pulse Oximetry 88 91 91 Oxygen Delivery Method Nasal Cannula Oxygen Flow Rate 3 06/17/25 14:10 06/17/25 14:15 06/17/25 14:20 Temperature Pulse Rate 78 81 75 Pulse Rate [Pulse Oximeter] Respiratory Rate 16 16 16 Blood Pressure 114/63 113/63 109/60 Blood Pressure [Left Arm] Pulse Oximetry 91 90 92 Oxygen Delivery Method Nasal Cannula Room Air Oxygen Flow Rate 1 06/17/25 14:25 06/17/25 15:00 06/17/25 15:00 Temperature 97.1 F L 97.3 F L Pulse Rate 74 Pulse Rate [Pulse Oximeter] 69 Respiratory Rate 16 16 16 Blood Pressure 105/63 Blood Pressure [Left Arm] 114/69 Pulse Oximetry 93 91 93 Oxygen Delivery Method Room Air Nasal Cannula Nasal Cannula Oxygen Flow Rate 2 3 06/17/25 15:15 06/17/25 15:30 06/17/25 15:45 Temperature 97.4 F L Pulse Rate Pulse Rate [Pulse Oximeter] 82 83 75 Respiratory Rate Blood Pressure Blood Pressure [Left Arm] 124/106 H 117/71 106/72 Pulse Oximetry 90 91 95 Oxygen Delivery Method Nasal Cannula Nasal Cannula Nasal Cannula Oxygen Flow Rate 2 2 2 06/17/25 16:15 06/17/25 16:45 06/17/25 17:45 Temperature 97.5 F L 97.5 F L Pulse Rate Pulse Rate [Pulse Oximeter] 90 82 Respiratory Rate 18 18 Blood Pressure Blood Pressure [Left Arm] 117/62 119/73 118/85 Pulse Oximetry 90 90 Oxygen Delivery Method Nasal Cannula Nasal Cannula Oxygen Flow Rate 2 06/17/25 18:45 06/17/25 20:59 06/18/25 00:20 Temperature 98.4 F Pulse Rate Pulse Rate [Pulse Oximeter] 88 88 Respiratory Rate 18 18 Blood Pressure Blood Pressure [Left Arm] 131/78 140/68 H Pulse Oximetry 91 Oxygen Delivery Method Room Air Room Air Oxygen Flow Rate 06/18/25 00:20 06/18/25 02:42 06/18/25 07:00 Temperature 98.3 F 98.1 F Pulse Rate Pulse Rate [Pulse Oximeter] 82 82 Respiratory Rate 18 17 18 Blood Pressure Blood Pressure [Left Arm] 125/69 126/71 Pulse Oximetry 93 92 92 Oxygen Delivery Method Room Air Room Air Room Air Oxygen Flow Rate 06/18/25 07:50 06/18/25 07:50 Temperature 98.2 F Pulse Rate Pulse Rate [Pulse Oximeter] 81 81 Respiratory Rate 18 18 Blood Pressure Blood Pressure [Left Arm] 117/65 Pulse Oximetry 92 Oxygen Delivery Method Room Air Oxygen Flow Rate Assessment and Plan Assessment and plan (1) History of total right knee replacement: Problem details: Right total knee arthroplasty. Dr. Lutz, 06/17/25 Status: Acute Assessment and Plan: Plan for discharge is today to home if they meet discharge criteria. DVT prophylaxis includes aspirin 81 mg twice daily x1 month, Compression stockings as needed for swelling. Frequent ambulation, every hour throughout the day. Remove dressing in 1 week. Observe wound and phone Orthopedics with any questions or concerns Return to clinic in 1-2 weeks for a wound check as scheduled Return to clinic in 6 weeks with surgeon Minimize narcotic use. Wean off and discontinue soon as possible. Activities as tolerated. No strenuous activity. Outpatient physical therapy as scheduled. Ice and elevate the operative extremity. No restriction on ice.
--- NOTE | 2025-06-18 11:29 | PC.NURSE ---
Discharge: Patient pleasant and cooperative, A&O. VSS, afebrile. SpO2 maintained above 90% on RA. Pt reports 3/10 pain in his right knee this shift, managed with scheduled medication and PRN medication, see NOV. Dressing to right knee has bloody drainage that has been circled and stayed within the margin today. SBA with walker and gait belt. Tolerating regular diet, denies nausea. IV removed with tip intact. Discharge instructions provided, all questions answered.
== END 2025-06-18 10:45 | disposition home or self-care (01) ==
LOC: OR 08:25 → MEDSURG 08:27
PROVIDERS: PCP Physician Assistant; Visit Provider Orthopaedic Surgery
PROC: (CPT 27447; principal; 2025-06-17 10:45)
DX: M17.0 Bilateral primary osteoarthritis of knee (principal); G89.18 Other acute postprocedural pain; Q62.10 Congenital occlusion of ureter, unspecified; R73.03 Prediabetes; E66.9 Obesity, unspecified; Z68.38 Body mass index [BMI] 38.0-38.9, adult; G47.33 Obstructive sleep apnea (adult) (pediatric); I35.0 Nonrheumatic aortic (valve) stenosis; C61 Malignant neoplasm of prostate
CPT/HCPCS: 27447; 01402; 64447; 64454; 73560; 76942; 82962; 97110; 97116; 97161; 97165; 97535; 99100; A9270; C1776; J0330; J0665; J0690; J1100; J2250; J2405; J2704; J2710; J3010; J3490; J7120